=== PATIENT | male | born 1955 | race Caucasian/White ===

== ENCOUNTER 2023-07-23 20:48 | Inpatient (IN) | payer MEDICARE, OTHER, SELFPAY ==
[2023-07-23] VITALS (7 sets, daily range): BP systolic 115–159; BP diastolic 65–86; BMI 29.9
[2023-07-23 16:33] LABS: % Basophils 0.9 % (0-2); % Eosinophils 2.3 % (0-6); % Immature Granulocytes 0.1 % (0-0.5); % Lymphocytes 25.1 % (20.5-51.1); % Monocytes 11.7 % (1.7-9.3); % Neutrophils 59.9 % (42.2-75.2); Absolute Basophils 0.1 10^3/uL (0-0.2); Absolute Eosinophils 0.2 10^3/uL (0-0.7); Absolute Lymphocytes 1.7 10^3/uL (1.2-3.4); Absolute Monocytes 0.8 10^3/uL (0.1-0.6); Absolute Neutrophils 4.1 10^3/uL (1.4-6.5); Hemoglobin 15.2 g/dL (13.0-18.0); Mean Corpuscular Hgb 29.7 pg (27.0-31.0); Mean Corpuscular Volume 89.8 fL (80.0-94.0); Mean Platelet Volume 11.9 fL (7.4-10.4); Nucleated Red Blood Cells % 0 % (-); Platelet Count 200 10^3/uL (130-400); Red Blood Cell Count 5.12 10^6/uL (4.70-6.10); Red Cell Dist. Width 13.2 % (11.5-14.5); White Blood Cell Count 6.9 10^3/uL (4.8-10.8)
[2023-07-23 16:52] LABS: ALT (SGPT) 40 U/L (0-50); AST (SGOT) 47 U/L (17-59); Albumin 4.6 g/dl (3.5-5.0); Alkaline Phosphatase 56 U/L (38-126); Blood Urea Nitrogen 17 mg/dl (9-20); Calcium 10.4 mg/dl (8.4-10.2); Carbon Dioxide 23 mmol/L (22-30); Chloride 105 mmol/L (98-107); Glucose 93 mg/dl (70-99); Potassium 4.3 mmol/L (3.5-5.1); Sodium 138 mmol/L (135-145); Total Bilirubin 0.9 mg/dl (0.2-1.3); Total Protein 7.1 g/dl (6.3-8.2); eGFR > 60.00
[2023-07-23 17:01] LABS: Troponin I 0.033 ng/ml
--- NOTE | 2023-07-23 17:14 | ED.GENMED ---
History of Present Illness
General
Chief Complaint: Chest Pain
Source: patient
Time Seen by Provider: 07/23/23 16:56
Travel History
Have you had any contact with someone who has COVID-19?: No
Do you have any symptoms of coronavirus? Fever > 100 degrees, chills, cough, shortness of breath, sore throat, loss of taste or smell, muscle aches, or headache?: No
History of Present Illness
History of Present Illness:
68-year-old male with past medical history of hypertension, hyperlipidemia, previous diabetes) notes that this was managed with weight loss, diet and exercise and is no longer taking medication), known CAD with reported 50 to 69% blockage in a
coronary vessel presenting the emergency department for evaluation after 30 minutes prior to arrival while working on a sink developed chest pain described to be a tightening/gripping sensation that radiated from the left side of his chest to the
right and into his back associated with diaphoresis. Patient states that he still had the symptoms upon arrival to the emergency department however at time of my examination patient is currently chest pain-free. He did not take any medications
prior to arrival to the emergency department. He notes that despite his coronary artery disease he is not on any antiplatelet medication or anticoagulant. He does report good compliance with his medications. He denies any fevers, chills, rigors,
cough, pleurisy, palpitations, lower extremity edema/pain or any other concerns. He does note that few months ago he did have a cardiac stress test which was unremarkable. 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
concerned about the coronary artery disease and notes that his warehouse loader does not seem to be doing anything about it.
Past History
Past History
ED Past Medical History: Asthma (seasonal), CAD, HTN, Hypercholesterolemia, NIDDM (Diet controlled) and Other (Chronic diverticulitis, PNA, DVT, Renal calculus, )
ED Past Surgical History: Tonsilectomy and Other (Hernia repair); Negative Appendectomy, Bowel resection, Cardiac or Cholecystectomy
Social History
Tobacco: Former smoker
Alcohol: Occasional
Drug: None
Personal:
Living: with family
Employment: Employed
Family History
Family History: Hypertension
Review of Systems
Review of Systems
All Other Systems: ROS reviewed and negative except as documented in HPI and ROS
Phy Exam
Physical Exam
Physical Exam:
GENERAL: Alert , in no apparent distress
HEAD: Normocephalic atraumatic
EYE: Clear conjunctiva
NECK: Supple
ENT: o/p clr, mmm.
CARDIAC: Regular rate and rhythm, no murmur .
LUNGS: Clear breath sounds bilaterally, no acute respiratory distress, no wheezes/rales/rhonchi
ABDOMEN: Soft, without focal tenderness, no r/g, no cvat
NEUROLOGICAL: Alert and oriented
SKIN: Warm and dry, skin intact.
MUSCULOSKELETAL: No edema, well perfused.
PSYCH: Normal and appropriate interaction.
Scores
Heart Failure Risk
Heart Failure Risk Score: Not Applicable
Heart Score for Chest Pain Patients
STEMI patient?: No
History: Moderately Suspicious
ECG: Nonspecific Repolarization
Age: >/= 65 years
Risk Factors: >/= 3 Risk Factors or History of CAD
Troponin: </= Normal Limit
Heart Score for Chest Pain Patients: 6
Heart Score Risk: 20.3% MACE over next 6 weeks
Withdrawal Assessment of Alcohol
Withdrawal Assessment Completed?: Not applicable
Course
Orders/Labs/Results
Orders:
Orders
07/23/23 Breakfast
Cholesterol Lowering
At Your Request: Full Participation
Does patient need a safe tray?: No
Cholesterol Lowering: Sodium, 2 Gram
07/23/23 16:13
EKG [Electrocardiogram (*1)] Urgent
Reason for Study: Chest Pain
Electrocardiogram (*1) Urgent
Reason for Study: Chest Pain
EKG- Treatment ONCE
EKG- Treatment ONCE
07/23/23 16:23
CBC/With Diff [Complete Blood Count/With Diff] Urgent
CMP [Comprehensive Metabolic Panel] Urgent
Glycohemoglobin (HgbA1c) Urgent
Troponin I Urgent
07/23/23 17:07
Electrocardiogram (*1) Urgent
Reason for Study: Chest Pain
CT Chest/abd/pelvis Angio W/wo Urgent
Comment:
Reason For Exam: chest pain, radiating to back, known CAD
EKG- Treatment ONCE
07/23/23 18:40
Aspirin Chewable [Low Strength Aspirin] 324 mg PO NOW STA
07/23/23 19:19
Mag Hydrox/Al Hydrox/Simeth [Maalox] 30 ml Phenobarb/Hyoscy/Atropine/Scop [] 10 ml Viscous Lidocaine 2% [Xylocaine Viscous Cup] 10 ml PO NOW
07/23/23 19:22
Troponin I Urgent
07/23/23 20:20
Admit/Transfer Patient As Directed
Co-Sign Provider:
Level of Care: Inpatient admission
Assign to:: Telemetry
Physician / Group: murali sellers
Diagnosis: chest pain
Reason for Telemetry: Chest Pain syndromes
Date to Stop Telemetry: 07/25/23
Time to Stop Telemetry: 11:00
Reason for Hospitalization: chest pain
Expected length of stay greater than two midnights?: Yes
ELOS- Estimated Length of Stay in days: 3
I certify the patient meets the requirements for IP care: Yes
07/23/23 20:21
Code Status As Directed
Resuscitation Status: Full Code
07/23/23 21:36
Morphine Sulfate 1 mg IV Q4HPRN PRN
Ondansetron Injectable [Zofran] 4 mg IV Q6HPRN PRN
07/23/23 21:36
Echo 2D MMode Color/Doppler Routine
Reason for Study: chest pain
CARDIOLOGY CONSULT Routine
Consulting Provider: Byron Unger
Was physician already notified: Yes
Activity As Directed
Activity Level: As Tolerated
INT (Intravenous Needle Therapy) As Directed
Comment: maintain peripheral IV access
Intake/ Output As Directed
Frequency: Per unit guidelines
Obtain Records As Directed
Dates of Information to be Released: all
Type of Information Requested: Entire Record
Obtain Records from: entire medical records from [facility]
Vital Signs As Directed
Frequency: q4h
Weight As Directed
Frequency: Daily
DX Deep Vein Thrombosis Video Routine
07/23/23 22:00
Atorvastatin [Lipitor] 20 mg PO HS
Valsartan [Diovan] 40 mg PO HS
07/24/23 06:00
Electrocardiogram (*1) IN AM
Reason for Study: Chest Pain
Comment: at admission and Q3H for total of 3, to be done with each troponin
Basic Metabolic Panel IN AM
Cardiovascular Evaluation IN AM
Complete Blood Count/No Diff IN AM
07/24/23 07:30
Troponin I Q6H
Comment: at admit & Q3H for 3 total including ED draws, obtain ECG with each level
07/25/23 06:00
Basic Metabolic Panel IN AM
Complete Blood Count/No Diff IN AM
07/25/23 11:00
DC Protocol for Telemetry ONCE
07/26/23 06:00
Basic Metabolic Panel IN AM
Complete Blood Count/No Diff IN AM
07/27/23 06:00
Basic Metabolic Panel IN AM
Complete Blood Count/No Diff IN AM
07/28/23 06:00
Basic Metabolic Panel IN AM
Complete Blood Count/No Diff IN AM
Abnormal Lab Results
07/23/23
16:23
MPV 11.9 H fL
(7.4-10.4)
Absolute Monos (auto) 0.8 H 10^3/uL
(0.1-0.6)
Monocytes % 11.7 H %
(1.7-9.3)
Calcium 10.4 H mg/dl
(8.4-10.2)
07/23/23 16:23
07/23/23 16:23
Vital Signs
Initial and Last Documented VS:
Initial Vital Signs
Temp Pulse Resp BP Pulse Ox
97.8 F 58 18 159/86 100
07/23/23 16:15 07/23/23 16:15 07/23/23 16:15 07/23/23 16:15 07/23/23 16:15
Last Documented Vital Signs
Temp Pulse Resp BP Pulse Ox
98 F 65 19 139/75 99
07/23/23 21:46 07/23/23 21:46 07/23/23 21:46 07/23/23 21:46 07/23/23 21:46
Aircraft Powertrain Repairer consulted with Physician
Aircraft Powertrain Repairer consulted with physician?: Yes
Name of Physician Consulted: Kassi
MDM/Problems Addressed
Differential Diagnosis Includes:
ACS, aortic dissection, aneurysm, PE
MDM/Problems Addressed:
68-year-old male presenting to the emergency department for evaluation of sudden onset chest pain associated with diaphoresis about 30 minutes prior to arrival to the emergency department. Symptoms currently resolved. Patient is hemodynamically
stable. His blood pressure from triage to now during my exam is significantly improved as well and within normal limits. Patient with multiple risk factors for coronary artery disease and vascular disease, already has known significant stenosis of
a coronary vessel. Reports a normal stress test within the last few months. Currently not on any antiplatelets which is certainly odd given patient's known coronary artery disease greater than 50%. Given the radiating nature of the pain I do have
some concerns for aortic pathology so will obtain a dissection study. Given patient is pain-free at time of my exam we will repeat an EKG. Anticipate admission.
Chronic conditions affecting care: HTN and CAD
Acute Exacerbation and/or Progression of Chronic Illness: CAD
*Radiology
Radiology exam reviewed: radiology read reviewed
*Pulse Oximetry
Patient hypoxic: no
*EKG
Interpreted by ED Provider?: Yes
Comparison EKG: no changes
Heart Rate: 62
Rate: normal
Rhythm: sinus
[place]: normal axis
Ischemia: ST elevation (diffuse but unchanged from previous)
*Material Yard Clerk Interpretation
Rate: normal
Rhythm: sinus
*Critical Care Note
Total Time (30-74mins, 75-104mins- exclusive of procedures): Not Applicable
Data Reviewed
Review of Other/Old Records Reveals: Labs, Records and Radiology Studies (Patient have CT of the abdomen pelvis in August 2022 which did not show any aneurysms within the abdomen)
Comment
Comment:
Patient CT is negative for any acute pathologies. His troponin did come back at the high end of normal and I am suspicious for symptomatic angina given his known coronary artery disease and risk factors as well as not being on any antiplatelet
medications. Repeat troponin was ordered for 7:15 PM however will admit to hospitalist team for continued evaluation and treatment with anticipation of cardiology consult in the morning.
Patient Management
Discussion with other providers: Hospitalist
Escalation/DeEscalation of care consider admission/obs:
7 PM: Shortly after telling the patient about his CT workup as well as recommendation for him to stay in the hospital for further cardiac workup he states his chest pain came back slightly and is 2 out of 10. Repeat EKG was done which shows sinus
bradycardia 59 bpm. There are no ST segment changes or any other signs of ischemia. I do suspect this may be a little bit of anxiety over patient's presentation to the ER as well as his workup thus far. Will continue to monitor. Continue to
trend troponins. Hospitalist to admit.
ED Attending Note
-
Portions of this chart may have been created with voice recognition software.� Occasional wrong word or��sound alike� substitutions may have occurred due to the inherent limitations of voice recognition software.
Discharge Plan
Departure
Patient Disposition: Admit
Date of Disposition: 07/23/23
Time of Disposition: 20:06
Presentation/result/management discussed w/ accepting MD/DO: Hospitalist
Discharge Problem:
Chest pain
Interventions
Interventions:
*Risk Screen - Suicide Last Done: 07/23/23 16:15
*General Assessment Last Done: 07/23/23 16:15
ED- Fall Risk Assessment Last Done: 07/23/23 16:45
*ED COVID-19 Vaccine History Last Done: 07/23/23 16:15
*Nursing Disposition Last Done: 07/23/23 21:36
ED- Cardiac Assessment Last Done: 07/23/23 16:45
Discharge Date and Time
Discharge Date/Time: 07/23/23 21:36
[2023-07-23] MEDS: LOW STRENGTH ASPIRIN 324 MG PO (18:42)
[2023-07-23 19:50] LABS: Troponin I 0.026 ng/ml
--- NOTE | 2023-07-23 20:44 | HPS.HSE ---
Addendum entered and electronically signed by Zenaida España MD 07/23/23 21:01:
d/w Dr. Unger - add BB, IV heparin and keep NPO p MN just in case
Original Note:
Family Physician
-
Family Physician: BARON TALAVERA PA-C
Chief Complaint
-
chest pain
History of Present Illness
68 y/o M, hx of CAD, HTN, HLD and DM (resolved with weight loss) presents to ER for Chest pain. Patient reports chest pain today with sweats. This occured as he was exerting himself while working on his kitchen sink. The pain was 7/10, central
chest, radiating down both arms. Improved with rest and time but remains persistant at 2/10 now. No associated lightheadedness, palpitations or SOB. No other complaints.
Patient reports nearly 100 lb weight loss on vegan diet but recently switched over the 'carnivore' diet (mostly meats).
He was cathed at in ~2013 at [facility] with 40% disease and most recent cardiac MRI showed 50-69% disease. A stress test from 3 months ago was normal.
in ER, trop .03 and then .026. EKG with sinus bradycardia.
Medical History
Past Medical History
Past Medical History: Reports Other (CAD, HTN, HLD and DM)
Past Surgical History: Reports Tonsilectomy and Other (inguinal hernia repair)
Social History
Tobacco: Former Smoker
Alcohol: Occasional
Drug: None
Personal:
Living: With Family
Family History
Family History: Hypertension
Allergies / Home Medications
Allergies reflects when Allergies were last updated in [facility].
Home Medications with original date entered in [facility]
Allergy/Medication List:
Allergies
Allergy/AdvReac Type Severity Reaction Status Date / Time
lisinopril Allergy Shortness Verified 07/23/23 16:13
of Breath
tetanus toxoid, adsorbed Allergy Unknown Verified 07/23/23 16:13
Home Medications
atorvastatin 20 mg tablet 20 mg PO HS High cholesterol 01/11/21
ascorbic acid (vitamin C) 500 mg tablet (Vitamin C) 1,000 mg PO QPM Supplement 01/24/21
EPA-DHA 2 g PO QPM 07/23/23
cholecalciferol (vitamin D3) 5 g PO QPM 07/23/23
coenzyme Q10 100 mg capsule (Co Q-10) 100 mg PO QPM 07/23/23
magnesium 250 mg tablet 500 mg PO QPM 07/23/23
multivitamin 1 tab PO DAILY 07/23/23
valsartan 40 mg tablet 40 mg PO HS 07/23/23
vitamin B complex 1 tab PO QPM 07/23/23
zinc acetate 50 mg (zinc) capsule 50 mg PO QPM 07/23/23
Review of Systems
-
A 12 point ROS was completed and negative except as noted: Yes
Physical Exam
Vital Signs
Vital Signs
Temp Pulse Resp BP Pulse Ox
97.8 F 57 21 126/77 97
07/23/23 16:15 07/23/23 17:30 07/23/23 17:30 07/23/23 17:00 07/23/23 17:30
Physical Exam
General: No Apparent Distress
Respiratory: No Wheezes or Rales
Cardiac: S1/S2 and Regular Rhythm
Neuro: AO x 3
Hematologic/Lymphatic: No Lymphadenopathy
Psych: Calm
Laboratory Results
-
07/23/23 16:23
07/23/23 16:23
Laboratory Results
Total Bilirubin 0.9 mg/dl (0.2-1.3) 07/23/23 16:23
AST 47 U/L (17-59) 07/23/23 16:23
ALT 40 U/L (0-50) 07/23/23 16:23
Alkaline Phosphatase 56 U/L (38-126) 07/23/23 16:23
Troponin I 0.026 ng/ml 07/23/23 19:22
Data Reviewed
-
Lab Data: Labs Reviewed by me
Impression/Plan
-
Assessment:
typical chest pain
- OBS tele
- trend trop
- AM EKG
- prn SL nitro
- start ASA
- continue statin; check lipids. check A1c
- Echo
- CBC cardiology consult
- records request from [facility] - he would like to switch to [facility]
- dietary consult: he is now on carnivore diet (from vegan diet)
Essential HTN
HLD
Diet controlled DM
- continue ARB
- check A1c and lipids
DVT ppx: Lovenox
Code: Full
[2023-07-23] MEDS: NITROSTAT (SUBLINGUAL) 0.400000000000000022 MG SL (21:04)
[2023-07-23 22:05] LABS: APTT 27.3 Sec (23.4-35.0)
[2023-07-23] MEDS: HEPARIN 25000 UNITS/250 ML IV (22:11)
[2023-07-23] MEDS: LIPITOR 20 MG PO (22:11)
[2023-07-23] MEDS: NITRO-BID 1 INCH TOPICAL (22:11)
[2023-07-23] MEDS: DIOVAN 40 MG PO (22:13)
--- NOTE | 2023-07-23 22:34 | PTCARENOTE ---
Pt admitted to 4E. AAOx3. NSR w/ prolong QT. No c/o CP. Lungs. GI, WNL. Heparin gtt initiated. Pt was informed about the plan for tomorrow and will be NPO. Pt appears comfortable in bed and call real within reach.
[2023-07-24] VITALS (14 sets, daily range): BP systolic 110–147; BP diastolic 68–97; BMI 29.9
--- NOTE | 2023-07-24 03:05 | DOWNTIME ---
There was a [employer] Client Mechanic Assistant Downtime on 07/23/2023 from 0100 to 07/24/2023 at 0300. Downtime documentation of patient's care, including medication administrations, has been reconciled in the electronic record per guidelines. Refer to the
patient's paper chart under the miscellaneous tab to see printed paper medication records and downtime forms.
[2023-07-24] MEDS: NITRO-BID 1 INCH TOPICAL (04:32)
[2023-07-24 04:47] LABS: Hematocrit 40.6 % (39.0-52.0); Mean Corp Hgb Conc. 34.5 g/dL (33.0-37.0); Mean Corpuscular Hgb 29.9 pg (27.0-31.0); Mean Corpuscular Volume 86.8 fL (80.0-94.0); Mean Platelet Volume 11.6 fL (7.4-10.4); Platelet Count 171 10^3/uL (130-400); Red Blood Cell Count 4.68 10^6/uL (4.70-6.10); Red Cell Dist. Width 13.2 % (11.5-14.5); White Blood Cell Count 6.4 10^3/uL (4.8-10.8)
[2023-07-24 04:55] LABS: APTT 51.2 Sec (23.4-35.0)
[2023-07-24 05:11] LABS: Blood Urea Nitrogen 12 mg/dl (9-20); Calcium 9.6 mg/dl (8.4-10.2); Carbon Dioxide 24 mmol/L (22-30); Chloride 106 mmol/L (98-107); Estimated Creatinine Clearance > 125 ml/min; Glucose 83 mg/dl (70-99); HDL Cholesterol 54 mg/dl; LDL Cholesterol, Calculated 65 mg/dl; Potassium 3.8 mmol/L (3.5-5.1); Sodium 139 mmol/L (135-145); Total Cholesterol 127 mg/dl (50-199); Triglyceride 44 mg/dl (10-149); Very Low Density Lipoprotein 8 mg/dl (0-30); eGFR > 60.00
--- NOTE | 2023-07-24 06:35 | W.PN.UPDATE ---
Update Note
Progress Note Update
critical troponin at 1.320, patient is on Heparin drip, NPO. Patient asymptomatic at present, stable VS, Dr. Unger made aware
[2023-07-24] MEDS: LOW STRENGTH ASPIRIN 81 MG PO (08:54)
--- NOTE | 2023-07-24 09:44 | CON.CAR ---
Consultation
Consultation Request
Date/Time Consultation Requested: July 24, 2023
Date/Time Consultation Performed: July 24, 2023
Requesting Provider: Hospitalist
Performing Provider: Howard Salas
Reason for Consultation: Chest pain
Medical History
-
Chief Complaint: Chest pain
History of Present Illness:
68-year-old male with history of mild CAD, hypertension, hyperlipidemia, and previous type 2 diabetes resolves with weight loss and former smoker is here with chest pain. He tells me that yesterday he was switching and fixing a sink. During this
time. He developed chest pain that was central in location radiation down both arms and back and profuse sweating. He had no other symptoms. However, because of the sweating with mild exertion as well as chest pain he was concern for heart artery
disease. He then decided to present to the emergency room. He was given nitro in the emergency room which resolved his chest pain. On previous heart catheterizations he was only noted to have mild coronary artery disease. Additionally, he was
able to work out 2 days ago with heavy weights and had no symptoms.
Past Medical History
Past Medical History: Other (CAD, hypertension, hyperlipidemia, and previous type 2 diabetes resolves with weight loss and former smoker )
Past Surgical History: Tonsilectomy and Other (inguinal hernia repair )
Social History
Tobacco: Former Smoker
Alcohol: Occasional
Personal:
Living: With Family
Family History
Family History: Reviewed & Not Pertinent
Allergies / Home Medications
Allergy/AdvReac Type Severity Reaction Status Date / Time
lisinopril Allergy Shortness Verified 07/23/23 16:13
of Breath
tetanus toxoid, adsorbed Allergy Unknown Verified 07/23/23 16:13
�Medication �Instructions �Recorded �Confirmed �Type
atorvastatin 20 mg tablet 20 mg PO HS High cholesterol 01/11/21 07/23/23 History
ascorbic acid (vitamin C) 500 mg 1,000 mg PO QPM Supplement 01/24/21 07/23/23 History
tablet (Vitamin C)
EPA-DHA 2 g PO QPM 07/23/23 07/23/23 History
cholecalciferol (vitamin D3) 5 g PO QPM Supplement 07/23/23 07/23/23 History
coenzyme Q10 100 mg capsule (Co 100 mg PO QPM 07/23/23 07/23/23 History
Q-10)
magnesium 250 mg tablet 500 mg PO QPM Supplement 07/23/23 07/23/23 History
multivitamin 1 tab PO DAILY Supplement 07/23/23 07/23/23 History
valsartan 40 mg tablet 40 mg PO HS Blood Pressure 07/23/23 07/23/23 History
vitamin B complex 1 tab PO QPM Supplement 07/23/23 07/23/23 History
zinc acetate 50 mg (zinc) capsule 50 mg PO QPM Supplement 07/23/23 07/23/23 History
Review of Systems
-
All other systems: Negative unless noted
Physical Exam
Vital Signs
Temp Pulse Resp BP Pulse Ox
97.6 F 62 18 134/78 98
07/24/23 08:07 07/24/23 08:07 07/24/23 08:07 07/24/23 08:07 07/24/23 08:07
Lab Results
07/24/23 04:35
07/24/23 04:35
Troponin I 2.010 ng/ml H* D 07/24/23 07:18
Physical Exam
General: Well Developed and Well Nourished
HEENT: Normocephalic and Moist Mucous Membranes
Respiratory: Clear and Non Labored Respirations
Cardiac: S1/S2 and Regular Rhythm
GI: Soft
Musculoskeletal: No Clubbing, No Cyanosis and No Edema
Skin: Warm and Dry
Neuro: AO x 3
Hematologic/Lymphatic: No Lymphadenopathy
Psych: Calm
Impression / Plan
-
68-year-old male with history of mild CAD, hypertension, hyperlipidemia, and previous type 2 diabetes resolves with weight loss and former smoker is here with chest pain, elevated troponins, and likely NSTEMI.
NSTEMI
-Heparin aspirin statin and Hedis Manager later today
-Echocardiogram pending
-Blood pressure control and risk factor management
Hypertension
-Continue ARB
Data Reviewed
-
EKG: Tracing Personally Visualized and interpreted (sr)
Medical Tests (Nuc Med, Echo etc): Report Reviewed by me
Labs: Labs Reviewed by me
[2023-07-24] MEDS: NITRO-BID TOPICAL (10:03)
--- NOTE | 2023-07-24 10:22 | ITS.CL.ANGIO ---
Inspector Production Plastic Parts - Angioplasty
Angioplasty
Procedure Report:
CARDIAC CATHETERIZATION REPORT
Date of Procedure: 07/24/2023
Referring: Howard Salas M.D.
INDICATION: Non-ST elevation myocardial infarction.
PROCEDURE:
1. Left heart catheterization.
2. Coronary angiography.
3. Successful PCI of the mid RPDA.
4. Successful IFR of the mid LAD.
ACCESS:
6 [place] right radial artery.
CATHETERS:
1. 5 [place] JR4.
2. 5 [place] JL 3.5.
3. 6 [place] JR4 guiding catheter.
4. 6-minute EBU 3.5 guiding catheter.
HEMODYNAMIC DATA
Weight (kg): 88.9
AO (s/d/x, mmHg): 135/86/108
LV (s/x mmHg): 137/11
LEFT VENTRICULOGRAPHY: Not performed.
CORONARY ANGIOGRAPHY
Dominance: Right.
Left Main: Normal size, bifurcating vessel. There is no coronary artery disease.
LAD: Large size vessel giving rise to 2 significant diagonals before wrapping around the apex and supplying the distal inferior wall. There is a 50-60% lesion in the mid vessel, spanning the origin of the second diagonal.
Ramus: Congenitally absent.
Circumflex: Normal size, nondominant vessel giving rise to 2 obtuse marginals. The first obtuse marginal is a small, 1 mm vessel. The second obtuse marginal is a large vessel which subsequently trifurcates into 3 daughter branches and supplies
the majority of the lateral and inferolateral wall. There is no coronary artery disease.
RCA: Large size, dominant vessel with a significant posterolateral arcade. There is a hazy, 80% lesion in the mid RPDA.
INTERVENTION(S)
1. Successful PCI of the culprit, 80% mid RPDA lesion (Medtronic [place] 2.25 x 12 CONNIE) with reduction in stenosis to 0%, maintaining EAGLE-3 flow.
2. Successful IFR of the 60% mid LAD lesion, demonstrating nonocclusive disease (IFR = 0.96).
Narrative:
The decision was made to proceed with percutaneous coronary intervention. The diagnostic catheter was removed over a wire and a 6Fr JR4 guiding catheter was advanced to the aortic root and seated in the right coronary artery. Additional heparin was
given and a Power Turn Flex wire was advanced into the distal RPDA. The 80% mid RPDA lesion was predilated with a 2.0 x 12 semi-compliant balloon to 12 matt. The semi-compliant balloon was removed and a Medtronic [place] 2.25 x 12 drug-eluting
stent was advanced. The stent was deployed at 12 atmospheres. The stent balloon was removed. Angiography was performed in orthogonal views, confirming good stent expansion and an excellent angiographic result. The coronary wire was withdrawn and the
guide was disengaged from the artery.
The decision was made to perform physiologic testing. The 6 [place] JR4 guiding catheter was removed over a wire and exchanged for a(n) 6 [place] EBU 3.5 guiding catheter. The guiding catheter was advanced into the ascending aorta and seated in the
left main coronary artery. An iFR wire was zeroed outside of the body, then inserted into the guiding sheath. The wire was advanced and the transducer was normalized just outside of the guiding catheter tip. The wire was advanced into the distal
LAD. Three iFR measurements were taken. The lesion was determined to be nonocclusive (0.96). The catheter was disengaged and the wire was removed. The catheter was removed over a J-wire.
Closure Device: Vascular band.
Radiation (mGy): 1002.06
DAP (cm2.Gy): 79.4466
Fluoroscopy time (minutes): 7.9
Sedation time (minutes): 46
CONCLUSIONS
1. Right dominant circulation with a nonocclusive 50-60% mid LAD lesion (IFR = 0.96) and a culprit, 80% mid RPDA lesion status post successful PCI (Medtronic [place] 2.25 x 12 CONNIE) with reduction in stenosis to 0%, maintaining EAGLE-3 flow.
2. Normal filling pressures (LVEDP = 11 mmHg at 88.9 kg).
RECOMMENDATIONS:
1. Expectant management after cardiac catheterization via right radial approach.
2. Limited weight bearing on the right wrist for one week.
3. Dual antiplatelet therapy for at least 12 months, followed by aspirin indefinitely. The patient was given ticagrelor in the procedure, but it appears that this is cost prohibitive. We will transition to clopidogrel.
4. Increase atorvastatin to 40 mg daily for secondary prevention. Goal LDL <55.
5. Guideline directed medical therapy as hemodynamics tolerate.
6. Echocardiogram pending.
7. Referral to cardiac rehab.
Copy to: Howard Salas M.D., Sergey Faust PA-C, Sergey Carver M.D.
Lasha Umaña DO, FACC, FACP
[2023-07-24 10:41] LABS: Glycohemoglobin (HgbA1c) 5.1 % (4.0-5.6)
[2023-07-24] MEDS: NSS 1000 IV (11:15)
--- NOTE | 2023-07-24 11:18 | CM ---
Alert awake oriented patient who lives with his Jannette who lives in a 2 story home with 1 step to enter and 13 steps to bed and bathroom. He is independent in driving and in all activities of daily living.He was offered VN he declined need.No
adaptive devices. MD requested Brilinta cost which is $429.08 Informed MD of cost and said CM would give him a coupon. MD changed to Plavix. Pt now on IVU floor.
No VN hx / No SNF history
Pharmacy [facility]
PCP DR Faust
PLAN Home Declined VN
--- NOTE | 2023-07-24 11:48 | W.PN.HOSP.TC ---
Today's Communication/Plan
-
see plan
Assessment / Plan
Assessment / Plan
68 y/o M, hx of CAD, HTN, HLD and DM (resolved with weight loss) presents to ER for Chest pain found to have NSTEMI now s/p cardiac cath s/p PCI to RPDA 80% lesion.
CONCLUSIONS
1. Right dominant circulation with a nonocclusive 50-60% mid LAD lesion (IFR = 0.96) and a culprit, 80% mid RPDA lesion status post successful PCI (Medtronic [place] 2.25 x 12 CONNIE) with reduction in stenosis to 0%, maintaining EAGLE-3 flow.
2. Normal filling pressures (LVEDP = 11 mmHg at 88.9 kg).
NSTEMI
-s/p cardiac cath this morning with results above
-continue Asa/Plavix
-HOUSEKEEPER CAREGIVER Lipitor increased
-HOUSEKEEPER CAREGIVER Valsartan
-appreciate cardiology
-F/U TTE
FULL CODE
Anticipated Discharge: Within 24 hours
Subjective/Interval History
-
Date of Service: July 24, 2023
seen post cath
no chest pain
right wrist access with band currently on
Objective Data
-
Labs:
Laboratory Results
07/24/23 07/24/23
04:35 11:15
WBC 6.4
Hgb 14.0
Hct 40.6
Plt Count 171
APTT 51.2 H Pending
Sodium 139
Potassium 3.8
Chloride 106
Carbon Dioxide 24
BUN 12
Creatinine 0.6 L
Glucose 83
Calcium 9.6
Vital Signs:
Vital Signs
Temp Pulse Resp BP Pulse Ox
97.8 F 62 20 134/78 97
07/24/23 10:42 07/24/23 08:07 07/24/23 10:42 07/24/23 08:07 07/24/23 10:42
I&O
07/23/23 07/24/23 07/25/23
06:59 06:59 06:59
Intake Total 580 / 580
Output Total 900 / 900 110 / 110
Balance -320 / -320 -110 / -110
Review of Systems
-
History Source: Patient
All other systems: Reviewed and negative
Physical Exam
-
General: No Apparent Distress
Respiratory: Clear to Auscultation; Negative Wheezes
Cardiac: S1/S2
GI: Soft and Nontender
Musculoskeletal: No Edema
Skin: Warm and Dry; Negative Rash
Psych: Calm
Data Reviewed
-
Diagnostic Radiology: Report Reviewed by me
Labs: Labs Reviewed by me
--- NOTE | 2023-07-24 16:48 | PTCARENOTE ---
Pt received post cath at 1045. Right radial band intact with no bleeding or hematoma. Pt denies any chest pain or sob. Pt oob post bedrest. Gait steady, no c/o offered.
[2023-07-24] MEDS: BRILINTA 90 MG PO (19:51)
--- NOTE | 2023-07-24 21:07 | PTCARENOTE ---
Assumed care of patient at change of shift. Ambulates self in room and denies any dizziness. AAOx3, VSS, and denies any chest pain. Tele monitor shows SR-Sinus rashid. HR in the 50-60's at rest. Right radial dressing intact, and pt aware of activity
restrictions. Aware of POC, call real in reach.
[2023-07-24] MEDS: LIPITOR 80 MG PO (22:23)
[2023-07-24] MEDS: DIOVAN 40 MG PO (22:24)
[2023-07-25 04:14] VITALS: BP 126/85
[2023-07-25 04:16] VITALS: BMI 29.4
[2023-07-25 05:28] LABS: Hematocrit 44.4 % (39.0-52.0); Hemoglobin 14.9 g/dL (13.0-18.0); Mean Corp Hgb Conc. 33.6 g/dL (33.0-37.0); Mean Corpuscular Hgb 29.6 pg (27.0-31.0); Mean Corpuscular Volume 88.3 fL (80.0-94.0); Platelet Count 191 10^3/uL (130-400); Red Blood Cell Count 5.03 10^6/uL (4.70-6.10); Red Cell Dist. Width 13.3 % (11.5-14.5); White Blood Cell Count 6.8 10^3/uL (4.8-10.8)
[2023-07-25 06:02] LABS: Blood Urea Nitrogen 10 mg/dl (9-20); Calcium 9.7 mg/dl (8.4-10.2); Carbon Dioxide 24 mmol/L (22-30); Chloride 107 mmol/L (98-107); Estimated Creatinine Clearance 114 ml/min; Glucose 88 mg/dl (70-99); Potassium 4.3 mmol/L (3.5-5.1); Sodium 139 mmol/L (135-145); eGFR > 60.00
[2023-07-25 07:31] VITALS: BP 135/86
[2023-07-25] MEDS: LOW STRENGTH ASPIRIN 81 MG PO (07:55)
[2023-07-25] MEDS: FLUSH (NSS) 1 FLUSH IV (07:55)
[2023-07-25] MEDS: PLAVIX 600 MG PO (07:55)
--- NOTE | 2023-07-25 08:10 | W.PN.HOSP.TC ---
Today's Communication/Plan
-
see plan
Assessment / Plan
Assessment / Plan
68 y/o M, hx of CAD, HTN, HLD and DM (resolved with weight loss) presents to ER for Chest pain found to have NSTEMI now s/p cardiac cath s/p PCI to RPDA 80% lesion.
CONCLUSIONS
1. Right dominant circulation with a nonocclusive 50-60% mid LAD lesion (IFR = 0.96) and a culprit, 80% mid RPDA lesion status post successful PCI (Medtronic [place] 2.25 x 12 CONNIE) with reduction in stenosis to 0%, maintaining EAGLE-3 flow.
2. Normal filling pressures (LVEDP = 11 mmHg at 88.9 kg).
NSTEMI
-s/p cardiac cath 07/23 with results above
-continue Asa/Plavix
-MAINTENANCE MECHANIC HELPER Lipitor increased
-MAINTENANCE MECHANIC HELPER Valsartan
-appreciate cardiology
-TTE with EF 73%; no regional WMA
-likely DC today after seen by cardiology and ambulates with RN
FULL CODE
Anticipated Discharge: Within 24 hours
Subjective/Interval History
-
Date of Service: July 25, 2023
feeling well
no chest pain
Objective Data
-
Labs:
Laboratory Results
07/24/23 07/25/23
11:15 04:31
WBC 6.8
Hgb 14.9
Hct 44.4
Plt Count 191
APTT Cancelled
Sodium 139
Potassium 4.3
Chloride 107
Carbon Dioxide 24
BUN 10
Creatinine 0.6 L
Glucose 88
Calcium 9.7
Vital Signs:
Vital Signs
Temp Pulse Resp BP Pulse Ox
98.1 F 58 20 135/86 97
07/25/23 07:29 07/25/23 07:31 07/25/23 07:29 07/25/23 07:31 07/25/23 07:29
I&O
07/24/23 07/25/23 07/26/23
06:59 06:59 06:59
Intake Total 580 / 580 360 / 360 180 / 180
Output Total 900 / 900 110 / 110
Balance -320 / -320 250 / 250 180 / 180
Review of Systems
-
History Source: Patient
All other systems: Reviewed and negative
Physical Exam
-
General: No Apparent Distress
Respiratory: Clear to Auscultation; Negative Wheezes
Cardiac: S1/S2
GI: Soft and Nontender
Musculoskeletal: No Edema
Skin: Warm and Dry; Negative Rash
Psych: Calm
Data Reviewed
-
Diagnostic Radiology: Report Reviewed by me
Labs: Labs Reviewed by me
[2023-07-25 08:15] LABS: ACT-LR - POC > 397 Seconds (116-155)
--- NOTE | 2023-07-25 09:03 | W.PN.CD ---
Today's Communication / Plan
-
Continue aspirin, plavix, valsartan, and increased atorvastatin
2 week f/u with SKILLS TRAINER
Ok to d/c, we will signoff please calll with questions/concerns
Impression / Plan
-
68-year-old male with history of mild CAD, hypertension, hyperlipidemia, and previous type 2 diabetes resolves with weight loss and former smoker is here with chest pain, elevated troponins, and likely NSTEMI.
NSTEMI
-echo below
- aspirin plavix 1 year
- atorva 80
- HR is well controlled
Hypertension
-valsartan 40 mg, he will keep log and let us know hwat his BP are running
HLD
- atorva 80 mg
Subjective: feels great ready to dc
TTE: CONCLUSIONS
Normal left ventricular size, wall thickness and systolic function.
No regional wall motion abnormalities are seen.
LV ejection fraction is 73 % by Bullard's method of discs.
Normal diastolic function.
Normal right ventricular size and function.
No significant valvular disease.
No prior study available for comparison.
Physical Exam
Vital Signs/Labs
Vital Signs
Temp Pulse Resp BP Pulse Ox
98.1 F 58 20 135/86 97
07/25/23 07:29 07/25/23 07:31 07/25/23 07:29 07/25/23 07:31 07/25/23 07:29
07/24/23 07/25/23 07/26/23
06:59 06:59 06:59
Actual Weight 196 lb 9.6 oz 193 lb 9.054 oz
07/25/23 04:31
07/25/23 04:31
APTT Cancelled 07/24/23 11:15
Triglycerides 44 mg/dl (10-149) 07/24/23 04:35
LDL Cholesterol, Calc 65 mg/dl 07/24/23 04:35
VLDL Cholesterol, Calc 8 mg/dl (0-30) 07/24/23 04:35
HDL Cholesterol 54 mg/dl 07/24/23 04:35
LAB Results
07/23/23 07/23/23 07/23/23
16:23 19:22 22:30
Troponin I 0.033 0.026 Cancelled
07/24/23 07/24/23 07/24/23
01:30 04:35 07:18
Troponin I 1.320 H* D Cancelled 2.010 H* D
07/24/23 07/24/23
11:44 18:00
Troponin I 1.210 H* D Cancelled
Physical Exam
Constitutional: No acute distress
Cardiovascular: Rhythm & rate is regular and Pedal edema is absent
Respiratory: Respiratory effort normal and Lungs clear to auscul.
GI: Soft
Neuro/Psych: AO x 3
Data Reviewed
-
Date of Service: July 25, 2023
EKG: Tracing Personally Visualized and interpreted (sr)
Echo: Tracing Personally Visualized and interpreted and Report Reviewed by me
Labs: Labs Reviewed by me
--- NOTE | 2023-07-25 09:33 | W.DS.TRANS ---
DC Summary - Human Resources Project Manager
-
Discharge Instructions:
Discharge Diagnosis/Procedures NSTEMI, s/p angioplasty and stent to Right
Coronary artery
Diet Low Cholesterol
Activity As tolerated
Driving Restrictions As prior to admission
Bathing Restrictions None
Other Services Cardiac Rehab
Instructions:
Stand-Alone Forms: DC Instructions- Cath/EP Lab
Changes to Home Medications: Yes
Discharge Medications:
DC Medications w/original date entered in [facility]
ascorbic acid (vitamin C) 500 mg tablet (Vitamin C) 1,000 mg PO QPM Supplement 01/24/21
EPA-DHA 2 g PO QPM 07/23/23
cholecalciferol (vitamin D3) 5 g PO QPM Supplement 07/23/23
coenzyme Q10 100 mg capsule (Co Q-10) 100 mg PO QPM 07/23/23
magnesium 250 mg tablet 500 mg PO QPM Supplement 07/23/23
multivitamin 1 tab PO DAILY Supplement 07/23/23
valsartan 40 mg tablet 40 mg PO HS Blood Pressure 07/23/23
vitamin B complex 1 tab PO QPM Supplement 07/23/23
zinc acetate 50 mg (zinc) capsule 50 mg PO QPM Supplement 07/23/23
aspirin 81 mg chewable tablet (Children's Aspirin) 81 mg PO DAILY #30 tabs 07/25/23
atorvastatin 80 mg tablet 80 mg PO HS #30 tabs 07/25/23
clopidogrel 75 mg tablet 75 mg PO DAILY #90 tabs 07/25/23
Home Medication Changes
addition of aspirin, statin and plavix
Pending Results: No
--- NOTE | 2023-07-25 09:51 | CM ---
Reviewed chart. Mr. Jolly was transferred to IVU. Met with Mr. Jolly to review discharge plans. Prior to admission he resides with his spouse in a two story home with one step to enter. He has a full flight of steps to get to
bedroom/full bathroom. Prior to admission he was independent with ambulation and adls. He has a prescription plan and uses [facility]. Medical work-up in progress. The discharge plan is to return home with is spouse when medically stable.
--- NOTE | 2023-07-25 10:34 | PTCARENOTE ---
The patient ambulated in the halls without difficulty. He has no complaints of chest pain or SOB. NSR has been noted on the monitor. Right radial site intact. His vital remained stable. Discharge instructions were given and he was discharged home.
--- NOTE | 2023-07-25 14:14 | W.DCSUMMARY ---
Discharge Summary
Discharge Data
Date of Admission: 07/23/23
Date of Discharge: 07/25/23
-
Pending Results: No
Hospital Course
Discharging Physician : Dr. Betzy Nayak
Disposition : Home
Primary care physician : Dr. Sergey Faust
Principal Discharge diagnosis : NSTEMI
Hospital Course :
68 y/o M, hx of former smoker, CAD, HTN, HLD and DM (resolved with weight loss) presents to ER for Chest pain that occurred when he was switching and fixing a sink. EKG NSR, Troponin elevated. He was admitted to medicine with cardiology
consulting. He was started on aspirin and heparin gtt. On 07/23 he went for cardiac cath where he had PCI to RPDA 80% lesion. TTE with normal EF and no WMA.
He is discharge with new scripts for Aspirin, Plavix and increased Lipitor dosing.
Time spent on discharge was 32 minutes.
Important imaging findings :
CHEST/ABDOMEN/PELVIS CTA
IMPRESSION:
1. No aortic aneurysm or dissection.
2. No other significant abnormality identified in the chest, abdomen or pelvis as described above.
TTE: CONCLUSIONS
Normal left ventricular size, wall thickness and systolic function.
No regional wall motion abnormalities are seen.
LV ejection fraction is 73 % by Bullard's method of discs.
Normal diastolic function.
Normal right ventricular size and function.
No significant valvular disease.
No prior study available for comparison.
Procedure findings :
Cardiac Cath 07/25/23
CONCLUSIONS
1. Right dominant circulation with a nonocclusive 50-60% mid LAD lesion (IFR = 0.96) and a culprit, 80% mid RPDA lesion status post successful PCI (Medtronic [place] 2.25 x 12 CONNIE) with reduction in stenosis to 0%, maintaining EAGLE-3 flow.
2. Normal filling pressures (LVEDP = 11 mmHg at 88.9 kg).
Discharge Plan
-
Patient Disposition: Home (Routine Discharge)
Discharge Diagnosis/Procedures: NSTEMI, s/p angioplasty and stent to Right Coronary artery
Diet: Low Cholesterol
Activity: As tolerated
Driving Restrictions: As prior to admission
Bathing Restrictions: None
Other Services: Cardiac Rehab
Stand Alone Forms: DC Instructions- Cath/EP Lab
Referrals:
[facility] [Outside] - 08/09/23 9:30 am
(Cardiac Rehab Orientation appointment is on Saturday08/09/23 at 930AM
The Cardiac Rehab gym is located on the first floor of the [facility].)
Sherly Dash CRNP [Specified Professional Personl] - 08/08/23 1:00 pm (Cardiology followup appointment)
Sergey Faust PA-C [Family Provider] - in less than 1 week
Additional Discharge Medication Instructions: Addition of Aspirin and Plavix. Take aspirin indefinitely (can receive refills or buy over the counter). Take Plavix x 1 year. You are prescribed 3 months of Plavix and will need refills.
Your Atorvastatin is increased from 20mg to 80mg in evenings.
Prescriptions:
New
atorvastatin 80 mg Tablet
80 mg PO HS Qty: 30 0RF
clopidogrel 75 mg Tablet
75 mg PO DAILY Qty: 90 0RF
aspirin [Children's Aspirin] 81 mg Tablet,Chewable
81 mg PO DAILY Qty: 30 0RF
Continued
ascorbic acid (vitamin C) [Vitamin C] 500 MG tablet
1,000 mg PO QPM
multivitamin Tablet
1 tab PO DAILY
vitamin B complex Tablet Extended Release
1 tab PO QPM
zinc acetate 50 mg (zinc) Capsule
50 mg PO QPM
magnesium 250 mg Tablet
500 mg PO QPM
valsartan 40 mg tablet
40 mg PO HS
coenzyme Q10 [Co Q-10] 100 mg Capsule
100 mg PO QPM
EPA-DHA
2 g PO QPM
cholecalciferol (vitamin D3)
5 g PO QPM
Discontinued
atorvastatin 20 MG tablet
20 mg PO HS
Discharge Orders:
Discharge Patient (As Directed); Ordered 07/25/23
Ordered By: Betzy Nayak
Care Plan Goals
Care Plan Goals:
Problem: Readiness for enhanced knowledge related to diagnosis and treatment plan
Goal: Understand your diagnosis and treatment plan needs, including medications if applicable.
Instructions: Know your diagnosis, underlying causes and treatment plan options, including medications if applicable. Consult with your health care team to learn about your diagnosis and treatment plan, including medications if applicable.
Discharge Date and Time
Discharge Date/Time: 07/25/23 10:45
Print Language: NORWEGIAN
== END 2023-07-25 10:45 | disposition home or self-care (01) | DRG 322 ==
LOC: IVU 20:48
PROVIDERS: Nurse Practitioner; Physician Assistant Medical; Registered Nurse; ADMITTING PHYSICIAN Internal Medicine; ATTENDING PHYSICIAN Student in an Organized Health Care Education/Training Program; EMERGENCY PHYSICIAN Emergency Medicine; FAMILY PHYSICIAN Physician Assistant Medical; OTHER PHYSICIAN Internal Medicine Cardiovascular Disease
PROC: 4A033BC Measurement of Arterial Pressure, Coronary, Percutaneous Approach (ICD-10-PCS; 2023-07-24)
PROC: 027034Z Dilation of Coronary Artery, One Artery with Drug-eluting Intraluminal Device, Percutaneous Approach (ICD-10-PCS; 2023-07-24)
PROC: B2111ZZ Fluoroscopy of Multiple Coronary Arteries using Low Osmolar Contrast (ICD-10-PCS; 2023-07-24)
PROC: 4A023N7 Measurement of Cardiac Sampling and Pressure, Left Heart, Percutaneous Approach (ICD-10-PCS; 2023-07-24)
DX: I21.4 Non-ST elevation (NSTEMI) myocardial infarction (principal); E78.00 Pure hypercholesterolemia, unspecified; I10 Essential (primary) hypertension; E11.9 Type 2 diabetes mellitus without complications; R63.4 Abnormal weight loss; I25.10 Atherosclerotic heart disease of native coronary artery without angina pectoris; J45.909 Unspecified asthma, uncomplicated; Z68.29 Body mass index [BMI] 29.0-29.9, adult; Z79.84 Long term (current) use of oral hypoglycemic drugs; Z79.899 Other long term (current) drug therapy; Z87.891 Personal history of nicotine dependence
CPT/HCPCS: 71275; 74174; 80048; 80053; 80061; 83036; 84484; 85025; 85027; 85347; 85730; 93005; 93306; 93458; 93571; 99285; C1725; C1769; C1874; C1887; C1894; C9600; Q9967

== ENCOUNTER 2023-07-29 23:46 | Observation (INO) | payer MEDICARE, OTHER, SELFPAY ==
[2023-07-29 22:08] VITALS: BP 134/74
[2023-07-29 22:27] VITALS: BP 133/81
--- NOTE | 2023-07-29 22:35 | ED.GENMED ---
History of Present Illness
General
Chief Complaint: Chest Pain
Source: patient, records, family and previous hospital records
Exam Limitations: none
Time Seen by Provider: 07/29/23 22:21
Nursing documentation reviewed up to this point in time: agreed with
Travel History
Have you had any contact with someone who has COVID-19?: No
Do you have any symptoms of coronavirus? Fever > 100 degrees, chills, cough, shortness of breath, sore throat, loss of taste or smell, muscle aches, or headache?: No
History of Present Illness
History of Present Illness:
68-year-old male admitted a week ago with ACS status post stent apparently had some residual disease that was not stented, been compliant with his meds had an active day today doing some walking without a shopping check his blood pressure was 105/60
became home worked on some electrical device became very frustrated and had 20 minutes of pain in his chest into his jaw very similar episode angina week ago chest pain-free now
Past History
Past History
ED Past Medical History: Asthma (seasonal), CAD, HTN, Hypercholesterolemia, NIDDM (Diet controlled) and Other (Chronic diverticulitis, PNA, DVT, Renal calculus, )
ED Past Surgical History: Cardiac, Tonsilectomy and Other (Hernia repair); Negative Appendectomy, Bowel resection or Cholecystectomy
Social History
Tobacco: Former smoker
Alcohol: None
Drug: None
Personal:
Living: with family
Employment: Employed
Family History
Family History: Hypertension
Review of Systems
Review of Systems
All Other Systems: ROS reviewed and negative except as documented in HPI and ROS
Constitutional: Denies fever or fatigue
EENT: Reports no symptoms
Cardiac: Reports chest pain and other (Jaw pain)
Psychiatric: Reports anxiety
Phy Exam
Physical Exam
Physical Exam:
Physical Exam
General: no apparent distress, not acutely ill
Neck: No jaundice
Heart: s1/s2 regular rate and rhythm, no murmur. equal radial pulses.
Lungs: no acute respiratory distress. clear bilaterally
Abdomen: Not tender
Neuro: alert and oriented. no focal neurological deficits
Skin: no rash
Psychiatric: well kept. interactive and cooperative
Extremities: no edema.
Scores
Heart Score for Chest Pain Patients
STEMI patient?: No
History: Moderately Suspicious
ECG: Normal
Age: >/= 65 years
Risk Factors: >/= 3 Risk Factors or History of CAD
Troponin: </= Normal Limit
Heart Score for Chest Pain Patients: 5
Heart Score Risk: 20.3% MACE over next 6 weeks
Course
Orders/Labs/Results
Orders:
Orders
07/29/23 22:04
Electrocardiogram (*1) Urgent
Reason for Study: Chest Pain
EKG- Treatment ONCE
07/29/23 22:21
CMP [Comprehensive Metabolic Panel] Urgent
07/29/23 22:22
Complete Blood Count/With Diff Urgent
Troponin I Urgent
07/29/23 22:38
CR Chest Portable - 1 View Urgent
Comment:
Reason For Exam: cp
Reason Study Needs to be Portable: Patient Unstable
07/29/23 23:36
Admit/Transfer Patient As Directed
Co-Sign Provider:
Level of Care: Observation services
Assign to:: Telemetry
Physician / Group: odell
Diagnosis: chest pain
Reason for Telemetry: Chest Pain syndromes
Date to Stop Telemetry: 07/31/23
Time to Stop Telemetry: 11:00
07/29/23 23:37
Code Status As Directed
Resuscitation Status: Full Code
07/29/23 23:41
CARDIOLOGY CONSULT Routine
Consulting Provider: Jaylon Cisneros
Was physician already notified: No
Reason for consult: chest pain after pci
Consult Notification Routine
Specialty to Notify: Cardiology
07/31/23 11:00
DC Protocol for Telemetry ONCE
Abnormal Lab Results
07/29/23
22:22
MPV 11.7 H fL
(7.4-10.4)
Absolute Monos (auto) 0.9 H 10^3/uL
(0.1-0.6)
Monocytes % 16.4 H %
(1.7-9.3)
07/29/23 22:22
07/29/23 22:21
Vital Signs
Initial and Last Documented VS:
Initial Vital Signs
Temp Pulse Resp BP Pulse Ox
98.7 F 62 22 134/74 100
07/29/23 22:08 07/29/23 22:08 07/29/23 22:08 07/29/23 22:08 07/29/23 22:08
Last Documented Vital Signs
Temp Pulse Resp BP Pulse Ox
98.7 F 64 17 133/81 99
07/29/23 22:08 07/29/23 22:30 07/29/23 22:30 07/29/23 22:27 07/29/23 22:30
MDM/Problems Addressed
Differential Diagnosis Includes:
ACS anxiety patient chest pain-free now
MDM/Problems Addressed:
Chest pain
Chronic conditions affecting care: DM, HTN and CAD
Acute Exacerbation and/or Progression of Chronic Illness: DM, HTN and CAD
*Radiology
Radiology exam reviewed: preliminary read by ED provider
*Pulse Oximetry
Patient hypoxic: no
*EKG
Interpreted by ED Provider?: Yes
Interpretation: abnormal
Comparison EKG: no changes
Heart Rate: 78
Rate: normal
Rhythm: sinus
Ischemia: non-specific ST changes
*Planer Operator Interpretation
Rate: normal
Interpretation: normal
Heart Rate: 78
Rhythm: sinus
*Critical Care Note
Total Time (30-74mins, 75-104mins- exclusive of procedures): Not Applicable
Data Reviewed
Review of Other/Old Records Reveals: Labs, Records, Operative Reports and Discharge Summary
Source: patient, records and spouse
Update Note
Update Note:
Update patient chest pain-free now EKG noted prior records reviewed cardiac cath images reviewed certainly an anxiety component although he states pain is very similar to his angina a week ago when he ruled in for OR, I believe it would be prudent
to admit him to the hospital rule out OR consult cardiology etc.
ED Attending Note
-
Portions of this chart may have been created with voice recognition software.� Occasional wrong word or��sound alike� substitutions may have occurred due to the inherent limitations of voice recognition software.
Discharge Plan
Departure
Patient Disposition: Admit
Date of Disposition: 07/29/23
Time of Disposition: 23:14
Admit to: Telemetry
Presentation/result/management discussed w/ accepting MD/DO: Hospitalist
Patient with high blood pressure during this ER visit?: No
Condition: Good
Discharge Problem:
Chest pain
Prescriptions:
No Action
ascorbic acid (vitamin C) [Vitamin C] 500 MG tablet
1,000 mg PO QPM
multivitamin Tablet
1 tab PO DAILY
vitamin B complex Tablet Extended Release
1 tab PO QPM
zinc acetate 50 mg (zinc) Capsule
50 mg PO QPM
magnesium 250 mg Tablet
500 mg PO QPM
valsartan 40 mg tablet
40 mg PO HS
coenzyme Q10 [Co Q-10] 100 mg Capsule
100 mg PO QPM
EPA-DHA
2 g PO QPM
cholecalciferol (vitamin D3)
5 g PO QPM
atorvastatin 80 mg Tablet
80 mg PO HS Qty: 30 0RF
clopidogrel 75 mg Tablet
75 mg PO DAILY Qty: 90 0RF
aspirin [Children's Aspirin] 81 mg Tablet,Chewable
81 mg PO DAILY Qty: 30 0RF
Interventions
Interventions:
*Risk Screen - Suicide Last Done: 07/29/23 22:08
*Neglect/Abuse Screening Last Done: 07/29/23 22:08
ED- Cardiac Assessment Last Done: 07/29/23 22:29
Discharge Date and Time
Print Language: ROMANSH
[2023-07-29 22:38] LABS: % Basophils 1.1 % (0-2); % Eosinophils 2.6 % (0-6); % Immature Granulocytes 0.2 % (0-0.5); % Monocytes 16.4 % (1.7-9.3); % Neutrophils 50.7 % (42.2-75.2); Absolute Basophils 0.1 10^3/uL (0-0.2); Absolute Eosinophils 0.1 10^3/uL (0-0.7); Absolute Lymphocytes 1.6 10^3/uL (1.2-3.4); Absolute Monocytes 0.9 10^3/uL (0.1-0.6); Absolute Neutrophils 2.8 10^3/uL (1.4-6.5); Hematocrit 44.4 % (39.0-52.0); Hemoglobin 14.7 g/dL (13.0-18.0); Mean Corp Hgb Conc. 33.1 g/dL (33.0-37.0); Mean Corpuscular Hgb 29.6 pg (27.0-31.0); Mean Corpuscular Volume 89.5 fL (80.0-94.0); Mean Platelet Volume 11.7 fL (7.4-10.4); Nucleated Red Blood Cells % 0 % (-); Platelet Count 181 10^3/uL (130-400); Red Blood Cell Count 4.96 10^6/uL (4.70-6.10); White Blood Cell Count 5.4 10^3/uL (4.8-10.8)
[2023-07-29 22:59] LABS: ALT (SGPT) 37 U/L (0-50); AST (SGOT) 40 U/L (17-59); Albumin 4.5 g/dl (3.5-5.0); Alkaline Phosphatase 55 U/L (38-126); Blood Urea Nitrogen 15 mg/dl (9-20); Carbon Dioxide 26 mmol/L (22-30); Chloride 101 mmol/L (98-107); Glucose 90 mg/dl (70-99); Potassium 4.3 mmol/L (3.5-5.1); Sodium 136 mmol/L (135-145); Total Bilirubin 1.1 mg/dl (0.2-1.3); Total Protein 6.8 g/dl (6.3-8.2); eGFR > 60.00
[2023-07-29 23:00] VITALS: BP 112/68
--- NOTE | 2023-07-29 23:39 | HPS.HSE ---
Addendum entered and electronically signed by Rakesh Joe MD 07/29/23 23:42:
Pedal Pulses intact.
Original Note:
Family Physician
-
Family Physician: BARON TALAVERA PA-C
Chief Complaint
-
chest pain
History of Present Illness
68-year-old male past medical history of CAD, hypertension, hyperlipidemia, diabetes, presenting for chest pain while he was attaching an electronic device to a door today. Pain felt like a spasm in his chest and radiated to the left jaw. Pain is
similar to when he was recently admitted for NSTEMI however not as severe. He did feel nauseous when he came to the ER. Denies vomiting. He denies sweating, or shortness of breath.
He has been more physically active since the stent placement. He walked 12,000 steps today. Since the catheterization he reports that he gets aching pain in his bilateral thighs when he walks. Pain does not feel like muscle soreness. He also
initially had pain in his right groin but this had resolved. He also has chronic intermittent numbness and tingling of the bottom of his toes. He denies any history of peripheral arterial disease. He denies any back pain.
Patient was discharged 4 days ago after being admitted for chest pain secondary to NSTEMI. He underwent cardiac catheterization and had PCI to RPDA 80% lesion.
He is a former smoker. He denies alcohol use.
Medical History
Past Medical History
Past Medical History: Reports Other (CAD, hypertension, hyperlipidemia, diabetes)
Past Surgical History: Reports Other (Cardiac, Tonsilectomy and Other (Hernia repair); Negative Appendectomy, Bowel resection or Cholecystectomy)
Social History
Tobacco: Former Smoker
Alcohol: None
Drug: None
Family History
Family History: Not pertinent
Allergies / Home Medications
Allergies reflects when Allergies were last updated in [facility].
Home Medications with original date entered in [facility]
Allergy/Medication List:
Allergies
Allergy/AdvReac Type Severity Reaction Status Date / Time
lisinopril Allergy Shortness Verified 07/29/23 22:11
of Breath
tetanus toxoid, adsorbed Allergy Unknown Verified 07/29/23 22:11
Home Medications
ascorbic acid (vitamin C) 500 mg tablet (Vitamin C) 1,000 mg PO QPM Supplement 01/24/21
EPA-DHA 2 g PO QPM 07/23/23
cholecalciferol (vitamin D3) 5 g PO QPM Supplement 07/23/23
coenzyme Q10 100 mg capsule (Co Q-10) 100 mg PO QPM 07/23/23
magnesium 250 mg tablet 500 mg PO QPM Supplement 07/23/23
multivitamin 1 tab PO DAILY Supplement 07/23/23
valsartan 40 mg tablet 40 mg PO HS Blood Pressure 07/23/23
vitamin B complex 1 tab PO QPM Supplement 07/23/23
zinc acetate 50 mg (zinc) capsule 50 mg PO QPM Supplement 07/23/23
aspirin 81 mg chewable tablet (Children's Aspirin) 81 mg PO DAILY #30 tabs 07/25/23
atorvastatin 80 mg tablet 80 mg PO HS #30 tabs 07/25/23
clopidogrel 75 mg tablet 75 mg PO DAILY #90 tabs 07/25/23
Review of Systems
-
History Source: Patient
A 12 point ROS was completed and negative except as noted: Yes
Constitutional: Reports No Symptoms
EENT: Reports No Symptoms
Respiratory: Reports No Symptoms
Cardiac: Reports See HPI
Abdomen/GI: Reports No Symptoms
: Reports No Symptoms
Musculoskeletal: Reports No Symptoms
Skin: Reports No Symptoms
Neurological: Reports No Symptoms
Endocrine: Reports No Symptoms
Hematologic/Lymphatic: Reports No Symptoms
Psych: Reports No Symptoms
Physical Exam
Vital Signs
Vital Signs
Temp Pulse Resp BP Pulse Ox
98.7 F 64 17 133/81 99
07/29/23 22:08 07/29/23 22:30 07/29/23 22:30 07/29/23 22:27 07/29/23 22:30
Physical Exam
General: Well Developed, Well Nourished and No Apparent Distress
HEENT: NormoCephalic, Moist mucous membranes and Atraumatic
Respiratory: Clear
Cardiac: S1/S2 and Regular Rhythm; No Murmur or Rub
GI: Soft, Non Tender, Non Distended and Normal Bowel Sounds; No Organomegaly
Rectal: Deferred by Provider
Musculoskeletal: No Clubbing, No Cyanosis and No Edema
Skin: No Rash
Neuro: Nonfocal/grossly intact
Laboratory Results
-
07/29/23 22:22
07/29/23 22:21
Laboratory Results
Total Bilirubin 1.1 mg/dl (0.2-1.3) 07/29/23 22:21
AST 40 U/L (17-59) 07/29/23 22:21
ALT 37 U/L (0-50) 07/29/23 22:21
Alkaline Phosphatase 55 U/L (38-126) 07/29/23 22:21
Troponin I 0.020 ng/ml 07/29/23 22:22
Data Reviewed
-
Lab Data: Labs Reviewed by me
Old Records: Reviewed
Impression/Plan
-
IMPRESSION:
PLAN:
# Chest pain after PCI of RPDA 5 days ago secondary to NSTEMI
-EKG without abnormalities
-Currently without chest pain
-Troponin 0.02, continue to trend
-Continue aspirin, Plavix, statin,
-Cardiology consulted
# Bilateral lower extremity cramping possibly intermittent claudication from PAD
-Outpatient follow-up with vascular surgery
Essential hypertension
-Continue losartan
Hyperlipidemia
-Continue statin
Type 2 diabetes
-Diet controlled
Full code
DVT prophylaxis�heparin
Regular diet
[2023-07-30] VITALS: BP 115/63
[2023-07-30 01:00] VITALS: BP 123/60
[2023-07-30 02:00] VITALS: BP 120/68
[2023-07-30 02:44] VITALS: BMI 29.4
[2023-07-30 02:45] VITALS: BP 141/81
[2023-07-30 05:12] LABS: % Eosinophils 3.3 % (0-6); % Immature Granulocytes 0.2 % (0-0.5); % Lymphocytes 27.2 % (20.5-51.1); % Monocytes 16.4 % (1.7-9.3); % Neutrophils 51.9 % (42.2-75.2); Absolute Basophils 0.1 10^3/uL (0-0.2); Absolute Eosinophils 0.2 10^3/uL (0-0.7); Absolute Lymphocytes 1.4 10^3/uL (1.2-3.4); Absolute Monocytes 0.9 10^3/uL (0.1-0.6); Absolute Neutrophils 2.7 10^3/uL (1.4-6.5); Hematocrit 42.6 % (39.0-52.0); Hemoglobin 14.3 g/dL (13.0-18.0); Mean Corp Hgb Conc. 33.6 g/dL (33.0-37.0); Mean Corpuscular Hgb 29.8 pg (27.0-31.0); Mean Corpuscular Volume 88.8 fL (80.0-94.0); Mean Platelet Volume 11.8 fL (7.4-10.4); Nucleated Red Blood Cells % 0 % (-); Platelet Count 165 10^3/uL (130-400); White Blood Cell Count 5.2 10^3/uL (4.8-10.8)
[2023-07-30 05:39] LABS: ALT (SGPT) 36 U/L (0-50); AST (SGOT) 37 U/L (17-59); Albumin 4.2 g/dl (3.5-5.0); Alkaline Phosphatase 56 U/L (38-126); Blood Urea Nitrogen 13 mg/dl (9-20); Calcium 9.6 mg/dl (8.4-10.2); Carbon Dioxide 26 mmol/L (22-30); Chloride 103 mmol/L (98-107); Estimated Creatinine Clearance 98 ml/min; Glucose 82 mg/dl (70-99); Potassium 4.3 mmol/L (3.5-5.1); Sodium 137 mmol/L (135-145); Total Protein 6.5 g/dl (6.3-8.2); eGFR > 60.00
[2023-07-30 05:40] LABS: Troponin I 0.017 ng/ml
[2023-07-30 07:05] VITALS: BP 134/79
[2023-07-30] MEDS: PLAVIX 75 MG PO (08:51)
[2023-07-30] MEDS: LOW STRENGTH ASPIRIN 81 MG PO (08:51)
[2023-07-30] MEDS: HEPARIN 5000 UNITS SC (08:51)
[2023-07-30] MEDS: THERAGRAN 1 TABLET PO (08:51)
[2023-07-30 09:30] LABS: Troponin I 0.015 ng/ml
--- NOTE | 2023-07-30 10:30 | PTCARENOTE ---
Patient complaining of pain between his shoulder blades.He denied pain during my morning assessment.ECG was done and within normal limits.Cardiology here to see patient and ordered Nitroglycerine as needed.
--- NOTE | 2023-07-30 11:01 | CON.CAR ---
Addendum entered and electronically signed by Pasquale Latham MD 07/30/23 12:02:
I saw and examined the patient.
The HATCHERY HELPER's note was reviewed and I agree with the note.
Comment: Atypical chest symptoms after recent PCI for non-STEMI. I reviewed the angiograms with Dr. Sparrow. Results of PCI were excellent and there is no obstructive disease elsewhere. The patient has diffuse muscle aches that he attributes to
the increased statin dose. I have asked the patient to progressively ambulate. If he does well I think it is safe to discharge him with the following medication changes:
1. Stop valsartan
2. Begin amlodipine 5 mg daily. The patient understands this will take up to 10 days to have meaningful effect
3. Add sublingual nitroglycerin to be used as needed. Patient understands he should use this for for current symptoms and return to the ER for unstable symptoms or symptoms lasting more than 25 minutes
4. Stop atorvastatin
5. Begin rosuvastatin 20 mg daily. The patient likes this change.
6. Will arrange for stress echo in approximately 2 weeks.
7. He will have close cardiology follow-up.
-
-
Original Note:
Consultation
Consultation Request
Date/Time Consultation Requested: 07/29/2023 23:00
Date/Time Consultation Performed: 07/30/2023 10:30
Requesting Provider: Dr. Joe
Performing Provider: JANN Coffey for Dr. Latham
Reason for Consultation: Chest pain status post PCI
Medical History
-
Chief Complaint: Chest pain
History of Present Illness:
This patient is a 68-year-old male with hypertension, dyslipidemia, and type 2 diabetes mellitus (HgbA1c now normal after weight loss) and recent admission with coronary artery disease and PCI to [facility] 07/24/2023 presents with a chief complaint of
chest pain. He has been very active since he was discharged home. On the first day he walked 1 mile and has been gradually increasing his distance. He reports myalgias when he is on his walks. Most pacifically, he is having myalgia in his
thighs. He describes it as an ache. Yesterday, he walked 22,000 steps, which is much more than he had walked prior to hospitalization. Yesterday he had intermittent bouts of chest discomfort. He was working and was becoming very frustrated when
he had 20 minutes of chest pain that radiated into the left side of his jaw. This lasted at least 20 minutes. This was reminiscent of his NSTEMI admission. However, he did have intense diaphoresis with his NSTEMI which he did not get yesterday.
He reports medication and dietary adherence.
Past Medical History
Past Medical History: CAD, HTN and Hypercholesterolemia
Past Surgical History: Tonsilectomy
Social History
Tobacco: Former Smoker
Alcohol: None
Drug: None
Living: With Family
Employment: Employed
Family History
Family History: Reviewed & Not Pertinent
Allergies / Home Medications
Allergy/AdvReac Type Severity Reaction Status Date / Time
lisinopril Allergy Shortness Verified 07/29/23 22:11
of Breath
tetanus toxoid, adsorbed Allergy Unknown Verified 07/29/23 22:11
�Medication �Instructions �Recorded �Confirmed �Type
ascorbic acid (vitamin C) 500 mg 1,000 mg PO QPM Supplement 01/24/21 07/29/23 History
tablet (Vitamin C)
EPA-DHA 2 g PO QPM Supplement 07/23/23 07/29/23 History
cholecalciferol (vitamin D3) 5 g PO QPM Supplement 07/23/23 07/29/23 History
coenzyme Q10 100 mg capsule (Co 100 mg PO QPM Supplement 07/23/23 07/29/23 History
Q-10)
magnesium 250 mg tablet 500 mg PO QPM Supplement 07/23/23 07/29/23 History
multivitamin 1 tab PO DAILY Supplement 07/23/23 07/29/23 History
valsartan 40 mg tablet 40 mg PO HS Blood Pressure 07/23/23 07/29/23 History
vitamin B complex 1 tab PO QPM Supplement 07/23/23 07/29/23 History
zinc acetate 50 mg (zinc) capsule 50 mg PO QPM Supplement 07/23/23 07/29/23 History
aspirin 81 mg chewable tablet 81 mg PO DAILY #30 tabs 07/25/23 07/29/23 Rx
(Children's Aspirin)
clopidogrel 75 mg tablet 75 mg PO DAILY #90 tabs 07/25/23 07/29/23 Rx
atorvastatin 80 mg tablet 80 mg PO HS High Cholesterol 07/30/23 07/29/23 History
Review of Systems
-
History Source: Patient
All other systems: Negative unless noted
Respiratory: No Symptoms
Cardiac: Chest Pain
Musculoskeletal: Muscle Pain
Physical Exam
Vital Signs
Temp Pulse Resp BP Pulse Ox
97.8 F 55 16 134/79 100
07/30/23 07:05 07/30/23 07:05 07/30/23 07:05 07/30/23 07:05 07/30/23 07:05
Lab Results
07/30/23 04:16
07/30/23 04:16
Troponin I Cancelled 07/30/23 16:22
Physical Exam
General: Well Developed, Well Nourished, No Apparent Distress and Comfortable
HEENT: Normocephalic, Anicteric and Moist Mucous Membranes
Respiratory: Clear and Non Labored Respirations
Cardiac: S1/S2
Breast: Deferred by me
GI: Soft, Non Tender, Non Distended and Normal Bowel Sounds
Rectal: Deferred by Provider
Genito-urinary: No Costovertebral Tender
Musculoskeletal: No Clubbing, No Cyanosis and No Edema
Skin: Warm and Dry
Neuro: AO x 3
Hematologic/Lymphatic: No Lymphadenopathy
Psych: Calm
Impression / Plan
-
Chest pain
-Troponins remain flat
-EKG stable
CAD
-NSTEMI with PCI of mid RPDA and IFR of 60% mid LAD lesion demonstrating nonocclusive disease (IFR 0.96)
-Echo without regional wall motion abnormality and LVEF of 73%
-Continue DAPT with clopidogrel and aspirin
Hypertension, stop valsartan and start amlodipine 5 mg
Dyslipidemia
-LDL 65, atorvastatin increased from 20 mg to 80 mg last hospitalization
-He is endorsing myalgia, will transition to rosuvastatin 20 mg
Data Reviewed
-
EKG: Report Reviewed by me (Sinus bradycardia, rate 59)
Radiology: Report Reviewed by me (CXR: No evidence of active cardiopulmonary disease.)
Medical Tests (Nuc Med, Echo etc): Report Reviewed by me (Cardiac catheterization echocardiogram as above)
Labs: Labs Reviewed by me
Old Records: Reviewed
[2023-07-30 11:05] VITALS: BP 144/83
--- NOTE | 2023-07-30 11:07 | CM ---
Patient seen at bedside. Patient stated that he was just here at and is returning for the same type of chest pain. CM reviewed OBS/QUINONEZ form and patient reviewing form to complete. Patient stated that nothing has changed since his admission last
week. Patient still lives with his Jannette in a 2 story home with 1 step to enter and 13 steps to bed and bathroom. Patient confirmed that he is independent in driving and in all activities of daily living. Patient stated that he has no
adaptive devices. Patient PCP is Dr. Faust and he uses the [facility] in [place]. Patient plan is to go home with no needs, CM will continue to follow for discharge planning needs.
Plan; home with no needs vs home with VN; watch for any VN needs.
--- NOTE | 2023-07-30 11:59 | W.DS.TRANS ---
DC Summary - Onsite Case Manager
-
Discharge Instructions:
Discharge Diagnosis/Procedures Atypical chest pain.
CAD
Diet 2 Gram Sodium,Low Cholesterol
Activity No strenuous activity
Driving Restrictions As prior to admission
Bathing Restrictions None
Others Tests A stress echocardiogram should be completed in 2
weeks. This is being arranged by the
cardiology office.
Instructions:
Stand-Alone Forms:
Changes to Home Medications: Yes
Discharge Medications:
DC Medications w/original date entered in [facility]
ascorbic acid (vitamin C) 500 mg tablet (Vitamin C) 1,000 mg PO QPM Supplement 01/24/21
EPA-DHA 2 g PO QPM Supplement 07/23/23
cholecalciferol (vitamin D3) 5 g PO QPM Supplement 07/23/23
coenzyme Q10 100 mg capsule (Co Q-10) 100 mg PO QPM Supplement 07/23/23
magnesium 250 mg tablet 500 mg PO QPM Supplement 07/23/23
multivitamin 1 tab PO DAILY Supplement 07/23/23
vitamin B complex 1 tab PO QPM Supplement 07/23/23
zinc acetate 50 mg (zinc) capsule 50 mg PO QPM Supplement 07/23/23
aspirin 81 mg chewable tablet (Children's Aspirin) 81 mg PO DAILY #30 tabs 07/25/23
clopidogrel 75 mg tablet 75 mg PO DAILY #90 tabs 07/25/23
amlodipine 5 mg tablet 5 mg PO DAILY #30 tabs 07/30/23
nitroglycerin 0.4 mg sublingual tablet 0.4 mg sublingual [id number] PRN Chest pain #25 tabs 07/30/23
rosuvastatin 20 mg tablet 20 mg PO QPM #90 tabs 07/30/23
Home Medication Changes
Valsartan and Lipitor stopped
Amlodipine and Rosuvastatin initiated
Pending Results: No
--- NOTE | 2023-07-30 12:33 | PTCARENOTE ---
Rn flow rn geriatric- Jose texted dr. Mcgovern to transmit scripts to pharmacy.
== END 2023-07-30 12:54 | disposition home or self-care (01) ==
LOC: 2 SOUTH 23:46
PROVIDERS: ADMITTING PHYSICIAN Hospitalist; ATTENDING PHYSICIAN Internal Medicine; EMERGENCY PHYSICIAN Emergency Medicine; FAMILY PHYSICIAN Physician Assistant Medical; OTHER PHYSICIAN Internal Medicine Cardiovascular Disease
DX: R07.89 Other chest pain (principal); E11.9 Type 2 diabetes mellitus without complications; I10 Essential (primary) hypertension; I25.10 Atherosclerotic heart disease of native coronary artery without angina pectoris; M79.18 Myalgia, other site; E78.5 Hyperlipidemia, unspecified; E78.00 Pure hypercholesterolemia, unspecified; I21.4 Non-ST elevation (NSTEMI) myocardial infarction; J45.909 Unspecified asthma, uncomplicated; Z86.718 Personal history of other venous thrombosis and embolism; Z87.442 Personal history of urinary calculi; Z82.49 Family history of ischemic heart disease and other diseases of the circulatory system; Z87.891 Personal history of nicotine dependence; Z98.890 Other specified postprocedural states; Z90.49 Acquired absence of other specified parts of digestive tract; Z87.01 Personal history of pneumonia (recurrent); Z87.19 Personal history of other diseases of the digestive system; Z79.02 Long term (current) use of antithrombotics/antiplatelets; Z79.82 Long term (current) use of aspirin; Z88.8 Allergy status to other drugs, medicaments and biological substances; Z88.7 Allergy status to serum and vaccine; Z95.5 Presence of coronary angioplasty implant and graft
CPT/HCPCS: 71045; 80053; 84484; 85025; 93005; 99285; G0378

== ENCOUNTER → 2023-08-13 10:19 | Outpatient (REF) | payer MEDICARE, OTHER, SELFPAY | LOC: RCS 10:19 | PROVIDERS: ATTENDING PHYSICIAN Internal Medicine Cardiovascular Disease | DX: I25.10 Atherosclerotic heart disease of native coronary artery without angina pectoris (principal); Z95.5 Presence of coronary angioplasty implant and graft; R07.9 Chest pain, unspecified; R68.84 Jaw pain | CPT/HCPCS: 93017; 93350 ==

== ENCOUNTER 2023-09-05 08:33 | Outpatient (RCR) | payer MEDICARE, OTHER, SELFPAY | END 2023-09-05 23:59 | disposition home or self-care (01) | LOC: CRHB 08:33 | PROVIDERS: ATTENDING PHYSICIAN Internal Medicine Cardiovascular Disease | DX: I25.10 Atherosclerotic heart disease of native coronary artery without angina pectoris (principal); Z95.5 Presence of coronary angioplasty implant and graft; I25.2 Old myocardial infarction | CPT/HCPCS: G0422; G0423 ==

== ENCOUNTER 2023-10-07 10:30 | Outpatient (RCR) | payer MEDICARE, OTHER, SELFPAY | END 2023-10-07 23:59 | disposition home or self-care (01) | LOC: CRHB 10:30 | PROVIDERS: ATTENDING PHYSICIAN Internal Medicine Cardiovascular Disease | DX: I25.10 Atherosclerotic heart disease of native coronary artery without angina pectoris (principal); Z95.5 Presence of coronary angioplasty implant and graft; I25.2 Old myocardial infarction | CPT/HCPCS: G0422; G0423 ==

== ENCOUNTER 2023-11-08 10:29 | Outpatient (RCR) | payer MEDICARE, OTHER, SELFPAY | END 2023-11-08 23:59 | disposition home or self-care (01) | LOC: CRHB 10:29 | PROVIDERS: ATTENDING PHYSICIAN Internal Medicine Cardiovascular Disease | DX: I25.10 Atherosclerotic heart disease of native coronary artery without angina pectoris (principal); Z95.5 Presence of coronary angioplasty implant and graft; I25.2 Old myocardial infarction | CPT/HCPCS: G0422; G0423 ==

== ENCOUNTER 2023-11-20 13:23 | Outpatient (RCR) | payer MEDICARE, OTHER, SELFPAY | END 2023-11-20 23:59 | disposition home or self-care (01) | LOC: CRHB 13:23 | PROVIDERS: ATTENDING PHYSICIAN Internal Medicine Cardiovascular Disease | DX: I25.10 Atherosclerotic heart disease of native coronary artery without angina pectoris (principal); Z95.5 Presence of coronary angioplasty implant and graft; I25.2 Old myocardial infarction | CPT/HCPCS: G0422; G0423 ==

== ENCOUNTER → 2024-02-19 10:29 | Outpatient (REF) | payer MEDICARE, OTHER, SELFPAY | LOC: HWRAD 10:29 | PROVIDERS: ATTENDING PHYSICIAN Physician Assistant; FAMILY PHYSICIAN Physician Assistant Medical | DX: M25.552 Pain in left hip (principal) | CPT/HCPCS: 73502; 73552 ==

== ENCOUNTER 2024-06-20 10:47 | Emergency (ER) | payer MEDICARE, OTHER, SELFPAY ==
[2024-06-20] VITALS (7 sets, daily range): BP systolic 112–135; BP diastolic 65–81
[2024-06-20 11:20] LABS: Urine Albumin Negative (Neg - Trace); Urine Bilirubin Negative (Negative); Urine Character Clear (Clear); Urine Color Yellow; Urine Glucose Negative (Negative); Urine Ketone Negative (Negative); Urine Leukocyte Negative (Negative); Urine Nitrite Negative (Negative); Urine Occult Blood Negative (Negative); Urine Urobilinogen Negative (Neg - 1+)
[2024-06-20 11:28] LABS: % Basophils 0.4 % (0-2); % Eosinophils 1.4 % (0-6); % Immature Granulocytes 0.2 % (0-0.5); % Lymphocytes 12.8 % (20.5-51.1); % Monocytes 12.5 % (1.7-9.3); % Neutrophils 72.7 % (42.2-75.2); Absolute Eosinophils 0.1 10^3/uL (0-0.7); Absolute Lymphocytes 1.2 10^3/uL (1.2-3.4); Absolute Monocytes 1.2 10^3/uL (0.1-0.6); Hematocrit 40.4 % (39.0-52.0); Hemoglobin 13.6 g/dL (13.0-18.0); Mean Corp Hgb Conc. 33.7 g/dL (33.0-37.0); Mean Corpuscular Hgb 30.7 pg (27.0-31.0); Mean Corpuscular Volume 91.2 fL (80.0-94.0); Mean Platelet Volume 11.5 fL (7.4-10.4); Nucleated Red Blood Cells % 0 % (-); Platelet Count 161 10^3/uL (130-400); Red Blood Cell Count 4.43 10^6/uL (4.70-6.10); White Blood Cell Count 9.6 10^3/uL (4.8-10.8)
[2024-06-20 11:41] LABS: ALT (SGPT) 42 U/L (0-50); AST (SGOT) 30 U/L (17-59); Albumin 4.2 g/dl (3.5-5.0); Alkaline Phosphatase 58 U/L (38-126); Blood Urea Nitrogen 10 mg/dl (9-20); Calcium 9.7 mg/dl (8.4-10.2); Carbon Dioxide 29 mmol/L (22-30); Chloride 104 mmol/L (98-107); Glucose 97 mg/dl (70-99); Lipase 124 U/L (23-300); Potassium 4.3 mmol/L (3.5-5.1); Sodium 139 mmol/L (135-145); Total Bilirubin 1.1 mg/dl (0.2-1.3); Total Protein 6.5 g/dl (6.3-8.2); eGFR > 60.00
--- NOTE | 2024-06-20 11:49 | ED.GENMED ---
History of Present Illness
<Braeden Solitario, DO - Last Filed: 06/20/24 11:54>
General
Chief Complaint: Abdominal Pain
Source: patient and spouse
Exam Limitations: none
Time Seen by Provider: 06/20/24 11:34
Nursing documentation reviewed up to this point in time: agreed with
History of Present Illness
History of Present Illness:
69-year-old male presents emergency department due to abdominal pain began last night, and nausea this morning. This feels like his diverticulitis. He started taking his leftover Keflex and metronidazole from 3 years ago, because he thinks it is
diverticulitis.
Past History
<Braeden Solitario, DO - Last Filed: 06/20/24 11:54>
Past History
ED Past Medical History: Asthma (seasonal), CAD, HTN, Hypercholesterolemia, NIDDM (Diet controlled) and Other (Chronic diverticulitis, PNA, DVT, Renal calculus, )
ED Past Surgical History: Cardiac, Tonsilectomy and Other (Hernia repair); Negative Appendectomy, Bowel resection or Cholecystectomy
Social History
Tobacco: Former smoker
Alcohol: None
Drug: None
Personal:
Living: with family
Employment: Employed
Family History
Family History: Hypertension
Review of Systems
<Braeden Solitario, DO - Last Filed: 06/20/24 11:54>
Review of Systems
Allergies reviewed?: Yes
All Other Systems: Not applicable
Constitutional: Reports no symptoms
EENT: Reports no symptoms
Respiratory: Reports no symptoms
Cardiac: Reports no symptoms
ABD/GI: Reports abdominal pain and nausea
: Reports no symptoms
Musculoskeletal: Reports no symptoms
Skin: Reports no symptoms
Neurological: Reports no symptoms
Endocrine: Reports no symptoms
Hematologic/Lymphatic: Reports no symptoms
Psychiatric: Reports no symptoms
Phy Exam
<Braeden Solitario, DO - Last Filed: 06/20/24 11:54>
Physical Exam
Physical Exam:
Physical Exam
General: no apparent distress, not acutely ill
Neck: supple. no meningeal signs. normal posterior pharynx
Heart: s1/s2 regular rate and rhythm, no murmur. equal radial
pulses.
HEENT: Pupils equal round reactive to light, EOMI
Lungs: no acute respiratory distress. clear bilaterally
Abdomen: normal bowel sounds. Left lower quadrant tenderness, no rebound or guarding. no CVAT
Neuro: alert and oriented. no focal neurological deficits cranial nerves II through XII intact
Skin: no rash
Psychiatric: well kept. interactive and cooperative
Extremities: no edema. no calf tenderness. negative homans. good distal pulses
Course
<Braeden Solitario, DO - Last Filed: 06/20/24 11:54>
Orders/Labs/Results
Orders:
Orders
06/20/24 11:01
Urinalysis Reflex To Culture Urgent
Date Specimen was Collected: 06/20/24
Time Specimen was Collected: 10:56
06/20/24 11:21
Complete Blood Count/With Diff Urgent
Comprehensive Metabolic Panel Urgent
Lipase Urgent
06/20/24 11:48
CT Abd/pelvis W Iv Cont Urgent
Comment:
Reason For Exam: LLQ pain since yesterday
Abnormal Lab Results
06/20/24
11:21
RBC 4.43 L 10^6/uL
(4.70-6.10)
MPV 11.5 H fL
(7.4-10.4)
Absolute Neuts (auto) 7.0 H 10^3/uL
(1.4-6.5)
Absolute Monos (auto) 1.2 H 10^3/uL
(0.1-0.6)
Lymphocytes % 12.8 L %
(20.5-51.1)
Monocytes % 12.5 H %
(1.7-9.3)
Creatinine 0.6 L mg/dL
(0.7-1.3)
06/20/24 11:21
06/20/24 11:21
Vital Signs
Initial and Last Documented VS:
Initial Vital Signs
Temp Pulse Resp BP Pulse Ox
98.0 F 68 20 135/74 97
06/20/24 10:51 06/20/24 10:51 06/20/24 10:51 06/20/24 10:51 06/20/24 10:51
Last Documented Vital Signs
Temp Pulse Resp BP Pulse Ox
98.0 F 63 18 131/81 100
06/20/24 10:51 06/20/24 16:01 06/20/24 16:01 06/20/24 16:01 06/20/24 16:01
<Leeroy H. Velvet, DO - Last Filed: 06/20/24 22:24>
Orders/Labs/Results
Orders:
Orders
06/20/24 11:01
Urinalysis Reflex To Culture Urgent
Date Specimen was Collected: 06/20/24
Time Specimen was Collected: 10:56
06/20/24 11:21
Complete Blood Count/With Diff Urgent
Comprehensive Metabolic Panel Urgent
Lipase Urgent
06/20/24 11:48
CT Abd/pelvis W Iv Cont Urgent
Comment:
Reason For Exam: LLQ pain since yesterday
Abnormal Lab Results
06/20/24
11:21
RBC 4.43 L 10^6/uL
(4.70-6.10)
MPV 11.5 H fL
(7.4-10.4)
Absolute Neuts (auto) 7.0 H 10^3/uL
(1.4-6.5)
Absolute Monos (auto) 1.2 H 10^3/uL
(0.1-0.6)
Lymphocytes % 12.8 L %
(20.5-51.1)
Monocytes % 12.5 H %
(1.7-9.3)
Creatinine 0.6 L mg/dL
(0.7-1.3)
06/20/24 11:21
06/20/24 11:21
Vital Signs
Initial and Last Documented VS:
Initial Vital Signs
Temp Pulse Resp BP Pulse Ox
98.0 F 68 20 135/74 97
06/20/24 10:51 06/20/24 10:51 06/20/24 10:51 06/20/24 10:51 06/20/24 10:51
Last Documented Vital Signs
Temp Pulse Resp BP Pulse Ox
98.0 F 63 18 131/81 100
06/20/24 10:51 06/20/24 16:01 06/20/24 16:01 06/20/24 16:01 06/20/24 16:01
<Leeroy Verdin DO - Last Filed: 06/20/24 22:24>
*Critical Care Note
Total Time (30-74mins, 75-104mins- exclusive of procedures): Not Applicable
<Leeroy Verdin DO - Last Filed: 06/20/24 22:24>
Update Note
Update Note:
Received signout on patient at approximately 2 PM. Plan at signout was to review CT of the abdomen pelvis and up appropriately disposition from there.
CT scan shows changes consistent with mild uncomplicated diverticulitis.
Patient notified of CT report. His exam shows some mild left lower quadrant tenderness but no rebound. We will start Augmentin. Follow-up with gastroenterology as an outpatient.
ED Attending Note
<Braeden D. Goodroad, DO - Last Filed: 06/20/24 11:54>
-
Portions of this chart may have been created with voice recognition software.� Occasional wrong word or��sound alike� substitutions may have occurred due to the inherent limitations of voice recognition software.
Discharge Plan
Departure
Patient Disposition: Home (Routine Discharge)
Date of Disposition: 06/20/24
Time of Disposition: 15:52
Patient with high blood pressure during this ER visit?: No
Condition: Good
Discharge Problem:
Acute abdomen, Diverticulitis large intestine
Instructions: Diverticulitis (DC)
Prescriptions:
New
amoxicillin-pot clavulanate 875-125 mg tablet
1 tab PO BID Qty: 14 0RF
No Action
ascorbic acid (vitamin C) [Vitamin C] 500 MG tablet
1,000 mg PO QPM
multivitamin Tablet
1 tab PO DAILY
vitamin B complex Tablet Extended Release
1 tab PO QPM
zinc acetate 50 mg (zinc) Capsule
50 mg PO QPM
magnesium 250 mg Tablet
500 mg PO QPM
coenzyme Q10 [Co Q-10] 100 mg Capsule
100 mg PO QPM
EPA-DHA
2 g PO QPM
cholecalciferol (vitamin D3)
5 g PO QPM
clopidogrel 75 mg Tablet
75 mg PO DAILY Qty: 90 0RF
aspirin [Children's Aspirin] 81 mg Tablet,Chewable
81 mg PO DAILY Qty: 30 0RF
amlodipine 5 mg Tablet
5 mg PO DAILY Qty: 30 0RF
nitroglycerin 0.4 mg Tablet, Sublingual
0.4 mg sublingual [id number] PRN (Reason: Chest pain) Qty: 25 0RF
rosuvastatin 20 mg Tablet
20 mg PO QPM Qty: 90 0RF
Referrals:
Sergey Faust PA-C [Family Provider] -
Interventions
Interventions:
*Risk Screen - Suicide Last Done: 06/20/24 10:51
*General Assessment Last Done: 06/20/24 10:51
*Neglect/Abuse Screening Last Done: 06/20/24 10:51
*ED- Fall Risk Assessment Last Done: 06/20/24 11:23
*ED COVID-19 Vaccine History Last Done: 06/20/24 11:11
*Nursing Disposition Last Done: 06/20/24 16:24
[id number] Assessment Last Done: 06/20/24 11:23
Discharge Date and Time
Discharge Date/Time: 06/20/24 16:15
Print Language: TURKISH
== END 2024-06-20 16:15 | disposition home or self-care (01) ==
LOC: EMR 10:47
PROVIDERS: EMERGENCY PHYSICIAN Emergency Medicine; FAMILY PHYSICIAN Physician Assistant Medical
DX: K57.32 Diverticulitis of large intestine without perforation or abscess without bleeding (principal); J45.909 Unspecified asthma, uncomplicated; I25.10 Atherosclerotic heart disease of native coronary artery without angina pectoris; I10 Essential (primary) hypertension; E78.00 Pure hypercholesterolemia, unspecified; E11.9 Type 2 diabetes mellitus without complications; Z82.49 Family history of ischemic heart disease and other diseases of the circulatory system; Z86.718 Personal history of other venous thrombosis and embolism; Z87.442 Personal history of urinary calculi; Z87.891 Personal history of nicotine dependence; Z90.49 Acquired absence of other specified parts of digestive tract
CPT/HCPCS: 99284; 74177; 80053; 81003; 83690; 85025; Q9967

== ENCOUNTER → 2024-07-28 10:43 | Outpatient (REF) | payer MEDICARE, OTHER, SELFPAY | LOC: HWRAD 10:43 | PROVIDERS: ATTENDING PHYSICIAN Physician Assistant Medical | DX: K57.32 Diverticulitis of large intestine without perforation or abscess without bleeding (principal) | CPT/HCPCS: 74177; Q9967 ==

== ENCOUNTER 2024-09-12 06:36 | Emergency (ER) | payer MEDICARE, OTHER, SELFPAY ==
[2024-09-12 06:38] VITALS: BP 135/86
[2024-09-12 07:05] VITALS: BMI 27.1
[2024-09-12 07:30] LABS: Hematocrit 43.4 % (39.0-52.0); Hemoglobin 14.6 g/dL (13.0-18.0); Mean Corp Hgb Conc. 33.6 g/dL (33.0-37.0); Mean Corpuscular Volume 91.2 fL (80.0-94.0); Nucleated Red Blood Cells % 0 % (-); Platelet Count 169 10^3/uL (130-400); Red Cell Dist. Width 13.2 % (11.5-14.5)
--- NOTE | 2024-09-12 07:31 | ED.GENMED ---
History of Present Illness
General
Chief Complaint: Abdominal Pain
Time Seen by Provider: 09/12/24 07:01
History of Present Illness
History of Present Illness:
69-year-old male presents the emergency department for evaluation of periumbilical pain beginning yesterday. States the pain feels similar to his prior bouts of diverticulitis however not in a typical location. Began immediately after eating
[place] food yesterday. Crampy in nature, feels constipated. Denies vomiting, denies fevers or chills. Prior history of bilateral inguinal hernia repair
Past History
Past History
ED Past Medical History: Asthma (seasonal), CAD, HTN, Hypercholesterolemia, NIDDM (Diet controlled) and Other (Chronic diverticulitis, PNA, DVT, Renal calculus, )
ED Past Surgical History: Cardiac, Tonsilectomy and Other (Hernia repair); Negative Appendectomy, Bowel resection or Cholecystectomy
Social History
Tobacco: Former smoker
Alcohol: None
Drug: None
Personal:
Living: with family
Employment: Employed
Family History
Family History: Hypertension
Review of Systems
Review of Systems
Allergies reviewed?: Yes
All Other Systems: ROS reviewed and negative except as documented in HPI and ROS
Phy Exam
Physical Exam
Physical Exam:
GEN: Well appearing, NAD, WDWN
HEENT: Oral mucosa moist, no scleral icterus
Cardiac: Regular rate
Lung: No respiratory distress, no tachypnea
Abdomen: Soft, focal right upper quadrant tenderness with increased inspiratory pain, no rigidity, vague lower abdominal tenderness as well
MSK: No gross deformity or injuries
Skin: Good color, no pallor or jaundice, no rashes
Neuro: AO x3, moves all extremities freely
Psych: Calm, cooperative
Course
Orders/Labs/Results
Orders:
Orders
09/12/24 07:14
CMP [Comprehensive Metabolic Panel] Urgent
Complete Blood Count/With Diff Urgent
Lipase Urgent
Comment: ADD ON
09/12/24 07:24
US Abdomen Complete/Upper Urgent
Comment:
Reason For Exam: RUQ pain
09/12/24 07:25
Add On- LAB Urgent
Tests Added?: lipase
Abnormal Lab Results
09/12/24
07:14
MPV 11.1 H fL
(7.4-10.4)
Absolute Monos (auto) 1.0 H 10^3/uL
(0.1-0.6)
Lymphocytes % 13.4 L %
(20.5-51.1)
Monocytes % 11.4 H %
(1.7-9.3)
Creatinine 0.6 L mg/dL
(0.7-1.3)
09/12/24 07:14
09/12/24 07:14
Vital Signs
Initial and Last Documented VS:
Initial Vital Signs
Temp Pulse Resp BP Pulse Ox
97.7 F 62 18 135/86 99
09/12/24 06:38 09/12/24 06:38 09/12/24 06:38 09/12/24 06:38 09/12/24 06:38
Last Documented Vital Signs
Temp Pulse Resp BP Pulse Ox
97.7 F 60 18 130/80 99
09/12/24 06:38 09/12/24 10:00 09/12/24 10:00 09/12/24 10:00 09/12/24 10:00
MDM/Problems Addressed
MDM/Problems Addressed:
Patient's pain is interestingly predominantly right upper quadrant however ultrasound shows no evidence for cholecystitis. His labs are reassuring, do not feel that CT would provide additional benefit at this point given his nonperitoneal exam thus
we will treat empirically as atypical diverticulitis but with close follow-up if symptoms worsen
*Pulse Oximetry
SaO2: 99
Oxygen Mode of Delivery: Room air
Patient hypoxic: no
*Critical Care Note
Total Time (30-74mins, 75-104mins- exclusive of procedures): Not Applicable
ED Attending Note
-
Portions of this chart may have been created with voice recognition software.� Occasional wrong word or��sound alike� substitutions may have occurred due to the inherent limitations of voice recognition software.
Discharge Plan
Departure
Patient Disposition: Home (Routine Discharge)
Date of Disposition: 09/12/24
Time of Disposition: 09:36
Patient with high blood pressure during this ER visit?: No
Discharge Problem:
Diverticulitis
Instructions: Clear Liquid Diet, Diverticulitis (DC)
Prescriptions:
New
ciprofloxacin HCl 500 mg tablet
500 mg PO BID 10 Days Qty: 20 0RF
metronidazole 500 mg tablet
500 mg PO BID 10 Days Qty: 20 0RF
No Action
ascorbic acid (vitamin C) [Vitamin C] 500 MG tablet
1,000 mg PO QPM
multivitamin Tablet
1 tab PO DAILY
vitamin B complex Tablet Extended Release
1 tab PO QPM
zinc acetate 50 mg (zinc) Capsule
50 mg PO QPM
magnesium 250 mg Tablet
500 mg PO QPM
coenzyme Q10 [Co Q-10] 100 mg Capsule
100 mg PO QPM
EPA-DHA
2 g PO QPM
cholecalciferol (vitamin D3)
5 g PO QPM
clopidogrel 75 mg Tablet
75 mg PO DAILY Qty: 90 0RF
aspirin [Children's Aspirin] 81 mg Tablet,Chewable
81 mg PO DAILY Qty: 30 0RF
amlodipine 5 mg Tablet
5 mg PO DAILY Qty: 30 0RF
nitroglycerin 0.4 mg Tablet, Sublingual
0.4 mg sublingual [id number] PRN (Reason: Chest pain) Qty: 25 0RF
rosuvastatin 20 mg Tablet
20 mg PO QPM Qty: 90 0RF
amoxicillin-pot clavulanate 875-125 mg tablet
1 tab PO BID Qty: 14 0RF
Referrals:
Sergey Faust PA-C [Family Provider]
Activity Restrictions/Additional Instructions:
Return if your symptoms provide next 3 to 5 days
Interventions
Interventions:
*Risk Screen - Suicide Last Done: 09/12/24 06:38
*General Assessment Last Done: 09/12/24 06:38
*Neglect/Abuse Screening Last Done: 09/12/24 06:38
*ED- Fall Risk Assessment Last Done: 09/12/24 06:38
*ED COVID-19 Vaccine History Last Done: 09/12/24 06:38
IC-Nblnal-Glyxyygpxn Assessment Last Done: 09/12/24 07:05
Discharge Date and Time
Print Language: BELARUSIAN
[2024-09-12 08:19] LABS: ALT (SGPT) 37 U/L (0-50); AST (SGOT) 29 U/L (17-59); Albumin 4.5 g/dl (3.5-5.0); Alkaline Phosphatase 44 U/L (38-126); Blood Urea Nitrogen 18 mg/dl (9-20); Calcium 9.6 mg/dl (8.4-10.2); Carbon Dioxide 27 mmol/L (22-30); Chloride 107 mmol/L (98-107); Estimated Creatinine Clearance 112 ml/min; Glucose 99 mg/dl (70-99); Lipase 106 U/L (23-300); Potassium 4.6 mmol/L (3.5-5.1); Sodium 140 mmol/L (135-145); Total Protein 7.0 g/dl (6.3-8.2); eGFR > 60.00
[2024-09-12 10:00] VITALS: BP 130/80
== END 2024-09-12 09:37 | disposition home or self-care (01) ==
LOC: EMR 06:36
PROVIDERS: Physician Assistant; EMERGENCY PHYSICIAN Student in an Organized Health Care Education/Training Program; FAMILY PHYSICIAN Physician Assistant Medical
DX: K57.92 Diverticulitis of intestine, part unspecified, without perforation or abscess without bleeding (principal); E11.9 Type 2 diabetes mellitus without complications; E78.00 Pure hypercholesterolemia, unspecified; I10 Essential (primary) hypertension; I25.10 Atherosclerotic heart disease of native coronary artery without angina pectoris; J45.909 Unspecified asthma, uncomplicated; Z86.718 Personal history of other venous thrombosis and embolism; Z87.442 Personal history of urinary calculi; Z87.891 Personal history of nicotine dependence
CPT/HCPCS: 99284; 76700; 80053; 83690; 85025

== ENCOUNTER 2024-09-15 21:08 | Emergency (ER) | payer MEDICARE, OTHER, SELFPAY ==
[2024-09-15 21:11] VITALS: BP 147/84
--- NOTE | 2024-09-16 01:14 | ED.GENMED ---
History of Present Illness
General
Chief Complaint: Musculo-Skeletal Complaint
Source: patient
Exam Limitations: none
Time Seen by Provider: 09/16/24 01:14
Nursing documentation reviewed up to this point in time: agreed with
History of Present Illness
History of Present Illness:
Note:
CHIEF COMPLAINT(S)
Swelling on the arm following activity, specifically after hitting a punching bag.
HISTORY OF PRESENT ILLNESS
The patient is a 69-year-old male with a history of DVT, hypertension, hyperlipidemia, coronary artery disease, diabetes who presents to the emergency department today with concerns of swelling to his right anterior forearm. Patient reports that he
was exercising at his house and using a punching bed when he went to go punch the bag really hard and he hit the front surface of his arm onto the bag. Patient reports that he felt some sharp pain at the time. Later after he was resting, he looked
down and noticed that there are some swelling and bruising noted to his arm. Patient reports that he is concerned that this could be a blood clot. Patient reports that the pain is gotten better. Patient reports that the area of swelling has gone
down with ice. He is comfortable currently. He denies numbness or tingling, swelling, chest pain, shortness of breath.
MEDICATIONS
The patient is currently taking Plavix and aspirin
PHYSICAL EXAM
- Nursing notes reviewed and vital signs reviewed.
General: Patient is well appearing and in no acute distress; non-toxic
Skin: Warm and dry, 2 cm x 4 cm area of swelling with overlying ecchymosis consistent with a hematoma
Head: Normocephalic, atraumatic
Eyes: Sclera non-icteric. EOMs intact.
Cardiac: Regular rate and rhythm, no murmurs
Peripheral Vascular: No lower extremity swelling or edema. 2+ radial pulses bilaterally.
Pulm: Normal respiratory effort, no wheezes, rales, rhonchi
Musculoskeletal: No tenderness palpation of the right upper extremity. No palpable bony deformity.
Neuro: CN II-XII intact, no focal neurologic deficits. Sensation intact.
Psychiatric: Appropriate mood and affect.
PROBLEM LIST
Acute:
- Hematoma on the arm
Chronic:
- History of blood clots
PLAN
- Apply an JUAN wrap for compression to the affected area to aid in reducing the swelling.
- Advise the patient to keep the arm elevated and to continue applying ice.
- Instruct the patient to return if symptoms do not resolve in a few days or if new symptoms such as deep pain, chest pain, or shortness of breath occur.
- Monitor for potential complications given the patients history and medication use.
DIFFERENTIAL DIAGNOSIS
The Differential Diagnosis includes, in no particular order and is not limited to:
1. Hematoma
2. Superficial thrombophlebitis
3. Deep vein thrombosis (though less likely)
4. Cyst
5. Muscle strain or tear
6. Soft tissue infection
7. Lymphedema
8. Lipoma
9. Hemangioma
10. Pseudoxanthoma elasticum (less common, but related to skin and connective tissue changes)
CHART REVIEW
- Reviewed ER physician documentation from 09/12/2024 patient seen for diverticulitis, patient had stents done in November 2019 for, reviewed discharge summary from 07/30/2023 patient seen for chest pain and shortness of breath
MDM/DISPOSITION
This is a 69-year-old male who presents emergency department today with concerns of right arm pain and swelling following hitting his arm on a punching bag. Patient is concerned that he may have a blood clot. Patient is currently pain-free and
reports that the swelling is gone down with ice and rest. On physical exam, he has an area of ecchymosis and swelling consistent with a hematoma. This is following blunt trauma and has been improving. Do not suspect DVT as patient has no pain
going up the arm, no asymmetric swelling of the upper extremity. Advised patient to continue to do ice and use Juan wrap's at home and elevate the extremity. Strict return precautions discussed. Patient stable for discharge.
Past History
Past History
ED Past Medical History: Asthma (seasonal), CAD, HTN, Hypercholesterolemia, NIDDM (Diet controlled) and Other (Chronic diverticulitis, PNA, DVT, Renal calculus, )
ED Past Surgical History: Cardiac, Tonsilectomy and Other (Hernia repair); Negative Appendectomy, Bowel resection or Cholecystectomy
Social History
Tobacco: Former smoker
Alcohol: None
Drug: None
Personal:
Living: with family
Employment: Employed
Family History
Family History: Hypertension
Phy Exam
Physical Exam
Physical Exam:
see hpi
Course
Vital Signs
Initial and Last Documented VS:
Initial Vital Signs
Temp Pulse Resp BP Pulse Ox
97.8 F 61 18 147/84 99
09/15/24 21:11 09/15/24 21:11 09/15/24 21:11 09/15/24 21:11 09/15/24 21:11
Last Documented Vital Signs
Temp Pulse Resp BP Pulse Ox
97.8 F 64 18 127/80 96
09/15/24 21:11 09/16/24 01:34 09/16/24 01:34 09/16/24 01:34 09/16/24 01:34
*Pulse Oximetry
SaO2: 99
Oxygen Mode of Delivery: Room air
Patient hypoxic: no
*Critical Care Note
Total Time (30-74mins, 75-104mins- exclusive of procedures): Not Applicable
ED Attending Note
-
Portions of this chart may have been created with voice recognition software.� Occasional wrong word or��sound alike� substitutions may have occurred due to the inherent limitations of voice recognition software.
Discharge Plan
Departure
Patient Disposition: Home (Routine Discharge)
Date of Disposition: 09/16/24
Time of Disposition: 01:29
Patient with high blood pressure during this ER visit?: Yes
Condition: Good
Discharge Problem:
Hematoma of right forearm
Instructions: BLOOD PRESSURE, Hematoma, RICE Therapy
Prescriptions:
No Action
ascorbic acid (vitamin C) [Vitamin C] 500 MG tablet
1,000 mg PO QPM
multivitamin Tablet
1 tab PO DAILY
vitamin B complex Tablet Extended Release
1 tab PO QPM
zinc acetate 50 mg (zinc) Capsule
50 mg PO QPM
magnesium 250 mg Tablet
500 mg PO QPM
coenzyme Q10 [Co Q-10] 100 mg Capsule
100 mg PO QPM
EPA-DHA
2 g PO QPM
cholecalciferol (vitamin D3)
5 g PO QPM
clopidogrel 75 mg Tablet
75 mg PO DAILY Qty: 90 0RF
aspirin [Children's Aspirin] 81 mg Tablet,Chewable
81 mg PO DAILY Qty: 30 0RF
amlodipine 5 mg Tablet
5 mg PO DAILY Qty: 30 0RF
nitroglycerin 0.4 mg Tablet, Sublingual
0.4 mg sublingual [id number] PRN (Reason: Chest pain) Qty: 25 0RF
rosuvastatin 20 mg Tablet
20 mg PO QPM Qty: 90 0RF
amoxicillin-pot clavulanate 875-125 mg tablet
1 tab PO BID Qty: 14 0RF
ciprofloxacin HCl 500 mg tablet
500 mg PO BID 10 Days Qty: 20 0RF
metronidazole 500 mg tablet
500 mg PO BID 10 Days Qty: 20 0RF
Referrals:
Sergey Faust PA-C [Family Provider]
Activity Restrictions/Additional Instructions:
As discussed, you have a hematoma on your forearm. Please keep your arm elevated at home. You can also apply an Juan wrap as needed. You can continue to apply ice.
PLEASE RETURN TO THE EMERGENCY DEPARTMENT SHOULD YOU DEVELOP SWELLING IN YOUR ARM, CHEST PAIN, SHORTNESS OF BREATH, DECREASED SENSATION, INCREASING PAIN, FEVERS OR CHILLS, SPREADING OF THE REDNESS OR SWELLING, OR ANY OTHER SIGNS OR SYMPTOMS
WORRISOME TO YOU.
Interventions
Interventions:
*Risk Screen - Suicide Last Done: 09/15/24 21:11
*General Assessment Last Done: 09/15/24 23:05
*Neglect/Abuse Screening Last Done: 09/15/24 21:11
*ED- Fall Risk Assessment Last Done: 09/15/24 23:05
*ED COVID-19 Vaccine History Last Done: 09/15/24 23:05
*Nursing Disposition Last Done: 09/16/24 01:34
ED-Musculoskeletal Assessment Last Done: 09/15/24 22:57
Discharge Date and Time
Discharge Date/Time: 09/16/24 01:34
Print Language: WELSH
[2024-09-16 01:34] VITALS: BP 127/80
== END 2024-09-16 01:34 | disposition home or self-care (01) ==
LOC: EMR 21:08
PROVIDERS: EMERGENCY PHYSICIAN Emergency Medicine; FAMILY PHYSICIAN Physician Assistant Medical
DX: S50.11XA Contusion of right forearm, initial encounter (principal); W22.8XXA Striking against or struck by other objects, initial encounter; Y93.B9 Activity, other involving muscle strengthening exercises; E11.9 Type 2 diabetes mellitus without complications; E78.00 Pure hypercholesterolemia, unspecified; I10 Essential (primary) hypertension; I25.10 Atherosclerotic heart disease of native coronary artery without angina pectoris; J45.909 Unspecified asthma, uncomplicated; Z86.718 Personal history of other venous thrombosis and embolism; Z87.891 Personal history of nicotine dependence
CPT/HCPCS: 99282

== ENCOUNTER → 2024-09-16 14:40 | Outpatient (REF) | payer MEDICARE, OTHER, SELFPAY | LOC: HWRAD 14:40 | PROVIDERS: ATTENDING PHYSICIAN Physician Assistant Medical | DX: M25.531 Pain in right wrist (principal) | CPT/HCPCS: 73100 ==

== ENCOUNTER 2024-10-01 04:44 | Day surgery (SDC) | payer MEDICARE, OTHER, SELFPAY ==
[2024-09-30 23:14] VITALS: BP 132/72
[2024-09-30 23:28] LABS: Hematocrit 39.6 % (39.0-52.0); Hemoglobin 13.5 g/dL (13.0-18.0); Mean Corp Hgb Conc. 34.1 g/dL (33.0-37.0); Mean Corpuscular Volume 88.8 fL (80.0-94.0); Nucleated Red Blood Cells % 0 % (-); Platelet Count 216 10^3/uL (130-400); Red Cell Dist. Width 12.5 % (11.5-14.5)
[2024-10-01] VITALS (23 sets, daily range): BP systolic 93–145; BP diastolic 59–85; BMI 26.2; BMI 26.0
[2024-10-01 00:02] LABS: Troponin I < 0.012 ng/ml
[2024-10-01 00:11] LABS: ALT (SGPT) 37 U/L (0-50); AST (SGOT) 31 U/L (17-59); Albumin 4.3 g/dl (3.5-5.0); Alkaline Phosphatase 48 U/L (38-126); Blood Urea Nitrogen 14 mg/dl (9-20); Calcium 9.9 mg/dl (8.4-10.2); Carbon Dioxide 28 mmol/L (22-30); Chloride 102 mmol/L (98-107); Glucose 95 mg/dl (70-99); Potassium 4.4 mmol/L (3.5-5.1); Sodium 136 mmol/L (135-145); Total Protein 6.9 g/dl (6.3-8.2); eGFR > 60.00
[2024-10-01 02:59] LABS: Troponin I 0.044 ng/ml
[2024-10-01] MEDS: ASPIRIN 325 MG PO (03:27)
--- NOTE | 2024-10-01 03:51 | ED.GENMED ---
History of Present Illness
General
Chief Complaint: Chest Pain
Source: patient and spouse
Exam Limitations: none
Time Seen by Provider: 10/01/24 01:49
Nursing documentation reviewed up to this point in time: agreed with
History of Present Illness
History of Present Illness:
69-year-old male presenting to the emergency department today with concerns of chest pain 30 minutes prior to arrival took 2 nitro at home with improvement of symptoms. Denies any shortness of breath nausea vomiting fevers. History of coronary
artery disease did have a stent last year.
Past History
Past History
ED Past Medical History: Asthma (seasonal), CAD, HTN, Hypercholesterolemia, NIDDM (Diet controlled) and Other (Chronic diverticulitis, PNA, DVT, Renal calculus, )
ED Past Surgical History: Cardiac, Tonsilectomy and Other (Hernia repair); Negative Appendectomy, Bowel resection or Cholecystectomy
Social History
Tobacco: Former smoker
Alcohol: None
Drug: None
Personal:
Living: with family
Employment: Employed
Family History
Family History: Hypertension
Review of Systems
Review of Systems
Allergies reviewed?: Yes
All Other Systems: ROS reviewed and negative except as documented in HPI and ROS
Phy Exam
Physical Exam
Physical Exam:
GENERAL: Alert , in no apparent distress
EYE: pupils equal and reactive
NECK: Supple, no significant adenopathy.
ENT: o/p clr, mmm.
CARDIAC: Regular rate and rhythm .
LUNGS: Clear breath sounds bilaterally, no acute respiratory distress, no wheezes/rales/rhonchi
ABDOMEN: Soft, without focal tenderness, no r/g, no cvat
NEUROLOGICAL: Alert and oriented, no focal neuro deficits
SKIN: Warm and dry, skin intact.
MUSCULOSKELETAL: No edema, well perfused.
PSYCH: Normal and appropriate interaction.
Scores
Heart Score for Chest Pain Patients
STEMI patient?: No
History: Moderately Suspicious
ECG: Nonspecific Repolarization
Age: >/= 65 years
Risk Factors: >/= 3 Risk Factors or History of CAD
Troponin: >1 - <3 x Normal Limit
Heart Score for Chest Pain Patients: 7
Heart Score Risk: 72.7 % MACE over next 6 weeks
Course
Orders/Labs/Results
Orders:
Orders
09/30/24 23:11
Electrocardiogram (*1) Urgent
Reason for Study: Chest Pain
EKG- Treatment ONCE
09/30/24 23:20
Complete Blood Count/With Diff Urgent
Comprehensive Metabolic Panel Urgent
Troponin I Urgent
10/01/24 01:53
EKG- Treatment ONCE
Chest [CR Chest - 2 Views ] Urgent
Comment:
Reason For Exam: cp
10/01/24 02:05
Troponin I Urgent
10/01/24 02:10
Electrocardiogram (*1) Urgent
Reason for Study: Chest Pain
10/01/24 03:18
Aspirin 325 mg PO NOW STA
10/01/24 03:50
Heparin 4,000 units IV NOW STA
Nursing to Place Non Medication Order As Directed
Physician Order: PTT 6 hours after initial start of Heparin infusion
10/01/24 04:00
Heparin [id number] Units/250 ml 25,000 units in 250 ml IV PER PROTOCOL
Weight to be used for heparin protocol in kilograms (kg):: 78
Protocol:: Cardiac Tx/Acute Coronary
PTT Goal Range to be used:: PTT 73 to 111 seconds
Order type:: Initial
INITIAL Infusion Dose (UNITS/KG/hr) & then follow protocol:: 15 units/kg/hr
Infusion Dose in UNITS/hr & then follow protocol (UNITS/hr):: 1,150
INFUSION RATE in mL/hr & then follow protocol (mL/hr):: 11.5
PTT less than or equal to 64 seconds:: Increase rate by 200 units/hr (+ 2 mL/hr)
PTT 64.1 to 72.9 seconds:: Increase rate by 100 units/hr (+ 1 mL/hr)
PTT 73 to 111 seconds:: Target Range. No change in rate.
PTT 111.1 to 130.9 seconds:: Decrease rate by 100 units/hr (- 1 mL/hr)
PTT 131 to 199.9 seconds:: HOLD for 1 hr. Then decrease rate by 200 units/hr (- 2 mL/hr)
PTT greater than or equal to 200 seconds:: HOLD for 2 hrs & Notify Provider. Then decrease by 200 units/hr (-
2 mL/hr)
Lab follow-up:: Each change, PTT q6h until 2 consecutive are therapeutic. Then PTT
daily.
10/01/24 04:02
Admit/Transfer Patient As Directed
Co-Sign Provider:
Level of Care: Observation services
Assign to:: IVU
Physician / Group: pricila
Diagnosis: NSTEMI
10/01/24 04:03
PRN Pain Medication Management As Directed
May give lesser potent ordered pain med per pt: Yes
preference::
Protocol:: Medication orders for pain may be administered in a
manner that supports deferring to patient preference
when the pt is:
- Requesting an ordered lesser potent pain medication.
Least to most potent pain medications are defined
as: acetaminophen < NSAID < tramadol < opioids
(morphine, oxycodone, hydromorphone).
- Requesting a lesser dose of the same medication IF
ORDERED.
- Requesting a less intrusive route of administration
if both routes are prescribed by the provider (PO <
IV).
10/01/24 04:04
Nitroglycerin Sublingual [Nitrostat (Sublingual)] See Dose Instructions .ROUTE .STK-MED ONE
10/01/24 04:05
Code Status As Directed
Resuscitation Status: Full Code
10/01/24 04:09
PTT Urgent
10/01/24 04:22
Nitroglycerin Sublingual [Nitrostat (Sublingual)] 0.4 mg .ROUTE .STK-MED ONE
10/01/24 04:29
Nitroglycerin Ointment [Nitro-Bid] 1 inch TOPICAL NOW STA
Nitroglycerin Sublingual [Nitrostat (Sublingual)] 0.4 mg SL NOW STA
10/01/24 04:30
PRN Pain Medication Management As Directed
May give lesser potent ordered pain med per pt: Yes
preference::
Protocol:: Medication orders for pain may be administered in a
manner that supports deferring to patient preference
when the pt is:
- Requesting an ordered lesser potent pain medication.
Least to most potent pain medications are defined
as: acetaminophen < NSAID < tramadol < opioids
(morphine, oxycodone, hydromorphone).
- Requesting a lesser dose of the same medication IF
ORDERED.
- Requesting a less intrusive route of administration
if both routes are prescribed by the provider (PO <
IV).
10/01/24 04:38
Nitroglycerin Ointment [Nitro-Bid] 1 inch .ROUTE .STK-MED ONE
10/01/24 05:38
Troponin I Q3H
Comment: at admit & Q3H for 3 total including ED draws, obtain ECG with each level
Acetaminophen [Tylenol/Feverall] 650 mg RECTAL Q4HPRN PRN
Acetaminophen [Tylenol] 650 mg PO Q4HPRN PRN
Mag Hydrox/Al Hydrox/Simeth [Maalox] 30 ml PO Q4HPRN PRN
Nitroglycerin Sublingual [Nitrostat (Sublingual)] 0.4 mg SL [id number] PRN
10/01/24 05:38
Echo 2D MMode Color/Doppler Routine
Reason for Study: chest pain
CARDIOLOGY CONSULT Routine
Consulting Provider: Jaylon Cisneros
Was physician already notified: Yes
VTE Contraindication Routine
VTE Mechanical Device Contraindication: Medical Contraindication
Pharmocologic Contraindication: Medical Contraindication
Heparin Protocol- PTT Orders As Directed
PTT per Heparin protocol: -Obtain CBC and baseline PTT - if not already collected.
-Obtain PTT 6 hours from start of infusion. Then, every 6 hours until 2 consecutive
PTT's are therapeutic. Then, PTT Daily.
-With each rate change, obtain PTT every 6 hours until 2 consecutive PTT's are
therapeutic. Then, PTT Daily.
Activity As Directed
Activity Level: As Tolerated
INT (Intravenous Needle Therapy) As Directed
Comment: maintain peripheral IV access
Intake/ Output As Directed
Frequency: Per unit guidelines
Notify MD As Directed
Notify physician if: PTT is greater than or equal to 200.
Vital Signs As Directed
Frequency: q4h
Weight As Directed
Frequency: Once
Pulse Ox/spot Check [RESP] Routine
Quantity: 1
Special Instructions: on admission and then every shift if on oxygen
10/01/24 Breakfast
NPO
Allow oral meds: Yes
Allow clear liquids: Sips of Clears
NPO with Ice Chips: Yes
Basic Metabolic Panel IN AM
Cardiovascular Evaluation IN AM
Complete Blood Count/No Diff IN AM
Glycohemoglobin (HgbA1c) IN AM
10/01/24 08:00
Amlodipine [Norvasc] 5 mg PO DAILY
Aspirin Chewable [Low Strength Aspirin] 81 mg PO DAILY
Clopidogrel Bisulfate [Plavix] 75 mg PO DAILY
10/01/24 08:38
Troponin I Q3H
Comment: at admit & Q3H for 3 total including ED draws, obtain ECG with each level
10/01/24 18:00
Rosuvastatin Calcium [Crestor] 20 mg PO QPM
10/02/24 06:00
Complete Blood Count/No Diff Q2D
Comment: notify provider: Platelet count < 130,000 or decrease by 50% from baseline
10/03/24 11:00
DC Protocol for Telemetry ONCE
10/04/24 06:00
Complete Blood Count/No Diff Q2D
Comment: notify provider: Platelet count < 130,000 or decrease by 50% from baseline
10/06/24 06:00
Complete Blood Count/No Diff Q2D
Comment: notify provider: Platelet count < 130,000 or decrease by 50% from baseline
10/08/24 06:00
Complete Blood Count/No Diff Q2D
Comment: notify provider: Platelet count < 130,000 or decrease by 50% from baseline
10/10/24 06:00
Complete Blood Count/No Diff Q2D
Comment: notify provider: Platelet count < 130,000 or decrease by 50% from baseline
10/12/24 06:00
Complete Blood Count/No Diff Q2D
Comment: notify provider: Platelet count < 130,000 or decrease by 50% from baseline
10/14/24 06:00
Complete Blood Count/No Diff Q2D
Comment: notify provider: Platelet count < 130,000 or decrease by 50% from baseline
10/16/24 06:00
Complete Blood Count/No Diff Q2D
Comment: notify provider: Platelet count < 130,000 or decrease by 50% from baseline
Abnormal Lab Results
09/30/24 10/01/24
23:20 02:05
WBC 4.6 L 10^3/uL
(4.8-10.8)
RBC 4.46 L 10^6/uL
(4.70-6.10)
MPV 10.8 H fL
(7.4-10.4)
Absolute Monos (auto) 0.7 H 10^3/uL
(0.1-0.6)
Neutrophils % 35.9 L %
(42.2-75.2)
Monocytes % 14.2 H %
(1.7-9.3)
Troponin I 0.044 H* D ng/ml
09/30/24 23:20
09/30/24 23:20
Vital Signs
Initial and Last Documented VS:
Initial Vital Signs
Temp Pulse Resp BP Pulse Ox
98.2 F 61 16 132/72 100
09/30/24 23:14 09/30/24 23:14 09/30/24 23:14 09/30/24 23:14 09/30/24 23:14
Last Documented Vital Signs
Temp Pulse Resp BP Pulse Ox
98.2 F 59 22 118/73 95
09/30/24 23:14 10/01/24 05:30 10/01/24 05:00 10/01/24 05:22 10/01/24 05:00
MDM/Problems Addressed
MDM/Problems Addressed:
69-year-old male presenting to the emergency department today with concerns of chest pain 30 minutes prior to arrival. Took 2 nitro at home. On arrival EKG nonspecific changes from previous but no signs of STEMI. Vital signs normal labs
unremarkable patient pain-free at time of arrival. Troponin negative. Troponin repeated now elevated plan to admit for possible NSTEMI. Given aspirin and started on heparin.
*Pulse Oximetry
SaO2: 100
Oxygen Mode of Delivery: Room air
Patient hypoxic: no (95)
*Critical Care Note
Total Time (30-74mins, 75-104mins- exclusive of procedures): Not Applicable
ED Attending Note
-
Portions of this chart may have been created with voice recognition software.� Occasional wrong word or��sound alike� substitutions may have occurred due to the inherent limitations of voice recognition software.
Discharge Plan
Departure
Patient Disposition: Admit
Date of Disposition: 10/01/24
Time of Disposition: 03:53
Admit to: Telemetry
Admit to doctor: Pricila
Presentation/result/management discussed w/ accepting MD/DO: Hospitalist
Patient with high blood pressure during this ER visit?: No
Condition: Good
Covid-19: Not Applicable
Discharge Problem:
NSTEMI (non-ST elevated myocardial infarction)
Interventions
Interventions:
*Risk Screen - Suicide Last Done: 09/30/24 23:14
*General Assessment Last Done: 09/30/24 23:14
*Neglect/Abuse Screening Last Done: 09/30/24 23:14
*ED- Fall Risk Assessment Last Done: 10/01/24 01:36
*ED COVID-19 Vaccine History Last Done: 10/01/24 05:15
*Nursing Disposition Last Done: 10/01/24 05:04
ED- Cardiac Assessment Last Done: 10/01/24 01:36
Discharge Date and Time
Discharge Date/Time: 10/01/24 05:05
--- NOTE | 2024-10-01 03:57 | EDRN ---
Addendum entered by Jessi Bose RN 10/01/24 04:06:
Sorenson at bedside prior to administering nitro. Patient reports pain has now resolved. Not administering nitro at this time.
Original Note:
After ambulating to bathroom, patient complained of L shoulder and LUE pain. Ed Delta made aware. Repeat EKG ordered as well as nitro.
--- NOTE | 2024-10-01 04:00 | HPS.HSE ---
Family Physician
-
Family Physician: NOT KNOW UNKNOWN - PT DOES
Chief Complaint
-
Chest pain
History of Present Illness
This is a 69-year-old male with past medical history significant for CAD status post stenting 1 year ago, hypertension diet-controlled diabetes and hyperlipidemia who presents to the emergency department with chest tightness.
Patient reported that he had IN a year ago and presented at that time with severe diaphoresis on the mild exertion. This time patient reported that symptoms began about 2 weeks ago. He reported initially going to the emergency department for
abdominal and epigastric discomfort. He had GI workup at that time which was negative. Ultimately he was discharged home and return to the emergency department for ongoing epigastric pain. At that time troponin was drawn. The first morning was
slightly positive but it was repeated and negative and patient was discharged. Patient reported that since then he has been having more dyspnea on exertion. He says he can only walk about a told of his usual number of steps which were up to about
15,000 a day. He reported that 5 days ago with vacuuming he developed severe diaphoresis and he had to stop. This lasted several minutes and then resolved. He has not had further episodes since then.
Today at around 10 PM patient developed squeezing sensation in his upper chest and left shoulder and triceps. He said there was no nausea vomiting or diaphoresis. He denies feeling short of breath. He denies having any cough. He denies any
fevers or chills. He took 2 doses of sublingual nitroglycerin with significant improvement in pain.
Patient reported that he has been compliant with his aspirin and Plavix as well as his rosuvastatin.
In the emergency department he was afebrile, blood pressure was 122/77 with a pulse of 57 and satting 100% on room air. ECG shows sinus bradycardia at a rate of 53 similar to prior. Initial troponin was 0.012, repeat troponin was 0.04. Currently
reports pain score of 3 out of 10. Chest x-ray is clear.
Medical History
Past Medical History
Past Medical History: Reports CAD, HTN, Hypercholesterolemia, NIDDM (Diet controlled) and Other (History of DVT, nephrolithiasis, chronic diverticulitis)
Past Surgical History: Reports Other (Inguinal hernia repair)
Social History
Tobacco: Former Smoker
Alcohol: None
Drug: None
Living: With Family
Family History
Family History: Not pertinent
Allergies / Home Medications
Allergies reflects when Allergies were last updated in [employer].
Home Medications with original date entered in [employer]
Allergy/Medication List:
Allergies
Allergy/AdvReac Type Severity Reaction Status Date / Time
tetanus toxoid, adsorbed Allergy Intermediate Shortness Verified 09/30/24 23:12
of Breath
lisinopril Allergy Shortness Verified 09/30/24 23:12
of Breath
Home Medications
ascorbic acid (vitamin C) 500 mg tablet (Vitamin C) 1,000 mg PO QPM Supplement 01/24/21
EPA-DHA 2 g PO QPM Supplement 07/23/23
cholecalciferol (vitamin D3) 5 g PO QPM Supplement 07/23/23
coenzyme Q10 100 mg capsule (Co Q-10) 100 mg PO QPM Supplement 07/23/23
magnesium 250 mg tablet 500 mg PO QPM Supplement 07/23/23
multivitamin 1 tab PO DAILY Supplement 07/23/23
vitamin B complex 1 tab PO QPM Supplement 07/23/23
zinc acetate 50 mg (zinc) capsule 50 mg PO QPM Supplement 07/23/23
aspirin 81 mg chewable tablet (Children's Aspirin) 81 mg PO DAILY #30 tabs 07/25/23
clopidogrel 75 mg tablet 75 mg PO DAILY #90 tabs 07/25/23
amlodipine 5 mg tablet 5 mg PO DAILY #30 tabs 07/30/23
nitroglycerin 0.4 mg sublingual tablet 0.4 mg sublingual [id number] PRN Chest pain #25 tabs 07/30/23
rosuvastatin 20 mg tablet 20 mg PO QPM #90 tabs 07/30/23
amoxicillin 875 mg-potassium clavulanate 125 mg tablet 1 tab PO BID #14 tabs 06/20/24
ciprofloxacin HCl 500 mg tablet 500 mg PO BID 10 days #20 tabs 09/12/24
metronidazole 500 mg tablet 500 mg PO BID 10 days #20 tabs 09/12/24
Review of Systems
-
History Source: Patient
A 12 point ROS was completed and negative except as noted: Yes
Constitutional: Reports No Symptoms
EENT: Reports No Symptoms
Respiratory: Reports No Symptoms
Cardiac: Reports Chest Pain
Abdomen/GI: Reports No Symptoms
: Reports No Symptoms
Musculoskeletal: Reports No Symptoms
Skin: Reports No Symptoms
Neurological: Reports No Symptoms
Endocrine: Reports No Symptoms
Hematologic/Lymphatic: Reports No Symptoms
Psych: Reports No Symptoms
Physical Exam
Vital Signs
Vital Signs
Temp Pulse Resp BP Pulse Ox
98.2 F 57 17 122/77 100
09/30/24 23:14 10/01/24 03:15 10/01/24 03:15 10/01/24 03:00 10/01/24 03:53
Physical Exam
General: Well Developed, Well Nourished and No Apparent Distress
HEENT: NormoCephalic, Moist mucous membranes and Atraumatic
Respiratory: Clear
Cardiac: S1/S2 and Regular Rhythm; No Murmur or Rub
GI: Soft, Non Tender, Non Distended and Normal Bowel Sounds; No Organomegaly
Rectal: Deferred by Provider
Musculoskeletal: No Clubbing, No Cyanosis and No Edema
Skin: No Rash
Neuro: Nonfocal/grossly intact
Psych: Calm
Laboratory Results
-
09/30/24 23:20
09/30/24 23:20
Laboratory Results
Total Bilirubin 0.8 mg/dl (0.2-1.3) 09/30/24 23:20
AST 31 U/L (17-59) 09/30/24 23:20
ALT 37 U/L (0-50) 09/30/24 23:20
Alkaline Phosphatase 48 U/L (38-126) 09/30/24 23:20
Troponin I 0.044 ng/ml H* D 10/01/24 02:05
Data Reviewed
-
Diagnostic Radiology: Image Personally Visualized and interpreted
Medical Tests (Nuc Med, Echo, EKG etc): Image Personally Visualized and interpreted
Lab Data: Labs Reviewed by me
Old Records: Reviewed
Impression/Plan
-
IMPRESSION:
69-year-old with past medical history of CAD with IN status post post stent 1 year ago on dual antiplatelet therapy presenting to the emergency department with chest pain, troponin rising from 0.012-0.04. Pain initially improved with sublingual
nitroglycerin. ECG shows sinus bradycardia without any acute ischemic changes. Patient is not on any beta-blockade. Repeat chest pain while I was at bedside 6/10, improved to 0/10 with sl-ntg. Appears to have been having symptoms intermittently
for about 2 weeks.
PLAN:
Chest pain -NSTEMI
-Admit to IVU
-N.p.o.
-Given aspirin 324,
-Heparin drip
-Pain improved w/ sl-ntg, placed on nitro paste 0.5in
-Patient is hemodynamically stable so we will start nitropaste if continued pain
- continue daily aspirin/plavix and statin
- echo, a1c in am
- cardiology consulted and notified
DVT PPX - on heparin
Code status - full code
[2024-10-01 04:34] LABS: APTT 28.3 Sec (23.4-35.0)
[2024-10-01] MEDS: NITROSTAT (SUBLINGUAL) 0.4 MG SL (04:40)
[2024-10-01] MEDS: NITRO-BID 1 INCH TOPICAL (04:40)
[2024-10-01] MEDS: HEPARIN 4000 UNITS IV (04:43)
[2024-10-01] MEDS: HEPARIN 25000 UNITS/250 ML IV (04:44)
--- NOTE | 2024-10-01 07:08 | PTCARENOTE ---
Received pt @ ~05:15 from ED. Pt AAOx3, VSS-- SB on monitor. Heparin gtt running through left forearm @ 1150 units/hr. Denies CP @ this time. Verbalizes being 'scared and nervous.' RN comforted pt and discussed possible plan of care. Pt verbalizes
understanding. Call real within reach.
[2024-10-01 07:22] LABS: Hematocrit 36.7 % (39.0-52.0); Hemoglobin 12.7 g/dL (13.0-18.0); Mean Corp Hgb Conc. 34.6 g/dL (33.0-37.0); Mean Corpuscular Volume 87.6 fL (80.0-94.0); Platelet Count 180 10^3/uL (130-400); Red Cell Dist. Width 12.4 % (11.5-14.5)
[2024-10-01 07:45] LABS: Troponin I 0.046 ng/ml
--- NOTE | 2024-10-01 08:10 | CON.CAR ---
Addendum entered and electronically signed by Kiet Thomson MD 10/01/24 09:10:
I saw and examined the patient independently.
The EXECUTIVE STAFF ASSISTANT's note was reviewed and I agree with the note with changes/additions as noted below.
Comment:
69 yo male with PMH of CAD, last stent to RPDA 07/2023, residual 60% mid LAD at that time, dyslipidemia admitted with chest pressure. Over past week, has been experiencing several sxs. One component is abdominal discomfort. But there has also been
diaphoresis with housework (atypical for him), tachycardia, and also last night experienced pressure/squeezing across his chest, which prompted ED evaluation. He is now chest pain free. Exam with RRR, no murmurs, no edema. TnI 0.046 and rising.
EKG: SB, poor R wave progression.
Chest pressure. ACS/NSTEMI.
-threat to life
-ASA, heparin drip (with monitoring of tele and Hgb)
-he continues on outpatient plavix
-cath and echo today
Tachycardia
-reported as outpatient
-monitor tele for arrhythmia
Original Note:
Consultation
Consultation Request
Date/Time Consultation Requested: 10/01/24539
Date/Time Consultation Performed: 10/01/24810
Requesting Provider: Dr. Oglesby
Performing Provider: Rashida FORTE for Dr. Thmoson
Reason for Consultation: chest pain
Medical History
-
Chief Complaint: chest pain
History of Present Illness:
69 y/o male with CAD with hx NSTEMI 07/2023 with PCI to mid RPDA, also with 60% mid LAD that was non flow-limiting by IFR, hypertension, dyslipidemia, former smoker, and hx type II DM (resolved with weight loss) who is here for evaluation of chest
discomfort, which felt light a band across his chest last night around 930 PM where he wasn't doing anything exertional. It went to his arms and back. He came to the ER. Pain resolved with nitro. EKG is stable. Trops up to 0.046. He is CP free at
the time of my assessment. Of note, he does tell me that he has had some issues with not feeling as well recently, as he was recently vacuuming and felt profusely sweaty (recalls this symptom prior to his previous SC). Also, he was walking recently
and felt tired and like his HR was faster than usual. No SOB. Tele stable. Finally, he went to [place] [facility] recently with abdominal pain- they felt he was constipated, but also he reports an abnormal troponin - details unclear. He is in no pain at
the time of my assessment.
Past Medical History
Past Medical History: CAD, HTN, Hypercholesterolemia and Other (as above)
Social History
Tobacco: Former Smoker
Family History
Family History: Reviewed & Not Pertinent
Allergies / Home Medications
Allergy/AdvReac Type Severity Reaction Status Date / Time
tetanus toxoid, adsorbed Allergy Intermediate Shortness Verified 09/30/24 23:12
of Breath
lisinopril Allergy Shortness Verified 09/30/24 23:12
of Breath
Updated med list not completed yet by pharmacy or nursing, but cardiac meds below are consistent with recent OP med list
�Medication �Instructions �Recorded �Confirmed �Type
ascorbic acid (vitamin C) 500 mg 1,000 mg PO QPM Supplement 01/24/21 07/29/23 History
tablet (Vitamin C)
EPA-DHA 2 g PO QPM Supplement 07/23/23 07/29/23 History
cholecalciferol (vitamin D3) 5 g PO QPM Supplement 07/23/23 07/29/23 History
coenzyme Q10 100 mg capsule (Co 100 mg PO QPM Supplement 07/23/23 07/29/23 History
Q-10)
magnesium 250 mg tablet 500 mg PO QPM Supplement 07/23/23 07/29/23 History
multivitamin 1 tab PO DAILY Supplement 07/23/23 07/29/23 History
vitamin B complex 1 tab PO QPM Supplement 07/23/23 07/29/23 History
zinc acetate 50 mg (zinc) capsule 50 mg PO QPM Supplement 07/23/23 07/29/23 History
aspirin 81 mg chewable tablet 81 mg PO DAILY #30 tabs 07/25/23 07/29/23 Rx
(Children's Aspirin)
clopidogrel 75 mg tablet 75 mg PO DAILY #90 tabs 07/25/23 07/29/23 Rx
amlodipine 5 mg tablet 5 mg PO DAILY #30 tabs 07/30/23 Rx
nitroglycerin 0.4 mg sublingual 0.4 mg sublingual [id number] PRN 07/30/23 Rx
tablet Chest pain #25 tabs
rosuvastatin 20 mg tablet 20 mg PO QPM #90 tabs 07/30/23 Rx
Review of Systems
-
History Source: Patient
All other systems: Negative unless noted
Cardiac: Chest Pain and Diaphoresis
Physical Exam
Vital Signs
Temp Pulse Resp BP Pulse Ox
97.5 F 61 18 117/73 99
10/01/24 06:49 10/01/24 07:00 10/01/24 06:49 10/01/24 06:49 10/01/24 06:56
Lab Results
10/01/24 06:54
Troponin I 0.046 ng/ml H* 10/01/24 06:54
Physical Exam
General: Well Developed, Well Nourished and No Apparent Distress
HEENT: Normocephalic and Anicteric
Respiratory: Clear and Non Labored Respirations
Cardiac: Regular Rhythm
Musculoskeletal: No Edema
Skin: Warm and Dry
Neuro: AO x 3
Psych: Calm
Impression / Plan
-
NSTEMI:
-diagnosis is threat to life
-CP free currently, nitropaste in place
-full dose ASA given, patient is on ASA and Plavix- continue. Continue statin.
-continue IV heparin, which requires intensive monitoring
-trend trops to peak, obtain echo
-geophysical laboratory supervisor today
CAD:
-cath 07/24/23: Right dominant circulation with a nonocclusive 50-60% mid LAD lesion (IFR = 0.96) and a culprit, 80% mid RPDA lesion status post successful PCI ([employer] [place] Waller 2.25 x 12 CONNIE) with reduction in stenosis to 0%, maintaining
EAGLE-3 flow.
-on DAPT and statin- continue
Hx DM:
-hgbA1C is pending
HLD:
-update lipids
-continue statin
HTN:
-continue CCB and monitor
Data Reviewed
-
EKG: Tracing Personally Visualized and interpreted (NSR 63 BPM)
Radiology: Image Personally Visualized and interpreted (no evidence of excess volume to my review- awaiting radiology read)
Medical Tests (Nuc Med, Echo etc): Report Reviewed by me (echo 07/24/23: Normal left ventricular size, wall thickness and systolic function. No regional wall motion abnormalities are seen. LV ejection fraction is 73 % by Bullard's method of
discs. Normal diastolic function. Normal right ventricular size and function. No significant valvular disease) and Other (cath 07/24/23: . Right dominant circulation with a nonocclusive 50-60% mid LAD lesion (IFR = 0.96) and a culprit, 80% mid
RPDA lesion status post successful PCI ([employer] [place] Waller 2.25 x 12 CONNIE) with reduction in stenosis to 0%, maintaining EAGLE-3 flow.)
Labs: Labs Reviewed by me
[2024-10-01 08:18] LABS: Glucose - Point of Care 79 mg/dl (70-99)
[2024-10-01 08:50] LABS: Glycohemoglobin (HgbA1c) 4.9 % (4.0-5.6)
[2024-10-01 09:09] LABS: Blood Urea Nitrogen 10 mg/dl (9-20); Calcium 9.6 mg/dl (8.4-10.2); Carbon Dioxide 30 mmol/L (22-30); Chloride 103 mmol/L (98-107); Estimated Creatinine Clearance 112 ml/min; Glucose 91 mg/dl (70-99); HDL Cholesterol 54 mg/dl; LDL Cholesterol, Calculated 76 mg/dl; Potassium 3.7 mmol/L (3.5-5.1); Sodium 141 mmol/L (135-145); Very Low Density Lipoprotein 10 mg/dl (0-30); eGFR > 60.00
[2024-10-01] MEDS: LOW STRENGTH ASPIRIN 81 MG PO (09:12)
[2024-10-01] MEDS: NORVASC 5 MG PO (09:12)
[2024-10-01] MEDS: PLAVIX 75 MG PO (09:12)
--- NOTE | 2024-10-01 09:18 | PTCARENOTE ---
received patient this am, quite anxious about heart cath today. monitor shows NSR, VSS. IV heparin @ 1150units/hr. report given to labor employment associate.
--- NOTE | 2024-10-01 10:18 | ITS.CL.CATH ---
Computer Networker - Catheterization
Cardiac Catheterization
Procedure Report:
CARDIAC CATHETERIZATION REPORT
Date of Procedure: 10/01/2024
Referring: Jaylon Cisneros M.D.
INDICATION: Non-ST elevation myocardial infarction, known coronary artery disease
PROCEDURE:
1. Left heart catheterization.
2. Coronary angiography.
A total of 28 minutes of procedural/moderate sedation was utilized. An independent medical coder was present to assist with and help manage the patient's level of consciousness and physiologic status.
ACCESS:
1. 6 Cambodian right radial artery using a modified Seldinger technique delete.
CATHETERS:
1. 5 Cambodian JR4.
2. 5 Cambodian JL 3.5.
3. 6 Cambodian angled pigtail catheter.
HEMODYNAMIC DATA
Weight (kg): 77.1
AO (s/d/x, mmHg): 98/65/81
LV (s/x mmHg): 106/8
LEFT VENTRICULOGRAPHY: Performed in an BARNES projection. Normal left ventricular size and systolic function without regional wall motion abnormality. Left ventricular ejection fraction estimated at 65%. There is no mitral valve regurgitation.
There is no aortic valve insufficiency. The aortic root, the visualized ascending and descending aorta are normal.
CORONARY ANGIOGRAPHY
Dominance: Right.
Left Main: Normal size, bifurcating vessel. There is no coronary artery disease.
LAD: Normal size vessel giving rise to 2 significant diagonals. There is a 50% lesion in the mid vessel spanning the origin of D2. Of note, there is sluggish flow in the apical LAD with some contrast retention within the LAD vessel suspicious
for depressed outflow.
Ramus: Congenitally absent.
Circumflex: Large size, nondominant vessel giving rise to 1 large obtuse marginal that supplies a majority of the inferolateral wall. There is no coronary artery disease. There is sluggish filling of the distal vessels with delayed washout.
RCA: Normal size, dominant vessel. There are luminal irregularities in the mid RCA. There is a patent stent in the mid RPDA with no evidence of in-stent restenosis.
INTERVENTION(S)
None.
Closure Device: Vascular band.
Radiation (mGy): 460.44
DAP (cm2.Gy): 37.4442
Fluoroscopy time (minutes): 2.6
CONCLUSIONS
1. Right dominant circulation with a patent stent in the mid RPDA, luminal irregularities in the mid RCA, and unchanged, 50% lesion in the mid LAD spanning the origin of D2 with sluggish flow noted in the LAD and circumflex vessels with delayed
contrast washout suggestive of poor outflow/endothelial dysfunction.
2. Normal left ventricular size and systolic function. LV ejection fraction 65%.
3. Normal filling pressures (LV EDP = 8 mmHg at 77.1 kg).
RECOMMENDATIONS:
1. Expectant management after cardiac catheterization via right radial approach.
2. Limited weight bearing on the right wrist for one week.
3. OMT/GDMT as hemodynamics will tolerate.
4. Treatment of endothelial dysfunction with up titration of antihypertensive medications including calcium channel blockers and invocation of beta-blockers and long-acting nitrates. Of note, the patient is allergic to CÉSAR inhibitors.
5. Continue aggressive secondary prevention with aspirin and high-dose, high potency statin. Goal LDL <55.
6. Echocardiogram ordered and pending.
Copy to: Howard Salas M.D., Sergey Faust PA-C
Lasha Umaña DO, FACC, FACP
--- NOTE | 2024-10-01 10:38 | W.PN.HOSP.TC ---
Today's Communication/Plan
-
see A/P
Assessment / Plan
Assessment / Plan
HPI: 69-year-old with past medical history of CAD status post stent 1 year ago on dual antiplatelet therapy, hypertension, diet-controlled diabetes, and hyperlipidemia; p/w intermittent chest pain for about 2 weeks.
His troponin increased from 0.012 to 0.044. Pain initially improved with sublingual nitroglycerin. ECG showed sinus bradycardia without any acute ischemic changes. Patient is not on any beta-blockade.
A/P:
# Chest pain 2/2 NSTEMI
s/p cardiac cath 10/01 with following findings:
1. Right dominant circulation with a patent stent in the mid RPDA, luminal irregularities in the mid RCA, and unchanged, 50% lesion in the mid LAD spanning the origin of D2 with sluggish flow noted in the LAD and circumflex vessels with delayed
contrast washout suggestive of poor outflow/endothelial dysfunction.
2. Normal left ventricular size and systolic function. LV ejection fraction 65%.
3. Normal filling pressures (LV EDP = 8 mmHg at 77.1 kg).
Per card, to treat endothelial dysfunction with up titration of antihypertensive medications including calcium channel jag, beta-blockers and long-acting nitrates. Of note, the patient is allergic to CÉSAR inhibitors.
Continue aggressive secondary prevention with aspirin and high-dose, high potency statin. Goal LDL <55.
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
Follow Echocardiogram
Card on board
DVT PPX - currently on heparin drip
Code status - full code
DW Card
total time spent 51 min
Anticipated Discharge: Within 24 hours
Subjective/Interval History
-
Date of Service: October 01, 2024
Objective Data
-
Labs:
Laboratory Results
09/30/24 10/01/24 10/01/24
23:20 04:09 06:54
WBC 4.6 L 4.0 L
Hgb 13.5 12.7 L
Hct 39.6 36.7 L
Plt Count 216 180
APTT 28.3
Sodium 136 Cancelled
Potassium 4.4 Cancelled
Chloride 102 Cancelled
Carbon Dioxide 28 Cancelled
BUN 14 Cancelled
Creatinine 0.7 Cancelled
Glucose 95 Cancelled
Calcium 9.9 Cancelled
Total Bilirubin 0.8
AST 31
ALT 37
Alkaline Phosphatase 48
10/01/24 10/01/24
08:15 09:50
WBC
Hgb
Hct
Plt Count
APTT Cancelled
Sodium 141
Potassium 3.7
Chloride 103
Carbon Dioxide 30
BUN 10
Creatinine 0.6 L
Glucose 91
Calcium 9.6
Total Bilirubin
AST
ALT
Alkaline Phosphatase
Vital Signs:
Vital Signs
Temp Pulse Resp BP Pulse Ox
36.4 C 81 18 117/73 99
10/01/24 06:49 10/01/24 09:12 10/01/24 06:49 10/01/24 09:12 10/01/24 06:56
Review of Systems
-
History Source: Patient
All other systems: Reviewed and negative
Cardiac: Denies Chest Pain (resolved )
Physical Exam
-
General: Well Developed, Well Nourished, No Apparent Distress and Comfortable
Respiratory: Clear to Auscultation and Non Labored Respirations; Negative Wheezes or Accessory Resp Muscle Use
Cardiac: Regular Rhythm and S1/S2
GI: Soft and Nontender
Skin: Warm and Dry
Neuro: Awake and Alert
Psych: Calm and Intact Judgement/Insight
Data Reviewed
-
Labs: Labs Reviewed by me
--- NOTE | 2024-10-01 11:31 | CM ---
Chart reviewed. Patient is independent of ADLS, lives with his in a 2 [address], 2 TASHI, 0 DME. Plan is for the patient to return home. CM to follow
[2024-10-01] MEDS: IMDUR (EXTENDED RELEASE) 30 MG PO (12:03)
[2024-10-01] MEDS: CRESTOR 40 MG PO (18:03)
[2024-10-01] MEDS: TYLENOL 650 MG PO (19:22)
--- NOTE | 2024-10-01 19:23 | PTCARENOTE ---
patient c/o frontal headache, Tylenol po given as ordered.
--- NOTE | 2024-10-01 20:34 | PTCARENOTE ---
patient dozing on and off, patient stated, 'I didn't sleep well last night'. monitor shows NSR, VSS. no change from previous assessment.
--- NOTE | 2024-10-02 01:37 | PTCARENOTE ---
Rec'd pt at 2300. Pt AAO*3, VSS, and SR on TELE monitor. Pt denying any pain or discomfort and resting with call real in reach. See MAR and flowchart for full pt care and assessment.
[2024-10-02 02:16] VITALS: BP 104/55
[2024-10-02 02:17] VITALS: BP 104/55
[2024-10-02 02:24] VITALS: BMI 25.7
[2024-10-02] MEDS: TYLENOL 650 MG PO ×2 (02:24→08:27)
[2024-10-02 02:56] LABS: Hematocrit 34.6 % (39.0-52.0); Hemoglobin 11.9 g/dL (13.0-18.0); Mean Corp Hgb Conc. 34.4 g/dL (33.0-37.0); Mean Corpuscular Volume 87.8 fL (80.0-94.0); Platelet Count 187 10^3/uL (130-400); Red Cell Dist. Width 12.6 % (11.5-14.5)
[2024-10-02 03:18] LABS: Blood Urea Nitrogen 8 mg/dl (9-20); Calcium 9.2 mg/dl (8.4-10.2); Carbon Dioxide 27 mmol/L (22-30); Chloride 108 mmol/L (98-107); Estimated Creatinine Clearance 112 ml/min; Glucose 82 mg/dl (70-99); Magnesium 2.0 mg/dl (1.6-2.3); Potassium 4.1 mmol/L (3.5-5.1); Sodium 139 mmol/L (135-145); eGFR > 60.00
[2024-10-02 03:29] LABS: Troponin I 0.017 ng/ml
--- NOTE | 2024-10-02 08:03 | W.PN.CD ---
Today's Communication / Plan
-
Continue isosorbide mononitrate 30 mg daily. Treat concurrently with APAP and coffee (caffeine for SCHMIDT).
Continue amlodipine 5 mg daily.
Rosuvastatin increased to 40 mg daily. Goal LDL < 55.
Discharge.
Impression / Plan
-
Impression/Plan: 69 y/o male with DM, HTN, HLD and CAD s/p prior PCI admitted with chest pain + troponin (consistent with NSTEMI), found to have stable CAD without new lesion, likely endothelial dysfunction.
#Chest pain/troponin elevation:
-Acute.
-Troponin peaked at 0.046, now down to 0.017.
-Coronary angiography showed stable CAD, patent RPDA stent, stable mid LAD disease that appears unchanged, normal LF function.
-Slower flow through the vessels with delayed washout in the absence of new CAD suggests poor outflow/endothelial dysfunction. DDx includes very low severity myocarditis.
-BP is on the lower side, HR is ~50, ACEI allergy.
-Maintain amlodipine 5 mg daily.
-Isosorbide mononitrate 30 mg daily started yesterday. APAP ATC for any associated headache. He may take with coffee to assist with headache treatment.
#CAD:
-Chronic, stable.
-Cath 07/24/23: Right dominant circulation with a nonocclusive 50-60% mid LAD lesion (IFR = 0.96) and a culprit, 80% mid RPDA lesion status post successful PCI ([employer] Ariel [place] 2.25 x 12 CONNIE) with reduction in stenosis to 0%, maintaining
EAGLE-3 flow.
-Repeat cath on 10/01/2024 showed stable CAD, patent RPDA stent and slow flow/decreased contrast washout in LAD/LCx concerning for endothelial dysfunction.
-Maintain DAPT at this time.
-GDMT limited by BP/HR. Continue amlodipine. Isosorbide mononitrate started for arteriodilation.
-Continue rosuvastatin.
#Hx DM:
-Chronic, stable.
-HbA1c = 4.9%.
#HLD:
-Chronic, stable.
-Total cholesterol = 140, LDL = 76, HDL = 54, Triglycerides = 54.
-Rosuvastatin increased to 40 mg daily.
-Goal LDL < 55.
#HTN:
-Chronic, stable.
Subjective/Interval History:
Cath yesterday shows now new CAD.
Isosorbide mononitrate started.
DATA:
Cardiac Catheterization, 10/01/2024:
CONCLUSIONS
1. Right dominant circulation with a patent stent in the mid RPDA, luminal irregularities in the mid RCA, and unchanged, 50% lesion in the mid LAD spanning the origin of D2 with sluggish flow noted in the LAD and circumflex vessels with delayed
contrast washout suggestive of poor outflow/endothelial dysfunction.
2. Normal left ventricular size and systolic function. LV ejection fraction 65%.
3. Normal filling pressures (LV EDP = 8 mmHg at 77.1 kg).
Transthoracic Echocardiogram, 10/01/2024:
CONCLUSIONS
Normal biventricular size and systolic function without regional wall motion
abnormality. Estimated LVEF 60%.
Aortic sclerosis without stenosis.
Compared to 07/24/23: no significant change.
Physical Exam
Vital Signs/Labs
Vital Signs
Temp Pulse Resp BP Pulse Ox
36.5 C 54 18 104/55 99
10/02/24 07:15 10/02/24 07:15 10/02/24 07:15 10/02/24 02:17 10/02/24 07:15
09/30/24 10/01/24 10/02/24
11:59 11:59 11:59
Actual Weight 77.5 kg 76.8 kg
10/02/24 02:20
10/02/24 02:20
APTT Cancelled 10/01/24 09:50
Magnesium 2.0 mg/dl (1.6-2.3) 07/25/25 02:20
Triglycerides 54 mg/dl (10-149) 10/01/24 08:15
LDL Cholesterol, Calc 76 mg/dl 10/01/24 08:15
VLDL Cholesterol, Calc 10 mg/dl (0-30) 10/01/24 08:15
HDL Cholesterol 54 mg/dl 10/01/24 08:15
LAB Results
09/30/24 10/01/24 10/01/24
23:20 02:05 05:38
Troponin I < 0.012 0.044 H* D Cancelled
10/01/24 10/02/24
06:54 02:23
Troponin I 0.046 H* 0.017
Physical Exam
Constitutional: No acute distress and Comfortable
EENT: Anicteric and Moist mucous membranes
Cardiovascular: Rhythm & rate is regular, Pedal edema is absent, JVD pressure is normal, S1S2 is normal and Murmur/rub/gallop absent
Respiratory: Respiratory effort normal, Lungs clear to auscul., Wheeze Absent, Crackles Absent and Rhonchi Absent
GI: Soft, Distention absent, Flat, Non tender and Normal bowel sounds
Neuro/Psych: AO x 3
Other: Cath Site (Right radial access site is C/D/I.)
Data Reviewed
-
Date of Service: October 02, 2024
Medical Decision Making: Reviewed Test Results, Independent Historian Assessment and Test Interpretation
EKG: Tracing Personally Visualized and interpreted and Report Reviewed by me
Echo: Tracing Personally Visualized and interpreted and Report Reviewed by me
X-Ray/CT/US/MRI/NUC/PET: Image Personally Visualized and interpreted and Report Reviewed by me
Medical Tests (PFT, Pathology etc): Image Personally Visualized and interpreted and Report Reviewed by me
Labs: Labs Reviewed by me
[2024-10-02] MEDS: LOW STRENGTH ASPIRIN 81 MG PO (08:26)
[2024-10-02] MEDS: IMDUR (EXTENDED RELEASE) 30 MG PO (08:26)
[2024-10-02] MEDS: NORVASC 2.5 MG PO (08:26)
[2024-10-02] MEDS: PLAVIX 75 MG PO (08:26)
--- NOTE | 2024-10-02 08:37 | W.PN.HOSP.TC ---
Addendum entered and electronically signed by Marifer Wilkins MD 10/02/24 14:07:
total DC time 40 min
Original Note:
Today's Communication/Plan
-
see A/P
Assessment / Plan
Assessment / Plan
HPI: 69-year-old with past medical history of CAD status post stent 1 year ago on dual antiplatelet therapy, hypertension, diet-controlled diabetes, and hyperlipidemia; p/w intermittent chest pain for about 2 weeks.
His troponin increased from 0.012 to 0.044. Pain initially improved with sublingual nitroglycerin. ECG showed sinus bradycardia without any acute ischemic changes. Patient is not on any beta-blockade.
A/P:
# Chest pain 2/2 NSTEMI
s/p cardiac cath 10/01 with following findings:
1. Right dominant circulation with a patent stent in the mid RPDA, luminal irregularities in the mid RCA, and unchanged, 50% lesion in the mid LAD spanning the origin of D2 with sluggish flow noted in the LAD and circumflex vessels with delayed
contrast washout suggestive of poor outflow/endothelial dysfunction.
2. Normal left ventricular size and systolic function. LV ejection fraction 65%.
3. Normal filling pressures (LV EDP = 8 mmHg at 77.1 kg).
Per card, to treat endothelial dysfunction with up titration of antihypertensive medications including calcium channel jag, beta-blockers and long-acting nitrates. Of note, the patient is allergic to CÉSAR inhibitors.
Continue aggressive secondary prevention with aspirin and high-dose, high potency statin. Goal LDL <55.
Started Imdur 30 mg, increased Crestor to 40 mg
Cont ELECTRIC STOVE MECHANIC plavix
Echo this admission unrevealing: Normal biventricular size and systolic function without regional wall motion abnormality. LVEF 60%. Aortic sclerosis without stenosis. Compared to 07/24/23: no significant change.
Card on board
DVT PPX - SCD
Code status - full code
DW Card
Anticipated Discharge: Today
Subjective/Interval History
-
Date of Service: October 02, 2024
Objective Data
-
Labs:
Laboratory Results
10/02/24
02:20
WBC 5.9
Hgb 11.9 L
Hct 34.6 L
Plt Count 187
Sodium 139
Potassium 4.1
Chloride 108 H
Carbon Dioxide 27
BUN 8 L
Creatinine 0.6 L
Glucose 82
Calcium 9.2
Vital Signs:
Vital Signs
Temp Pulse Resp BP Pulse Ox
36.5 C 54 18 104/55 99
10/02/24 07:15 10/02/24 07:15 10/02/24 07:15 10/02/24 02:17 10/02/24 07:15
I&O
10/01/24 10/02/24 10/03/24
06:59 06:59 06:59
Intake Total 348 / 348
Output Total 300 / 300
Balance 48 / 48
Review of Systems
-
History Source: Patient
All other systems: Reviewed and negative
Cardiac: Denies Chest Pain (resolved )
Physical Exam
-
General: Well Developed, Well Nourished, No Apparent Distress, Comfortable and Conversant
Respiratory: Clear to Auscultation and Non Labored Respirations; Negative Wheezes or Accessory Resp Muscle Use
Cardiac: Regular Rhythm and S1/S2
GI: Soft and Nontender
Skin: Warm and Dry
Neuro: Awake and Alert
Psych: Calm and Intact Judgement/Insight
Data Reviewed
-
Labs: Labs Reviewed by me
--- NOTE | 2024-10-02 14:01 | W.DCSUMMARY ---
Discharge Summary
Discharge Data
Date of Admission: 10/01/24
Date of Discharge: 10/02/24
-
Pending Results: No
Hospital Course
Principal Diagnosis:
Chest pain due to ACS
Chronic Diagnoses:�
CAD status post stent 1 year ago on dual antiplatelet therapy
hypertension
diet-controlled diabetes
hyperlipidemia
Consultations:�
Cardiology
Procedures:�
Cardiac cath 10/01 with following findings:
1. Right dominant circulation with a patent stent in the mid RPDA, luminal irregularities in the mid RCA, and unchanged, 50% lesion in the mid LAD spanning the origin of D2 with sluggish flow noted in the LAD and circumflex vessels with delayed
contrast washout suggestive of poor outflow/endothelial dysfunction.
2. Normal left ventricular size and systolic function. LV ejection fraction 65%.
3. Normal filling pressures (LV EDP = 8 mmHg at 77.1 kg).
Clinical course:�
This is a 69-year-old with past medical history as stated above, who presented with intermittent chest pain ongoing for 2 weeks.
His troponin was also noted to be increased from 0.012 to 0.044. His chest pain improved with sublingual nitroglycerin.
Problem 1:
Chest pain 2/2 ACS.
His echo this admission was unrevealing: Normal biventricular size and systolic function without regional wall motion abnormality. LVEF 60%. Aortic sclerosis without stenosis. Compared to 07/24/23: no significant change.
He underwent cardiac cath 10/01 with the following findings:
1. Right dominant circulation with a patent stent in the mid RPDA, luminal irregularities in the mid RCA, and unchanged, 50% lesion in the mid LAD spanning the origin of D2 with sluggish flow noted in the LAD and circumflex vessels with delayed
contrast washout suggestive of poor outflow/endothelial dysfunction.
2. Normal left ventricular size and systolic function. LV ejection fraction 65%.
3. Normal filling pressures (LV EDP = 8 mmHg at 77.1 kg).
Per mail weigher, the plan is to treat his endothelial dysfunction with up titration of antihypertensive medications.
He can continue with Norvasc 5 mg, and Imdur 30 mg daily was started this admission which he can continue going forward.
His prior to admission Crestor was increased from 20 to 40 mg which he can continue following discharge.
He can continue with his prior to admission aspirin and Plavix.
As for the rest of his medical problems, they were stable during his hospital stay.
Discharge Plan
-
Patient Disposition: Home (Routine Discharge)
Discharge Diagnosis/Procedures: Chest pain due to NSTEMI, status post cardiac cath 10/01 with following findings:
1. Right dominant circulation with a patent stent in the mid RPDA, luminal irregularities in the mid RCA, and unchanged, 50% lesion in the mid LAD spanning the origin of D2 with sluggish flow noted in the LAD and circumflex vessels with delayed
contrast washout suggestive of poor outflow/endothelial dysfunction.
2. Normal left ventricular size and systolic function. LV ejection fraction 65%.
3. Normal filling pressures (LV EDP = 8 mmHg at 77.1 kg).
Condition: Fair
Diet: As tolerated, Low Fat, Low Cholesterol and Low Sodium
Activity: As tolerated
Driving Restrictions: As prior to admission
Stand Alone Forms: DC Instructions- Cath/EP Lab
Referrals:
UNKNOWN - PT DOES,NOT KNOW [Family Provider] - in less than 1 week
Additional Discharge Medication Instructions: Continue to take Imdur 30 mg daily.
For headache, you can take tylenol with Imdur, or drink coffee with help with imdur related headache.
Your Crestor was increased from 20 to 40 mg
Prescriptions:
New
isosorbide mononitrate 30 mg Tablet Extended Release 24 Hr
30 mg PO DAILY Qty: 30 0RF
rosuvastatin 40 mg Tablet
40 mg PO QPM Qty: 30 0RF
Continued
ascorbic acid (vitamin C) [Vitamin C] 500 MG tablet
1,000 mg PO QPM
multivitamin Tablet
1 tab PO DAILY
zinc acetate 50 mg (zinc) Capsule
50 mg PO QPM
magnesium 250 mg Tablet
500 mg PO QPM
coenzyme Q10 [Co Q-10] 100 mg Capsule
100 mg PO QPM
EPA-DHA
2 g PO QPM
cholecalciferol (vitamin D3)
5 g PO QPM
clopidogrel 75 mg Tablet
75 mg PO DAILY Qty: 90 0RF
aspirin [Children's Aspirin] 81 mg Tablet,Chewable
81 mg PO DAILY Qty: 30 0RF
amlodipine 5 mg Tablet
5 mg PO DAILY Qty: 30 0RF
nitroglycerin 0.4 mg Tablet, Sublingual
0.4 mg sublingual [id number] PRN (Reason: Chest pain) Qty: 25 0RF
Discontinued
rosuvastatin 20 mg Tablet
20 mg PO QPM Qty: 90 0RF
Discharge Orders:
Discharge Patient (As Directed); Ordered 10/02/24
Ordered By: Marifer Wilkins
Care Plan Goals
Care Plan Goals:
Problem: Readiness for enhanced knowledge related to diagnosis and treatment plan
Goal: Understand your diagnosis and treatment plan needs, including medications if applicable.
Instructions: Know your diagnosis, underlying causes and treatment plan options, including medications if applicable. Consult with your health care team to learn about your diagnosis and treatment plan, including medications if applicable.
Discharge Date and Time
Discharge Date/Time: 10/02/24 10:29
Print Language: MONGOLIAN
== END 2024-10-02 10:29 | disposition home or self-care (01) ==
LOC: CATH 04:44
PROVIDERS: Internal Medicine; Physician Assistant; CONSULT PHYSICIAN Internal Medicine Cardiovascular Disease; EMERGENCY PHYSICIAN Emergency Medicine
DX: I21.4 Non-ST elevation (NSTEMI) myocardial infarction (principal); I25.10 Atherosclerotic heart disease of native coronary artery without angina pectoris; R07.9 Chest pain, unspecified; E11.9 Type 2 diabetes mellitus without complications; I10 Essential (primary) hypertension; E78.00 Pure hypercholesterolemia, unspecified; I25.2 Old myocardial infarction; Z95.5 Presence of coronary angioplasty implant and graft; Z87.891 Personal history of nicotine dependence; Z86.718 Personal history of other venous thrombosis and embolism; Z82.49 Family history of ischemic heart disease and other diseases of the circulatory system; Z79.02 Long term (current) use of antithrombotics/antiplatelets; Z79.82 Long term (current) use of aspirin
CPT/HCPCS: 99152; 99153; C1894; 71046; 80048; 80053; 80061; 82962; 83036; 83735; 84484; 85025; 85027; 85730; 93005; 93306; 93458; 99285; Q9967

== ENCOUNTER 2024-10-06 10:31 | Emergency (ER) | payer MEDICARE, OTHER, SELFPAY ==
[2024-10-06 10:33] VITALS: BP 118/71
[2024-10-06 10:57] VITALS: BP 115/74
[2024-10-06 11:00] VITALS: BP 111/70
[2024-10-06 11:19] VITALS: BMI 26.1
[2024-10-06 11:21] LABS: Hematocrit 39.9 % (39.0-52.0); Hemoglobin 13.3 g/dL (13.0-18.0); Mean Corp Hgb Conc. 33.3 g/dL (33.0-37.0); Mean Corpuscular Volume 89.7 fL (80.0-94.0); Nucleated Red Blood Cells % 0 % (-); Platelet Count 195 10^3/uL (130-400); Red Cell Dist. Width 12.7 % (11.5-14.5)
--- NOTE | 2024-10-06 11:22 | ED.GENMED ---
History of Present Illness
General
Chief Complaint: Chest Pain
Source: patient, records and previous hospital records
Exam Limitations: none
Time Seen by Provider: 10/06/24 10:54
Nursing documentation reviewed up to this point in time: agreed with
History of Present Illness
History of Present Illness:
69-year-old male history of CAD status post stenting a year ago admitted over the weekend with angina non-STEMI underwent a cath thought to be due to endothelial dysfunction not stented placed on Imdur yesterday had some shortness of breath with
activity today had chest pain into his arm and jaw at rest lasted 30 minutes, similar but less severe than his IA a year ago currently chest pain-free, has had no syncope no bloody stools no blood in his urine been compliant with his meds since
discharge
Past History
Past History
ED Past Medical History: Asthma (seasonal), CAD, HTN, Hypercholesterolemia, NIDDM (Diet controlled) and Other (Chronic diverticulitis, PNA, DVT, Renal calculus, )
ED Past Surgical History: Cardiac, Tonsilectomy and Other (Hernia repair); Negative Appendectomy, Bowel resection or Cholecystectomy
Social History
Tobacco: Former smoker
Alcohol: None
Drug: None
Personal:
Living: with family
Employment: Employed
Family History
Family History: Hypertension
Phy Exam
Physical Exam
Physical Exam:
Physical Exam
General: no apparent distress, not acutely ill
Neck: Without jaundice
Heart: Regular
Lungs: no acute respiratory distress. clear bilaterally
Abdomen: Not tender
Neuro: alert and oriented. no focal neurological deficits
Skin: no rash
Psychiatric: well kept. interactive and cooperative
Extremities: no edema. Right wrist site looks good
Scores
Heart Score for Chest Pain Patients
STEMI patient?: No
History: Moderately Suspicious
ECG: Normal
Age: >/= 65 years
Risk Factors: >/= 3 Risk Factors or History of CAD
Troponin: </= Normal Limit
Heart Score for Chest Pain Patients: 5
Heart Score Risk: 20.3% MACE over next 6 weeks
Course
Orders/Labs/Results
Orders:
Orders
10/06/24 10:34
Electrocardiogram (*1) Urgent
Reason for Study: Chest Pain
EKG- Treatment ONCE
10/06/24 11:14
Complete Blood Count/With Diff Urgent
Comprehensive Metabolic Panel Urgent
Magnesium Urgent
Troponin I Urgent
10/06/24 11:27
CARDIOLOGY CONSULT Urgent
Consulting Provider: Howard Salas
Was physician already notified: Yes
Abnormal Lab Results
10/06/24
11:14
WBC 3.6 L 10^3/uL
(4.8-10.8)
RBC 4.45 L 10^6/uL
(4.70-6.10)
MPV 10.9 H fL
(7.4-10.4)
Absolute Lymphs (auto) 0.9 L 10^3/uL
(1.2-3.4)
Monocytes % 16.9 H %
(1.7-9.3)
Carbon Dioxide 32 H mmol/L
(22-30)
10/06/24 11:14
10/06/24 11:14
Vital Signs
Initial and Last Documented VS:
Initial Vital Signs
Temp Resp BP Pulse Ox
97.5 F 16 118/71 100
10/06/24 10:33 10/06/24 10:33 10/06/24 10:33 10/06/24 10:33
Last Documented Vital Signs
Temp Pulse Resp BP Pulse Ox
97.5 F 54 16 111/70 98
10/06/24 10:33 10/06/24 11:45 10/06/24 11:45 10/06/24 11:00 10/06/24 11:45
MDM/Problems Addressed
Differential Diagnosis Includes:
ACS, noncardiac pain, doubt PE
MDM/Problems Addressed:
Chest pain
Chronic conditions affecting care: CAD
Acute Exacerbation and/or Progression of Chronic Illness: CAD
*Pulse Oximetry
SaO2: 100
Oxygen Mode of Delivery: Room air
Patient hypoxic: no (99)
*Laborer Demolition Interpretation
Rate: normal
Interpretation: normal
Heart Rate: 78
Rhythm: sinus
*Critical Care Note
Total Time (30-74mins, 75-104mins- exclusive of procedures): Not Applicable
Data Reviewed
Review of Other/Old Records Reveals: Labs, Operative Reports and Discharge Summary
Source: patient
Update Note
Update Note:
1:15 PM prior records reviewed troponin noted reviewed with cardiology who evaluated the patient at bedside stable for discharge
ED Attending Note
-
Portions of this chart may have been created with voice recognition software.� Occasional wrong word or��sound alike� substitutions may have occurred due to the inherent limitations of voice recognition software.
Discharge Plan
Departure
Patient Disposition: Home (Routine Discharge)
Date of Disposition: 10/06/24
Time of Disposition: 13:27
Patient with high blood pressure during this ER visit?: No
Condition: Good
Discharge Problem:
Chest pain
Instructions: Chest Pain CBC Follow Up
Prescriptions:
No Action
ascorbic acid (vitamin C) [Vitamin C] 500 MG tablet
1,000 mg PO QPM
multivitamin Tablet
1 tab PO DAILY
zinc acetate 50 mg (zinc) Capsule
50 mg PO QPM
magnesium 250 mg Tablet
500 mg PO QPM
coenzyme Q10 [Co Q-10] 100 mg Capsule
100 mg PO QPM
EPA-DHA
2 g PO QPM
cholecalciferol (vitamin D3)
5 g PO QPM
clopidogrel 75 mg Tablet
75 mg PO DAILY Qty: 90 0RF
aspirin [Children's Aspirin] 81 mg Tablet,Chewable
81 mg PO DAILY Qty: 30 0RF
amlodipine 5 mg Tablet
5 mg PO DAILY Qty: 30 0RF
nitroglycerin 0.4 mg Tablet, Sublingual
0.4 mg sublingual [id number] PRN (Reason: Chest pain) Qty: 25 0RF
isosorbide mononitrate 30 mg Tablet Extended Release 24 Hr
30 mg PO DAILY Qty: 30 0RF
rosuvastatin 40 mg Tablet
40 mg PO QPM Qty: 30 0RF
Referrals:
Sergey Faust PA-C [Family Provider]
Activity Restrictions/Additional Instructions:
Follow-up with your control and recovery combat rescue
Interventions
Interventions:
*Risk Screen - Suicide Last Done: 10/06/24 10:34
*General Assessment Last Done: 10/06/24 11:19
*Neglect/Abuse Screening Last Done: 10/06/24 10:34
*ED- Fall Risk Assessment Last Done: 10/06/24 11:19
*ED COVID-19 Vaccine History Last Done: 10/06/24 11:19
ED- Cardiac Assessment Last Done: 10/06/24 11:19
Discharge Date and Time
Print Language: AZERBAIJANI
--- NOTE | 2024-10-06 11:30 | CON.CAR ---
Consultation
Consultation Request
Date/Time Consultation Requested: 10/06/2024 11:30
Date/Time Consultation Performed: 10/06/2024 11:30
Requesting Provider: Dr. Buckley
Performing Provider: JANN Coffey for Dr. Salas
Reason for Consultation: Chest pain
Medical History
-
Chief Complaint: Chest pain
History of Present Illness:
Antony Jolly is a 69-year-old male (known to Dr. Salas, his primary wirer helper), CAD (NSTEMI 07/2023 with PCI to mid RPDA, also with 60% mid LAD that was non flow-limiting by IFR), hypertension, dyslipidemia, former smoker, type II DM
(improved with weight loss) who is here for evaluation of chest discomfort. He had a recent admission 07/2024 with chest pain. He had a peak troponin of 0.046. Coronary angiography showed stable CAD. There was slow flow/decreased contrast
washout in LAD/left circumflex concerning for endothelial dysfunction. He was started on isosorbide mononitrate 30 mg daily. He endorses shortness of breath with activity today. He also had chest pain that radiated into his arm and jaw. He was
at rest. It lasted at least an hour. He reports it was severe.
Past Medical History
Past Medical History: CAD, HTN and Hypercholesterolemia
Past Surgical History: Other (Inguinal hernia repair)
Social History
Tobacco: Former Smoker
Family History
Family History: Reviewed & Not Pertinent
Allergies / Home Medications
Allergy/AdvReac Type Severity Reaction Status Date / Time
tetanus toxoid, adsorbed Allergy Intermediate Shortness Verified 09/30/24 23:12
of Breath
lisinopril Allergy Shortness Verified 09/30/24 23:12
of Breath
�Medication �Instructions �Recorded �Confirmed �Type
ascorbic acid (vitamin C) 500 mg 1,000 mg PO QPM Supplement 01/24/21 10/01/24 History
tablet (Vitamin C)
EPA-DHA 2 g PO QPM Supplement 07/23/23 07/29/23 History
cholecalciferol (vitamin D3) 5 g PO QPM Supplement 07/23/23 07/29/23 History
coenzyme Q10 100 mg capsule (Co 100 mg PO QPM Supplement 07/23/23 10/01/24 History
Q-10)
magnesium 250 mg tablet 500 mg PO QPM Supplement 07/23/23 10/01/24 History
multivitamin 1 tab PO DAILY Supplement 07/23/23 10/01/24 History
zinc acetate 50 mg (zinc) capsule 50 mg PO QPM Supplement 07/23/23 07/29/23 History
aspirin 81 mg chewable tablet 81 mg PO DAILY #30 tabs 07/25/23 10/01/24 Rx
(Children's Aspirin)
clopidogrel 75 mg tablet 75 mg PO DAILY #90 tabs 07/25/23 10/01/24 Rx
amlodipine 5 mg tablet 5 mg PO DAILY #30 tabs 07/30/23 10/01/24 Rx
nitroglycerin 0.4 mg sublingual 0.4 mg sublingual [id number] PRN 07/30/23 10/01/24 Rx
tablet Chest pain #25 tabs
isosorbide mononitrate 30 mg 30 mg PO DAILY #30 tabs 10/02/24 Rx
tablet,extended release 24 hr
rosuvastatin 40 mg tablet 40 mg PO QPM #30 tabs 10/02/24 Rx
Review of Systems
-
History Source: Patient
All other systems: Negative unless noted
Constitutional: No Symptoms
EENT: No Symptoms
Respiratory: No Symptoms
Cardiac: No Symptoms
Abdomen/GI: No Symptoms
: No Symptoms
Musculoskeletal: No Symptoms
Skin: No Symptoms
Neurological: No Symptoms
Endocrine: No Symptoms
Hematologic/Lymphatic: No Symptoms
Physical Exam
Vital Signs
Temp Resp BP Pulse Ox
97.5 F 16 118/71 100
10/06/24 10:33 10/06/24 10:33 10/06/24 10:33 10/06/24 11:23
Lab Results
10/06/24 11:14
Physical Exam
General: Well Developed, Well Nourished, No Apparent Distress and Comfortable
HEENT: Normocephalic, Anicteric and Moist Mucous Membranes
Respiratory: Clear and Non Labored Respirations
Cardiac: S1/S2
Breast: Deferred by me
GI: Soft, Non Tender, Non Distended and Normal Bowel Sounds
Rectal: Deferred by Provider
Genito-urinary: No Costovertebral Tender
Musculoskeletal: No Clubbing, No Cyanosis and No Edema
Skin: Warm and Dry
Neuro: AO x 3
Hematologic/Lymphatic: No Lymphadenopathy
Psych: Calm
Impression / Plan
-
I/P: 69M with CAD (PCI 07/2023), hypertension, dyslipidemia, former smoker, and recent admission with chest pain and abnormal troponin found to have stable CAD but likely endothelial dysfunction presented back with chest pain
Primary wirer helper: Dr. Salas
Chest pain
- Severe, at rest, radiating to neck/jaw/shoulders lasting at least one hour
- Troponin <0.012
- EKG pending
Endothelial dysfunction
- Slow flow/decreased contrast washout in LAD/LCx concerning for endothelial dysfunction on 10/01/2024 cardiac catheterization
- He was started on isosorbide mononitrate 30 mg daily, can increase to 60 mg daily, continue amlodipine 5 mg daily
- No beta-jag due to sinus bradycardia
- He has an CÉSAR eye allergy
CAD:
-Chronic, stable.
-Cath 07/24/23: Right dominant circulation with a nonocclusive 50-60% mid LAD lesion (IFR = 0.96) and a culprit, 80% mRPDA lesion status post successful PCI with reduction in stenosis to 0%, maintaining EAGLE-3 flow.
-Repeat cath on 10/01/2024 showed stable CAD, patent RPDA stent and slow flow/decreased contrast washout in LAD/LCx concerning for endothelial dysfunction.
-Maintain DAPT at this time.
-GDMT limited by BP/HR. Continue amlodipine. Isosorbide mononitrate started for arteriodilation.
HLD:
-Chronic, stable.
-Total cholesterol = 140, LDL = 76, HDL = 54, Triglycerides = 54.
-Rosuvastatin increased to 40 mg daily.
-Goal LDL < 55. Fasting lipid panel as an outpatient in 8 weeks
HTN, chronic, stable.
Type 2 diabetes mellitus, improved with weight loss, HgbA1c 4.9%
Data Reviewed
-
EKG: Report Reviewed by me
Radiology: Report Reviewed by me
Medical Tests (Nuc Med, Echo etc): Report Reviewed by me
Labs: Labs Reviewed by me
Old Records: Reviewed
[2024-10-06 11:39] LABS: ALT (SGPT) 31 U/L (0-50); AST (SGOT) 28 U/L (17-59); Albumin 4.1 g/dl (3.5-5.0); Alkaline Phosphatase 41 U/L (38-126); Blood Urea Nitrogen 10 mg/dl (9-20); Calcium 9.6 mg/dl (8.4-10.2); Carbon Dioxide 32 mmol/L (22-30); Chloride 104 mmol/L (98-107); Estimated Creatinine Clearance 96 ml/min; Glucose 98 mg/dl (70-99); Magnesium 2.1 mg/dl (1.6-2.3); Potassium 4.2 mmol/L (3.5-5.1); Sodium 139 mmol/L (135-145); Total Protein 6.5 g/dl (6.3-8.2); eGFR > 60.00
[2024-10-06 11:51] LABS: Troponin I < 0.012 ng/ml
== END 2024-10-06 13:41 | disposition home or self-care (01) ==
LOC: EMR 10:31
PROVIDERS: CONSULT PHYSICIAN Internal Medicine Cardiovascular Disease; EMERGENCY PHYSICIAN Emergency Medicine; FAMILY PHYSICIAN Physician Assistant Medical
DX: R07.9 Chest pain, unspecified (principal); I25.10 Atherosclerotic heart disease of native coronary artery without angina pectoris; E11.9 Type 2 diabetes mellitus without complications; I10 Essential (primary) hypertension; E78.00 Pure hypercholesterolemia, unspecified; I25.2 Old myocardial infarction; J45.909 Unspecified asthma, uncomplicated; Z79.02 Long term (current) use of antithrombotics/antiplatelets; Z79.82 Long term (current) use of aspirin; Z95.5 Presence of coronary angioplasty implant and graft; Z87.891 Personal history of nicotine dependence; Z86.718 Personal history of other venous thrombosis and embolism; Z82.49 Family history of ischemic heart disease and other diseases of the circulatory system
CPT/HCPCS: 99283; 80053; 83735; 84484; 85025; 93005

== ENCOUNTER 2024-10-31 00:33 | Emergency (ER) | payer MEDICARE, OTHER, SELFPAY ==
[2024-10-31 00:42] VITALS: BP 144/77
[2024-10-31 01:00] VITALS: BP 149/87; BMI 25.7
[2024-10-31 01:00] LABS: Hematocrit 41.3 % (39.0-52.0); Hemoglobin 14.0 g/dL (13.0-18.0); Mean Corp Hgb Conc. 33.9 g/dL (33.0-37.0); Mean Corpuscular Volume 88.4 fL (80.0-94.0); Nucleated Red Blood Cells % 0 % (-); Platelet Count 142 10^3/uL (130-400); Red Cell Dist. Width 14.1 % (11.5-14.5)
[2024-10-31 01:14] LABS: ALT (SGPT) 66 U/L (0-50); AST (SGOT) 46 U/L (17-59); Albumin 4.8 g/dl (3.5-5.0); Alkaline Phosphatase 51 U/L (38-126); Blood Urea Nitrogen 15 mg/dl (9-20); Calcium 9.7 mg/dl (8.4-10.2); Carbon Dioxide 29 mmol/L (22-30); Chloride 106 mmol/L (98-107); Estimated Creatinine Clearance 100 ml/min; Glucose 85 mg/dl (70-99); Potassium 4.1 mmol/L (3.5-5.1); Sodium 142 mmol/L (135-145); Total Protein 7.0 g/dl (6.3-8.2); eGFR > 60.00
[2024-10-31 01:28] LABS: Troponin I < 0.012 ng/ml
[2024-10-31 02:00] VITALS: BP 119/71
[2024-10-31 03:00] VITALS: BP 137/74
[2024-10-31 04:00] VITALS: BP 133/75
[2024-10-31 04:20] LABS: Troponin I < 0.012 ng/ml
--- NOTE | 2024-10-31 04:45 | ED.GENMED ---
History of Present Illness
General
Chief Complaint: Chest Pain
Source: patient
Time Seen by Provider: 10/31/24 02:58
Nursing documentation reviewed up to this point in time: agreed with
History of Present Illness
History of Present Illness:
Note:
CHIEF COMPLAINT(S)
Pain between the shoulder blades and concerns about low pulse rate.
HISTORY OF PRESENT ILLNESS
The patient is a 69-year-old male with a prior cardiac history, including a recent hospitalization approximately one and a half to two weeks ago due to similar chest pain. He reports the recent onset of pain today located between the shoulder
blades. This pain was described as a gripping discomfort, radiating to his triceps and upper extremities, similar to his previous episode. The patient noted a drop in his pulse rate to 44 while at rest, which he attributes to his medication, as he
is currently prescribed and compliant with Atenolol (based on context, assumed for heart rate control). Although concerned about the bradycardia, it is explained that this is a known effect of the medication and not inherently dangerous given his
current status. No current pain is reported at the moment of examination.
The patient had a recent cardiac catheterization, after which it was recommended to have continued follow-up. Tonights episode of pain prompted a repeat evaluation to consider the possibility of cardiac stress. Initial cardiac enzyme tests showed no
significant elevations, implying no recent myocardial distress. The plan involves repeating the troponin test as it has been over six hours since the onset of pain to rule out myocardial injury definitively. The patient is informed that a negative
test indicates that the heart is not distressed enough to release troponin, but he is also informed that it is not entirely without risk. Follow-up with his drag out man is arranged for further evaluation of his cardiovascular health.
EXTERNAL RECORDS REVIEWED
External records indicate the patient had a heart catheterization recently, with reports suggesting no significant occlusion or abnormality of coronary vessels.
CHRONIC MEDICAL CONDITIONS SIGNIFICANTLY AFFECTING CARE
The patient has a history of cardiovascular issues and is currently on a heart rate-controlling medication.
MEDICATIONS
The patient is currently taking Atenolol, which is known to lower pulse rate, particularly at rest.
PHYSICAL EXAM
General: Alert, no acute distress.
Skin: Warm, dry.
Head: Normocephalic, atraumatic.
Neck: Supple, trachea midline.
Eye, Ears, Nose, Mouth, and Throat: Oral mucosa moist.
Cardiovascular: Normal peripheral perfusion, no edema. Bradycardia present, heart rate recorded at 52-53 bpm.
Respiratory: Respirations are non-labored.
Gastrointestinal: Abdomen nondistended.
Back: Normal range of motion, normal alignment.
Musculoskeletal: Normal range of motion, normal strength.
Neurological: Alert and oriented to person, place, time, and situation. No focal neurological deficit observed.
Psychiatric: Cooperative, appropriate mood & affect.
PROBLEM LIST
Acute Problems:
- Chest pain between shoulder blades
- Bradycardia
Chronic Problems:
- Cardiovascular disease
PLAN
- Repeat troponin test to rule out myocardial infarction, considering recent onset within six hours.
- Arrange follow-up with drag out man for continuity of care and further evaluation of cardiac status.
- Reassure patient about the benign nature of medication-induced bradycardia when at rest.
- Pending lab results, potential discharge if all evaluations remain stable with instructions to seek care if symptoms reoccur.
DIFFERENTIAL DIAGNOSIS
The Differential Diagnosis includes, in no particular order and is not limited to:
- Myocardial Ischemia/Infarction
- Gastroesophageal Reflux Disease (GERD)
- Musculoskeletal Pain
- Anxiety / Stress-Induced Pain
- Aortic Dissection
- Pulmonary Embolism
- Pericarditis
- Costochondritis
- Esophageal Spasm
- Peptic Ulcer Disease
HEART:
Result Summary
4 points Moderate Score (4-6 points)
Risk of MACE of 12-16.6%.
If EKG is highly suspicious, many experts recommend further workup and admission even with a low HEART Score.
Inputs:
History -> 0 = Slightly suspicious
EKG -> 0 = Normal
Age -> 2 = >=5
Risk Factors -> 2 = >= risk factors or history of atherosclerotic disease
Initial Troponin -> 0 = <=ormal limit
Disposition:
SUMMARY OF ENCOUNTER
The patient, a 69-year-old male with a history of cardiovascular issues, presented to the emergency department with resolved chest pain. Initial evaluations included troponin testing and an EKG. The cardiac enzyme test, specifically troponin, was
negative, indicating no recent myocardial ischemia or infarction events. The EKG exhibited no changes from previous recordings, supporting the assessment of a non-acute cardiac event. Given the stability of his condition and both clinical and test
results being reassuring, the decision was made to discharge the patient with specific follow-up instructions to prevent further complications.
DISPOSITION
Discharge.
PLAN
- Continue monitoring heart symptoms and seek immediate medical attention if any recurrence of chest pain or other concerning symptoms.
- Follow up with a drag out man to further evaluate and manage cardiovascular health.
INDEPENDENT REVIEW OF LABS AND INTERPRETATION OF TESTS
My independent review of the troponin test is negative for any significant elevations, indicating no acute myocardial injury.
My independent EKG interpretation is unchanged and consistent with previous evaluations, supporting the non-acute nature of the current presentation.
FOLLOW-UP INSTRUCTIONS
Please schedule and attend a follow-up visit with your drag out man.
MEDICATION RECONCILIATION
The patient is currently on atenolol, consistent with their history of cardiovascular disease.
MEDICAL DECISION MAKING
-Number and Complexity of Problems Addressed: Chronic conditions affecting care [cardiovascular disease]
-Data:
Category 1:
Non-emergency department records reviewed indicate the patient had a recent heart catheterization with no significant occlusion.
Category 2:
My independent interpretation of the EKG shows it is unchanged compared to prior results, confirming stable cardiac status.
Category 3:
There were no documented discussions with other healthcare providers, but follow-up with the drag out man is advised for ongoing management.
-Risk:
Consideration of Admission/Observation: Escalation of care including admission/observation was considered given the complexity and risk of the patients presenting complaint, exam findings, and/or their underlying comorbidities. However, ultimately,
I feel the patient is safe for outpatient management with close follow-up. Reasoning: Work-up reassuring, does not reveal any acute life/organ threatening processes, patients symptoms well controlled upon reevaluation, reexamination is reassuring,
vitals are stable, patient agreeable with discharge, reliable for follow-up.
DIAGNOSIS
Chest pain, unspecified (R07.9)
Bradycardia, unspecified (R00.1)
Essential hypertension (I10)
Past History
Past History
ED Past Medical History: Asthma (seasonal), CAD, HTN, Hypercholesterolemia, NIDDM (Diet controlled) and Other (Chronic diverticulitis, PNA, DVT, Renal calculus, )
ED Past Surgical History: Cardiac, Tonsilectomy and Other (Hernia repair); Negative Appendectomy, Bowel resection or Cholecystectomy
Social History
Tobacco: Former smoker
Alcohol: None
Drug: None
Personal:
Living: with family
Employment: Employed
Family History
Family History: Hypertension
Phy Exam
Physical Exam
Physical Exam:
.
Scores
Heart Score for Chest Pain Patients
STEMI patient?: No
History: Slightly or Non-Suspicious
ECG: Normal
Age: >/= 65 years
Risk Factors: >/= 3 Risk Factors or History of CAD
Troponin: </= Normal Limit
Heart Score for Chest Pain Patients: 4
Heart Score Risk: 20.3% MACE over next 6 weeks
Course
Orders/Labs/Results
Orders:
Orders
10/31/24 00:33
Electrocardiogram (*1) Urgent
Reason for Study: Chest Pain
EKG- Treatment ONCE
10/31/24 00:49
Complete Blood Count/With Diff Urgent
Comprehensive Metabolic Panel Urgent
Troponin I Urgent
10/31/24 03:04
Electrocardiogram (*1) Urgent
Reason for Study: Chest Pain
EKG- Treatment ONCE
10/31/24 03:39
Troponin I Urgent
10/31/24 04:44
CR Chest - 2 Views Urgent
Comment:
Reason For Exam: cp
Abnormal Lab Results
10/31/24
00:49
WBC 4.0 L 10^3/uL
(4.8-10.8)
RBC 4.67 L 10^6/uL
(4.70-6.10)
MPV 11.6 H fL
(7.4-10.4)
Monocytes % 14.3 H %
(1.7-9.3)
ALT 66 H U/L
(0-50)
10/31/24 00:49
10/31/24 00:49
Vital Signs
Initial and Last Documented VS:
Initial Vital Signs
Temp Pulse Resp BP Pulse Ox
97.2 F 48 16 144/77 98
10/31/24 00:42 10/31/24 00:42 10/31/24 00:42 10/31/24 00:42 10/31/24 00:42
Last Documented Vital Signs
Temp Pulse Resp BP Pulse Ox
97.2 F 48 20 130/80 98
10/31/24 00:42 10/31/24 04:47 10/31/24 04:47 10/31/24 05:50 10/31/24 04:47
*Radiology
Radiology exam reviewed: all reviewed NAD by ED Provider
*Pulse Oximetry
SaO2: 98
Oxygen Mode of Delivery: Room air
Patient hypoxic: no
*Critical Care Note
Total Time (30-74mins, 75-104mins- exclusive of procedures): Not Applicable
Update Note
Update Note:
EKG shows sinus bradycardia rate of 52 with normal intervals, normal axis. No evidence of acute ischemia present. When compared with previous EKG, no significant change was found.
ED Attending Note
-
Portions of this chart may have been created with voice recognition software.� Occasional wrong word or��sound alike� substitutions may have occurred due to the inherent limitations of voice recognition software.
Discharge Plan
Departure
Patient Disposition: Home (Routine Discharge)
Date of Disposition: 10/31/24
Time of Disposition: 05:23
Patient with high blood pressure during this ER visit?: Yes
Discharge Problem:
Chest pain
Instructions: Chest Pain CBC Follow Up
Prescriptions:
No Action
ascorbic acid (vitamin C) [Vitamin C] 500 MG tablet
2,000 mg PO DAILY
multivitamin Tablet
1 tab PO DAILY
magnesium 250 mg Tablet
500 mg PO DAILY
coenzyme Q10 [Co Q-10] 100 mg Capsule
100 mg PO BID
EPA-DHA
2 g PO QPM
cholecalciferol (vitamin D3)
5 g PO QPM
clopidogrel 75 mg Tablet
75 mg PO DAILY Qty: 90 0RF
aspirin [Children's Aspirin] 81 mg Tablet,Chewable
81 mg PO DAILY Qty: 30 0RF
amlodipine 5 mg Tablet
5 mg PO DAILY Qty: 30 0RF
nitroglycerin 0.4 mg Tablet, Sublingual
0.4 mg sublingual [id number] PRN (Reason: Chest pain) Qty: 25 0RF
rosuvastatin 40 mg Tablet
40 mg PO QPM Qty: 30 0RF
isosorbide mononitrate 30 mg tablet extended release 24 hr
60 mg PO DAILY
vitamin B complex Tablet
1 tab PO DAILY
Referrals:
Sergey Faust PA-C [Family Provider]
Interventions
Interventions:
*Risk Screen - Suicide Last Done: 10/31/24 00:42
*General Assessment Last Done: 10/31/24 00:42
*Neglect/Abuse Screening Last Done: 10/31/24 00:42
*ED- Fall Risk Assessment Last Done: 10/31/24 05:50
*ED COVID-19 Vaccine History Last Done: 10/31/24 05:50
*Nursing Disposition Last Done: 10/31/24 05:50
ED- Cardiac Assessment Last Done: 10/31/24 00:55
Discharge Date and Time
Discharge Date/Time: 10/31/24 05:50
Print Language: AMERICAN
[2024-10-31 05:50] VITALS: BP 130/80
== END 2024-10-31 05:50 | disposition home or self-care (01) ==
LOC: EMR 00:33
PROVIDERS: EMERGENCY PHYSICIAN Student in an Organized Health Care Education/Training Program; FAMILY PHYSICIAN Physician Assistant Medical
DX: R07.9 Chest pain, unspecified (principal); I25.10 Atherosclerotic heart disease of native coronary artery without angina pectoris; I10 Essential (primary) hypertension; E78.00 Pure hypercholesterolemia, unspecified; J45.909 Unspecified asthma, uncomplicated; Z86.718 Personal history of other venous thrombosis and embolism; Z87.891 Personal history of nicotine dependence; Z90.49 Acquired absence of other specified parts of digestive tract
CPT/HCPCS: 99285; 71046; 80053; 84484; 85025; 93005

== ENCOUNTER 2024-12-30 16:22 | Emergency (ER) | payer MEDICARE, OTHER, SELFPAY ==
[2024-12-30 16:27] VITALS: BP 112/60
[2024-12-30 16:50] LABS: Hematocrit 41.1 % (39.0-52.0); Hemoglobin 13.4 g/dL (13.0-18.0); Mean Corp Hgb Conc. 32.6 g/dL (33.0-37.0); Mean Corpuscular Volume 91.3 fL (80.0-94.0); Nucleated Red Blood Cells % 0 % (-); Platelet Count 166 10^3/uL (130-400); Red Cell Dist. Width 13.2 % (11.5-14.5)
[2024-12-30 17:02] LABS: ALT (SGPT) 55 U/L (0-50); AST (SGOT) 50 U/L (17-59); Albumin 4.5 g/dl (3.5-5.0); Alkaline Phosphatase 51 U/L (38-126); Blood Urea Nitrogen 15 mg/dl (9-20); Calcium 9.7 mg/dl (8.4-10.2); Carbon Dioxide 26 mmol/L (22-30); Chloride 106 mmol/L (98-107); Glucose 158 mg/dl (70-99); Potassium 4.3 mmol/L (3.5-5.1); Sodium 135 mmol/L (135-145); Total Protein 7.0 g/dl (6.3-8.2); eGFR > 60.00
[2024-12-30 17:13] LABS: Troponin I 0.014 ng/ml
--- NOTE | 2024-12-30 20:19 | ED.GENMED ---
History of Present Illness
General
Chief Complaint: Cardiac Symptoms
Source: patient
Exam Limitations: none
Time Seen by Provider: 12/30/24 20:01
History of Present Illness
History of Present Illness:
69-year-old male with history of coronary artery disease presents with intermittent chest discomfort over the past couple days. The pain has been random and can happen at rest or with exertion. He states has been very active redoing his bathroom
recently. He is on aspirin and Plavix. No recent travel or surgery. No new leg swelling. He states today he was short of breath with the symptoms. This is what brought him in. No other complaints at this time
Past History
Past History
ED Past Medical History: Asthma (seasonal), CAD, HTN, Hypercholesterolemia, NIDDM (Diet controlled) and Other (Chronic diverticulitis, PNA, DVT, Renal calculus, )
ED Past Surgical History: Cardiac, Tonsilectomy and Other (Hernia repair); Negative Appendectomy, Bowel resection or Cholecystectomy
Social History
Tobacco: Former smoker
Alcohol: None
Drug: None
Personal:
Living: with family
Employment: Employed
Family History
Family History: Hypertension
Phy Exam
Physical Exam
Physical Exam:
General: Well-appearing male no acute respiratory distress
HEENT: Normal cephalic atraumatic
Heart: Regular rate and rhythm
Lungs: Clear no wheeze
Abdomen is soft nontender
Extremities mild edema bilateral lower extremities no cyanosis
Course
Orders/Labs/Results
Orders:
Orders
12/30/24 16:23
ECG [Electrocardiogram (*1)] Urgent
Reason for Study: Chest Pain
EKG- Treatment ONCE
12/30/24 16:41
Complete Blood Count/With Diff Urgent
Comprehensive Metabolic Panel Urgent
Troponin I Urgent
12/30/24 20:19
CR Chest - 2 Views Urgent
Comment:
Reason For Exam: chest pain
12/30/24 20:26
Troponin I Urgent
Abnormal Lab Results
12/30/24
16:41
WBC 4.6 L 10^3/uL
(4.8-10.8)
RBC 4.50 L 10^6/uL
(4.70-6.10)
MCHC 32.6 L g/dL
(33.0-37.0)
MPV 11.6 H fL
(7.4-10.4)
Absolute Lymphs (auto) 1.1 L 10^3/uL
(1.2-3.4)
Monocytes % 11.1 H %
(1.7-9.3)
Creatinine 0.6 L mg/dL
(0.7-1.3)
Glucose 158 H mg/dl
(70-99)
ALT 55 H U/L
(0-50)
12/30/24 16:41
12/30/24 16:41
Vital Signs
Initial and Last Documented VS:
Initial Vital Signs
Temp Pulse Resp BP Pulse Ox
98.5 F 64 18 112/60 98
12/30/24 16:27 12/30/24 16:27 12/30/24 16:27 12/30/24 16:27 12/30/24 16:27
Last Documented Vital Signs
Temp Pulse Resp BP Pulse Ox
98.5 F 51 17 107/84 98
12/30/24 16:27 12/30/24 21:15 12/30/24 21:15 12/30/24 21:00 12/30/24 21:15
MDM/Problems Addressed
Differential Diagnosis Includes:
Chest pain. With history of the same. No risk factors for PE. He is pain-free currently. The pain occasionally radiates to his hands bilaterally. Is not associated predictably with exertion. The pain is atypical. Given intermittent nature's
do not suspect dissection or PE. Initial troponin is undetectable we repeat troponin to evaluate for any myocardial injury. EKG shows sinus bradycardia. X-ray pending. If negative will have him follow-up with his paper stripper as an outpatient
*Pulse Oximetry
SaO2: 98
Oxygen Mode of Delivery: Room air
Patient hypoxic: no
*Critical Care Note
Total Time (30-74mins, 75-104mins- exclusive of procedures): Not Applicable
Update Note
Update Note:
Repeat troponin still normal. Chest x-ray without evidence of widened mediastinum pneumonia pneumothorax or other acute cardiopulmonary abnormality. Patient has atypical discomfort. Cardiac workup otherwise okay. Stable for discharge with
cardiology follow-up. Chest pain hotline used for this.
ED Attending Note
-
Portions of this chart may have been created with voice recognition software.� Occasional wrong word or��sound alike� substitutions may have occurred due to the inherent limitations of voice recognition software.
Discharge Plan
Departure
Patient Disposition: Home (Routine Discharge)
Date of Disposition: 12/30/24
Time of Disposition: 22:04
Patient with high blood pressure during this ER visit?: No
Discharge Problem:
Chest pain
Instructions: Chest Pain CBC Follow Up
Prescriptions:
No Action
ascorbic acid (vitamin C) [Vitamin C] 500 MG tablet
2,000 mg PO DAILY
multivitamin Tablet
1 tab PO DAILY
magnesium 250 mg Tablet
500 mg PO DAILY
coenzyme Q10 [Co Q-10] 100 mg Capsule
100 mg PO BID
EPA-DHA
2 g PO QPM
cholecalciferol (vitamin D3)
5 g PO QPM
clopidogrel 75 mg Tablet
75 mg PO DAILY Qty: 90 0RF
aspirin [Children's Aspirin] 81 mg Tablet,Chewable
81 mg PO DAILY Qty: 30 0RF
amlodipine 5 mg Tablet
5 mg PO DAILY Qty: 30 0RF
nitroglycerin 0.4 mg Tablet, Sublingual
0.4 mg sublingual [id number] PRN (Reason: Chest pain) Qty: 25 0RF
rosuvastatin 40 mg Tablet
40 mg PO QPM Qty: 30 0RF
isosorbide mononitrate 30 mg tablet extended release 24 hr
60 mg PO DAILY
vitamin B complex Tablet
1 tab PO DAILY
Referrals:
Sergey Faust PA-C [Family Provider]
Activity Restrictions/Additional Instructions:
Continue current medications. Please return here if worse otherwise follow-up with cardiology. They should call you to set up an appointment
Interventions
Interventions:
*Risk Screen - Suicide Last Done: 12/30/24 16:27
*General Assessment Last Done: 12/30/24 16:27
*Neglect/Abuse Screening Last Done: 12/30/24 16:27
*ED- Fall Risk Assessment Last Done: 12/30/24 16:27
*ED COVID-19 Vaccine History Last Done: 12/30/24 16:27
*ED Influenza Vaccine History Last Done: 12/30/24 16:27
ED- Pulmonary Assessment Last Done: 12/30/24 20:24
ED- Cardiac Assessment Last Done: 12/30/24 20:24
Discharge Date and Time
Print Language: CZECH
[2024-12-30 20:23] VITALS: BP 118/82
[2024-12-30 21:00] VITALS: BP 107/84
[2024-12-30 21:12] LABS: Troponin I 0.021 ng/ml
[2024-12-30 22:19] VITALS: BP 135/84
== END 2024-12-30 22:20 | disposition home or self-care (01) ==
LOC: EMR 16:22
PROVIDERS: Physician Assistant; Student in an Organized Health Care Education/Training Program; EMERGENCY PHYSICIAN Emergency Medicine; FAMILY PHYSICIAN Physician Assistant Medical
DX: R07.9 Chest pain, unspecified (principal); R00.1 Bradycardia, unspecified; E11.9 Type 2 diabetes mellitus without complications; I25.10 Atherosclerotic heart disease of native coronary artery without angina pectoris; I10 Essential (primary) hypertension; E78.00 Pure hypercholesterolemia, unspecified; J45.909 Unspecified asthma, uncomplicated; Z79.02 Long term (current) use of antithrombotics/antiplatelets; Z79.82 Long term (current) use of aspirin; Z86.718 Personal history of other venous thrombosis and embolism; Z87.891 Personal history of nicotine dependence; Z82.49 Family history of ischemic heart disease and other diseases of the circulatory system
CPT/HCPCS: 99284; 71046; 80053; 84484; 85025; 93005

== ENCOUNTER → 2025-02-17 15:38 | Outpatient (REF) | payer MEDICARE, OTHER, SELFPAY | LOC: RAD 15:38 | PROVIDERS: ATTENDING PHYSICIAN Physician Assistant Medical; FAMILY PHYSICIAN Physician Assistant Medical | DX: M79.605 Pain in left leg (principal) | CPT/HCPCS: 93971 ==